=== PATIENT | female | born 1975 | race Caucasian/White ===

== ENCOUNTER 2024-01-19 11:29 | Outpatient (OUT) | payer OTHER, SELFPAY ==
--- NOTE | 2024-01-19 11:37 | XR_ITS ---
The [address] [address] Patient Name: FABRIZIO DOS SANTOS MRN: [id number] date: 1975 Sex: F Assigned Patient Location: RAD Current Patient Location: RAD Accession/Order Number: [id number] Exam Date: 01/19/2024 11:50 Report Date: 01/19/2024 13:24 At the request of: SLOAN SHERMAN Procedure: XR hip RT 2V w/ pelvis PROCEDURE: XR hip RT 2V w/ pelvis COMPARISON: None. HISTORY: Right Hip Pain M25.551 FINDINGS: BONES:No fracture, acute abnormality, or significant arthropathy. SOFT TISSUES:Negative. No visible soft tissue swelling. EFFUSION:None visible. OTHER: Large amount of stool throughout the colon. XR/XR hip RT 2V w/ pelvis IMPRESSION: No acute bony abnormality Electronically authenticated by: GERTRUDE DURÁN Date: 01/19/2024 13:24
== END 2024-01-19 11:30 | disposition home or self-care (01) ==
LOC: RAD 11:32
PROVIDERS: PCP Family Medicine; Visit Provider Family Medicine
DX: M25.551 Pain in right hip (principal)
CPT/HCPCS: 73502

== ENCOUNTER 2024-08-24 11:46 | Outpatient (OUT) | payer OTHER, SELFPAY ==
--- NOTE | 2024-08-24 11:51 | XR_ITS ---
The [address] [address] Patient Name: FABRIZIO DOS SANTOS MRN: [id number] date: 1975 Sex: F Assigned Patient Location: [facility] Current Patient Location: Accession/Order Number: [id number] Exam Date: 08/24/2024 11:55 Report Date: 08/25/2024 06:16 At the request of: SLOAN SHERMAN Procedure: XR hand LT min 3V PROCEDURE: XR wrist LT min 3V, XR hand LT min 3V HISTORY: Left Wrist Pain, Left Hand Pain ; first metacarpal pain radiating into wrist and arm since falling 5 weeks ago COMPARISON: None. FINDINGS: BONES:Several tiny ossifications adjacent the first carpal-metacarpal joint which appear to have corticated margins suggestive of sequela of remote injuries. Mild narrowing of the first carpal-metacarpal joint and the first metacarpophalangeal joint. SOFT TISSUES:No visible soft tissue swelling. EFFUSION:None visible. OTHER: Negative. XR/XR hand LT min 3V IMPRESSION: 1. 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 2. Several tiny ossifications adjacent the first carpal-metacarpal joint suspected represent sequela of remote injury. A subacute tiny avulsion fracture cannot be completely excluded. Electronically authenticated by: BRIGITTE VELAZQUEZ Date: 08/25/2024 06:16
--- NOTE | 2024-08-24 11:51 | XR_ITS ---
The [address] [address] Patient Name: FABRIZIO DOS SANTOS MRN: [id number] date: 1975 Sex: F Assigned Patient Location: [facility] Current Patient Location: Accession/Order Number: [id number] Exam Date: 08/24/2024 11:55 Report Date: 08/25/2024 06:16 At the request of: SLOAN SHERMAN Procedure: XR wrist LT min 3V PROCEDURE: XR wrist LT min 3V, XR hand LT min 3V HISTORY: Left Wrist Pain, Left Hand Pain ; first metacarpal pain radiating into wrist and arm since falling 5 weeks ago COMPARISON: None. FINDINGS: BONES:Several tiny ossifications adjacent the first carpal-metacarpal joint which appear to have corticated margins suggestive of sequela of remote injuries. Mild narrowing of the first carpal-metacarpal joint and the first metacarpophalangeal joint. SOFT TISSUES:No visible soft tissue swelling. EFFUSION:None visible. OTHER: Negative. XR/XR wrist LT min 3V IMPRESSION: 1. 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 2. Several tiny ossifications adjacent the first carpal-metacarpal joint suspected represent sequela of remote injury. A subacute tiny avulsion fracture cannot be completely excluded. Electronically authenticated by: BRIGITTE VELAZQUEZ Date: 08/25/2024 06:16
--- OUTSIDE RECORDS SUMMARY | 2024-08-24 11:58 | XMS_ITS | CCD ---
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 Name Role Phone Sloan Sherman MD Primary Care Provider Stanislaw Hutton MD Unavailable Rafi Salcedo MD Unavailable [phone] Edwin LOADERS.Arline MONTOYA Unavailable Chantal Carr RN Unavailable Juancho JOAQUIN, Radha Unavailable Unavailable Brit Brooks RN Unavailable Unavailable DR SLOAN SHERMAN Admitting Unavailable DR SLOAN SHERMAN Attending Unavailable DR SLOAN SHERMAN Consulting Unavailable Sloan Sherman MD Primary Care Provider Stanislaw Hutton MD Unavailable Rafi Salcedo MD Unavailable Edwin LOADERS.LINDSAY, Arline Unavailable Lilly CANALES Chantal Unavailable [phone] Brit Brooks RN Unavailable Unavailable Sloan Sherman MD Primary Care Provider Lilly CANALES, Chantal Unavailable Ayla Brooks RNin Unavailable Unavailable Sloan Sherman MD Primary Care Provider Stanislaw Hutton MD Unavailable Rafi Salcedo MD Unavailable Edwin LOADERS.LINDSAY, Arline Unavailable Lilly CANALES, Chantal Unavailable [phone] Juancho JOAQUIN, Radha Unavailable Unavailable Ayla Brooks RNin Unavailable Unavailable Sherman, Sloan Unavailable Lilly CANALES, Chantal Unavailable [phone] oTdd CANALES, Brit Unavailable Unavailable Asaad, Imad Unavailable Sloan Sherman MD Unavailable FABIANA LAMB Attending Unavailable ERICK PEDRO Attending Unavailable ERICK PEDRO Referring Unavailable Sloan Sherman MD Primary Care Provider SHERMAN, SLOAN E Primary Care Unavailable REENA SENIOR Attending Unavailable SHERMAN, SLOAN E Primary Care Unavailable BARRETO, DAPHNIE Referring Unavailable SHERMAN, SLOAN E Primary Care Unavailable SHERMAN, SLOAN E Referring Unavailable SHERMAN, SLOAN E Primary Care Unavailable CIOCE, JESSICA C Referring Unavailable CIOCE, JESSICA C Attending Unavailable SHERMAN, SLOAN E Primary Care Unavailable SHERMAN, SLOAN E Primary Care Unavailable CIOCE, JESSICA C Attending Unavailable SHERMAN, SLOAN E Primary Care Unavailable CIOCE, JESSICA C Referring Unavailable ELISHA, PAULA Referring Unavailable SHERMAN, SLOAN E Primary Care Unavailable SHERMAN, SLOAN E Primary Care Unavailable TRISTAKERTBENJYREENA Attending Unavailable SELF Referring Unavailable SHERMAN, SLOAN E Primary Care Unavailable PASKERTBENJYREENA Attending Unavailable SELF Referring Unavailable SHERMAN, SLOAN E Primary Care Unavailable ELISHA, PAULA Referring Unavailable SHERMAN, SLOAN E Primary Care Unavailable BARRETO, DAPHNIE Referring Unavailable ELISHA, PAULA Attending Unavailable SHERMAN, SLOAN E Primary Care Unavailable BARRETO, DAPHNIE Referring Unavailable SHERMAN, SLOAN E Primary Care Unavailable ELISHA, PAULA Referring Unavailable SHERMAN, SLOAN E Primary Care Unavailable CIOCE, JESSICA C Referring Unavailable SHERMAN, SLOAN E Primary Care Unavailable Pack, Shona Attending Unavailable SHERMAN, SLOAN E Primary Care Unavailable JOSHUA LAWS Attending Unavailable Pack, Shona Referring Unavailable SHERMAN, SLOAN E Primary Care Unavailable CIOCE, JESSICA C Referring Unavailable SHERMAN, SLOAN E Primary Care Unavailable FABIANA LAMB Referring Unavailable ELISHA, PAULA Referring Unavailable SHERMAN, SLOAN E Primary Care Unavailable BARRETO, DAPHNIE Attending Unavailable Allergies Allergy Classification Reported Allergen(s) Allergy Type Date of Onset Reaction(s) Facility Macrolides (antibiotic) (1 source) Erythromycin Drug Allergy 021 Vomiting [facility] Prochlorperazine (1 source) Prochlorperazine Drug Allergy Myalgia [facility] (20 sources) Erythromycin; Translations: [ERYTHROMYCIN BASE] Drug Allergy Vomiting [facility] (20 sources) Prochlorperazine; Translations: [PROCHLORPERAZINE] Drug Allergy Myalgia [facility] (1 source) Erythromycin Drug Allergy [facility] [place] [facility] (1 source) Prochlorperazine Drug Allergy [facility] [place] [facility] (6 sources) Allergies Reconciled Propensity to adverse reactions Unknown [facility] Other (7 sources) Compazine *ANTIPSYCHOTICS/ANT IMANIC AGENTS* Propensity to adverse reactions Unknown [facility] Other (6 sources) patient allergy list reviewed by nurse or physicia Propensity to adverse reactions Comment:Done [facility] Other Medications Current Medications Medication Drug Class(es) Dates Sig (Normalized) Sig (Original) Albuterol (1 source) beta2-Adrenergic Agonist Start: 02-03-2024 take 1 puff(s) by inhalation every four to six hours Albuterol Sulfate Active 2 PUFF INHALATION EVERY 4-6 HOURS 6.7 February 03, 2024 12:00am amoxicillin 500 mg oral capsule (1 source) Penicillin-class Antibacterial Start: 09-08-2023 take 1 capsule by mouth every eight hours Amoxicillin 500 MG 1 capsule Orally every 8 hrs for 5 day(s) Aug, Active anastrozole 1 mg oral tablet (20 sources) Aromatase Inhibitor Start: 11-16-2023 anastrozole (ARIMIDEX) 1 mg tablet take 1 tablet once daily 90 tablet 3 11/16/2023 Active Start: 01-15-2022 End: 12-02-2022 take 1 tablet by mouth every twenty-four hours Anastrozole 1 MG 1 tablet Orally Once a day for 0 days Feb, Active Comment on above: Take 1 tablet by shorty th once daily. azithromycin 250 mg oral tablet (6 sources) Macrolide Antimicrobial Start: 09-27-20 Azithromycin 250 MG as directed Orally 2 tabs po today, then 1 tab daily x 4 more days for 5 Sep, Active cefdinir 300 mg oral capsule (1 source) Cephalosporin Antibacterial Start: 02-03-20 take 300 mg by mouth twice daily Cefdinir Active 300 MG PO Twice daily February 03, 2024 12:00am cholecalciferol 0.025 mg oral capsule (8 sources) Vitamin D Start: 03-05-20 take 1 capsule by mouth every twenty-four hours Vitamin D-3 25 MCG (1000 UT) 1 capsule Orally Once a day for 0 days Feb, Active Start: 12-22-2021 End: 04-01-2022 take 1 capsule by mouth every week at mealtime cholecalciferol, Vitamin D3, (VITAMIN D3) 1,250 mcg (50,000 unit) cap capsule Take 1 capsule by mouth one time a week. With food 8 capsule 0 12/22/2021 04/01/2022 Discontinued Comment on above: Take 1 capsule by mo ut one time a week. With food dextromethorphan hydrobromide 15 mg / guaiFENesin 400 mg / pseudoephedrine hydrochloride 60 mg oral tablet (1 source) alpha-Adrenergic Agonist, Uncompetitive U-edxhxe-M-aspartate Receptor Antagonist, Sigma-1 Agonist Start: 4 take 4 tablets by mouth every twenty-four hours Pseudoephedrin v-Ny-Qguehxdgd in (Capmist Dm) 60-15-400 mg tablet Active 1 TAB PO EVERY 4-6 HOURS January 30, 2024 1:00am do not exceed 4 doses per 24 hrs 1.5 ml fremanezumab-vfrm 150 mg/ml prefilled syringe (20 sources) Start: Fremanezumab-V frm (Ajovy Autoinjector) 225 mg/1.5 mL auto-injector Active MG SUBCUT January 30, 2024 1:00am Start: 04-08-2022 AJOVY AUTOINJE CTOR 225 mg/1.5 mL auto-injector 04/08/2022 Active Glucosamine 1500 Complex (6 sources) Glucosamine 1500 Complex Active lamoTRIgine 100 mg oral tablet (20 sources) Mood Stabilizer, Anti-epileptic Agent Start: 03-05-2022 take 1 tablet by mouth every twenty-four hours lamoTRIgine 100 MG 1 tablet Orally Once a day for 0 days Feb, Active Start: 09-01-2019 lamoTRIgine 10 0MG lamoTRIgine( 100MG Oral two times daily ) Active -Hx Entry Oral two times daily for 0 *Pick strength-form from Placed for eRX* Feb, Active Comment on above: Take 100 mg by mouth twice daily. levothyroxine sodium 0.175 mg oral tablet (2 sources) l-Thyroxine Start: 2023 take 1 tablet by mouth once daily levothyroxine (SYNTHROID) 175 mcg tablet Take 1 tablet by mouth once daily. 90 tablet 3 06/26/2024 Active liothyronine sodium 0.005 mg oral tablet (2 sources) l-Triiodothyronine Start: 2023 take 1 tablet by mouth once daily liothyronine (CYTOMEL) 5 mcg tablet Take 1 tablet by mouth once daily. 90 tablet 3 06/26/2024 Active methylPREDNISolone 4 mg oral tablet (1 source) Corticosteroid Start: 2022 methylPREDNISolone 4 MG as directed Orally for 6 days Aug, Active multivit-min/vit C/herb no.124 (AIRBORNE GUMMY ORAL) (20 sources) multivit-min/vit C/herb no.124 (AIRBORNE GUMMY ORAL) Take by mouth. Active multivit-min/vit C/herb no.124 (AIRBORNE GUMMY ORAL) Take by mouth. 0 Active Comment on above: Take by mouth. oseltamivir 75 mg oral capsule (1 source) Neuraminidase Inhibitor Start: 01-30-20 24 take 1 capsule by mouth twice daily Oseltamivir (Tamiflu) 75 mg capsule Active 75 MG PO Twice daily 08 26January 30, 2024 1:00am polyethylene glycol 3350 [id number] mg / potassium chloride 2970 mg / sodium bicarbonate 6740 mg / sodium chloride 5860 mg / sodium sulfate 63485 mg powder for oral solution (5 sources) Osmotic Laxative Start: 10-08-20 23 take 236 g by mouth once daily PEG-3350/Electrolyt es 236 GM 4000 ML Orally once daily for 1 days Sep, Active predniSONE 20 mg oral tablet (1 source) Start: 01-30-20 24 take 20 mg by mouth twice daily Prednisone Active 20 MG PO Twice daily 08 26January 30, 2024 1:00am probiotic (6 sources) probiotic Active SUMAtriptan 100 mg oral tablet (20 sources) Serotonin-1b and Serotonin-1d Receptor Agonist Start: 09-01-20 SUMAtriptan Succinate 100 MG as directed Orally Once a day for 0 days Feb, Active Comment on above: Take 100 mg by mouth as needed. Take one tablet at onset of headache ,can repeat one time in 2 hours thyroid (correction) 120 mg oral tablet (20 sources) Start: 11-16-20 ARMOUR THYROID 120 mg tablet Take 1 tab daily EXCEPT WEDNESDAY TAKE NOTHING. 72 tablet 3 11/16/2023 Active Start: 03-05-2022 ARMOUR THYROID 120 mg tablet Take 1 tab six days only, NOTHING ONE DAY of the week. 0 10/25/2023 Active Start: 12-18-2021 End: 12-02-2022 take 1 tablet by mouth every twenty-four hours [place] Thyroid 120 MG 1 tablet on an empty stomach Orally Once a day for 0 days 14 Feb, 2022 Active Start: 09-01-2019 take 1 tablet by shorty th once daily Thyroid (Pork) ([place] Thyroid) 90 mg Tablet Active 90 MG PO Daily September 01, 2019 12:00am Comment on above: Take 1 tablet by shorty th once daily. Take 1 tab six days only, NOTHING ONE DAY of the week. Vitamin D-3 125 MCG(5000 UT) (6 sources) Start: 03-05-2022 Vitamin D-3 125 MCG(5000 UT) Vitamin D-3( 125 MCG(5000 UT) Oral ) Active -Hx Entry Oral for 0 *Pick strength-form from Placed for eRX* Feb, Active Completed/Discontinued Medications Medication Drug Class(es) Dates Sig (Normalized) Sig (Original) acetaminophen 325 mg oral tablet (1 source) Start: 04-06-2024 End: 04-06-2024 acetaminophen 650 mg tab(s) (TYLENOL) baclofen vaginal suppository 10 mg (CPD) (3 sources) Start: 05-26-2022 End: 06-25-2022 baclofen vaginal suppository 10 mg (CPD) Indications: High-tone pelvic floor dysfunction in female Unwrap and insert 1 suppository vaginally twice daily as needed. 30 Suppository 3 05/26/2022 06/25/2022 Start: 05-26-2022 End: 06-25-2022 baclofen vaginal suppository 10 mg (CPD) Indications: High-tone pelvic floor dysfunction in female Unwrap and insert 1 suppository vaginally twice daily as needed. 30 Suppository 3 05/26/2022 06/25/2022 Active Comment on above: Unwrap and insert 1 suppository vaginally twice daily as needed. 1 ml dexamethasone phosphate 4 mg/ml injection (1 source) Corticosteroid Start: 04-06-20 24 End: 04-06-20 24 dexAMETHasone sodium phosphate 8 mg injection (DECADRON) docusate sodium 100 mg oral capsule (7 sources) Start: 12-24-19 End: 04-01-20 take 1 capsule by mouth every twelve hours as needed docusate sodium (COLACE) 100 mg capsule Take 1 capsule by mouth twice daily as needed for constipation. 30 capsule 0 12/24/2021 04/01/2022 Discontinued Comment on above: Take 1 capsule by [facility] twice daily as needed for constipation. glucosamine HCl/chondroitin olivarez (GLUCOSAMINE-CHONDROI TIN ORAL) (7 sources) End: 04-01-20 glucosamine HCl/chondroitin olivarez (GLUCOSAMINE-CHONDRO ITIN ORAL) Take by mouth. 0 04/01/2022 Discontinued glucosamine HCl/ chondroitin olivarez (GLUCOSAMINE-CHONDROITIN ORAL) Take by mouth. 0 Active Comment on above: Take by mouth. ibuprofen 800 mg oral tablet (1 source) Nonsteroidal Anti-inflammatory Drug Start: 09-01-2019 End: 01-30-2024 Ibuprofen Discontinued 800 MG PO every 6 to 8 hours September 01, 2019 12:00am January 30, 2024 1:43pm lidocaine 0.05 mg/mg topical ointment (14 sources) Antiarrhythmic, Amide Local Anesthetic Start: 07-14-2022 End: 04-06-2023 lidocaine (XYLOCAINE) 5 % ointment Apply to affected area as needed. 30 g 1 07/14/2022 04/06/2023 Discontinued Start: 05-26-2022 End: 05-26-2022 lidocaine urojet 2 % 11 mL t opical gel (XYLOCAINE, GLYDO) Comment on above: Apply to affected ar ea as needed. magnesium carbonate (7 sources) End: 04-01-2022 MAGNESIUM CARBONATE ORAL Take by mouth. 0 04/01/2022 Discontinued MAGNESIUM CARBON ATE ORAL Take by mouth. 0 Active Comment on above: Take by mouth. meloxicam 15 mg oral tablet (1 source) Nonsteroidal Anti-inflammatory Drug Start: End: take 15 mg by mouth once daily Meloxicam Discontinued 15 MG PO Daily January 19, 2024 1:00am January 30, 2024 1:44pm 2 ml ondansetron 2 mg/ml injection (20 sources) Serotonin-3 Receptor Antagonist Start: 4 End: ondansetron (PF) 8 mg injection (ZOFRAN) Start: 04-01-2022 End: 06-15-2024 take 1 tablet by mouth every eight hours as needed ondansetron (ZOFRAN) 8 mg tablet Take 1 tablet by mouth every 8 hours as needed for nausea/vomiting. 30 tablet 1 04/01/2022 06/15/2024 Discontinued Comment on above: Take 1 tablet by shorty th every 8 hours as needed for nausea/vomiting. 24 hr oxybutynin chloride 10 mg extended release oral tablet (1 source) Cholinergic Muscarinic Antagonist Start: End: take 1 tablet by mouth once daily oxybutynin ER (DITROPAN XL) 10 mg 24 hr tablet Indications: Sensation of pressure in bladder area Take 1 tablet by mouth once daily. 90 tablet 0 05/07/2022 05/26/2022 Discontinued Comment on above: Take 1 tablet by shorty th once daily. traMADol hydrochloride 50 mg oral tablet (1 source) Opioid Agonist Start: End: Tramadol (Ultram) 50 mg tablet Discontinued 50 MG PO every 6 to 8 hours 08 23September 01, 2019 12:00am January 30, 2024 1:44pm vitamin b6 100 mg oral tablet (7 sources) End: take 1 tablet by mouth once daily pyridoxine, vitamin B6, (VITAMIN B-6) 100 mg tablet Indications: Acquired hypothyroidism Take 100 mg by mouth once daily. 0 04/01/2022 Discontinued Comment on above: Take 100 mg by mouth once daily. 100 ml zoledronic acid 0.04 mg/ml injection (8 sources) Bisphosphonate Start: End: 05-16-2 024 zoledronic vn-okgbrmhk-5.9NaCl 4 mg iv piggyback 100 mL (ZOMETA) Start: 03-05-2022 take 4 mg intravenously once Z ometa 4MG Zometa( 4MG Intravenous ) Active -Hx Entry Intravenous for 0 q6m per [facility] 14 Feb, 2022 Active Zoledronic Acid 4 MG/5ML as directed Intravenous q6m per [facility] Active Problems Active Problems Problem Classification Problem Date Documented Date Episodic/Chronic Cancer of breast (20 sources) 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; Translations: [Malignant neoplasm of unspecified site of left female breast] Onset: 01-30-2021 01-30-2021 Chronic Complications of surgical procedures or medical care (1 source) Adverse reaction to substance; Translations: [Other complications of procedures, not elsewhere classified, initial encounter] Episodic Epilepsy; convulsions (20 sources) Epilepsy; Translations: [Epilepsy, unspecified, not intractable, without status epilepticus] Onset: 09-21-2016 09-21-2016 Chronic Genitourinary symptoms and ill-defined conditions (7 sources) Urinary incontinence; Translations: [Unspecified urinary incontinence] Chronic Genitourinary symptoms and ill-defined conditions (20 sources) Unspecified symptoms and signs involving the genitourinary system; Translations: [Finding of sensation of bladder] Onset: 05-18-2017 Episodic Headache; including migraine (7 sources) Migraine without aura, not refractory ; Translations: [Migraine, unspecified, not intractable, without status migrainosus] Onset: 04-12-2017 Chronic Influenza (1 source) Influenza due to other identified influenza virus with other respiratory manifestations; Translations: [Influenza due to identified 2009 H1N1 influenza virus with other respiratory manifestations] 01-30-2024 Episodic Nonmalignant breast conditions (20 sources) Fibrocystic changes of bilateral breasts; Translations: [Diffuse cystic mastopathy of right breast] Onset: 11-04-2016 11-04-2016 Chronic Nutritional deficiencies (3 sources) Vitamin D deficiency; Translations: [Vitamin D deficiency, unspecified] Onset: 10-25-2023 09-14-2023 Chronic Other aftercare (3 sources) H/O: malignant neoplasm; Translations: [Encounter for follow-up examination after completed treatment for malignant neoplasm] Episodic Other connective tissue disease (2 sources) Spasm; Translations: [Other muscle spasm] Episodic Other connective tissue disease (1 source) Muscle weakness; Translations: [Muscle weakness (generalized)] Episodic Other connective tissue disease (1 source) Female pelvic floor dysfunction; Translations: [Other specified disorders of muscle] Episodic Other connective tissue disease (6 sources) Muscle pain; Translations: [MYALGIA, UNSPECIFIED SITE] Episodic Other female genital disorders (20 sources) Endometrial hyperplasia; Translations: [Endometrial hyperplasia, unspecified] Onset: 07-03-2021 07-03-2021 Chronic Other female genital disorders (1 source) Pain in female genitalia on intercourse; Translations: [Unspecified dyspareunia] Chronic Other female genital disorders (1 source) Pelvic floor dysfunction; Translations: [Other specified conditions associated with female genital organs and menstrual cycle] Episodic Other lower respiratory disease (2 sources) Rib pain; Translations: [Pleurodynia] 10-07-2023 Episodic Other non-traumatic joint disorders (7 sources) Joint pain; Translations: [Pain in unspecified joint] Episodic Other non-traumatic joint disorders (1 source) Hip pain; Translations: [Pain in right hip] 01-19-2024 Episodic Other non-traumatic joint disorders (1 source) Pain in right hip; Translations: [Pain in joint, pelvic region and thigh] 01-19-2024 Episodic Other nutritional; endocrine; and metabolic disorders (7 sources) Body mass index 25-29 - overweight; Translations: [Body mass index (BMI) 27.0-27.9, adult] Episodic Residual codes; unclassified (1 source) H/O: artificial organ/tissue; Translations: [Other specified postprocedural states] Episodic Residual codes; unclassified (7 sources) Family history of malignant neoplasm of gastrointestinal tract; Translations: [Family history of malignant neoplasm of digestive organs] Episodic Residual codes; unclassified (2 sources) History of breast reconstruction; Translations: [Other specified postprocedural states] 04-07-2024 Episodic Skin and subcutaneous tissue infections (7 sources) Cellulitis and abscess of buttock; Translations: [Cutaneous abscess of buttock] Episodic Thyroid disorders (20 sources) Hypothyroidism; Translations: [Hypothyroidism, unspecified] Onset: 11-22-2006 02-10-2021 Chronic Urinary tract infections (1 source) Chronic interstitial cystitis; Translations: [Interstitial cystitis (chronic) without hematuria] Chronic Past or Other Problems Problem Classification Problem Date Documented Date Episodic/Chronic Cancer of breast (5 sources) History of malignant neoplasm of breast; Translations: [Personal history of malignant neoplasm of breast] Onset: 4 Episodic Nonmalignant breast conditions (20 sources) Mammographic microcalcification of breast; Translations: [Mammographic microcalcification found on diagnostic imaging of breast] Onset: 5 05-14-2015 Episodic Other aftercare (20 sources) Prophylactic aromatase inhibitors given; Translations: [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] Onset: 2 Episodic Other aftercare (1 source) care home (current) use of aromatase inhibitors; Translations: [Aromatase inhibitor use] Onset: 2 Episodic Other lower respiratory disease (1 source) Pleurodynia; Translations: [Rib pain on right side] Onset: 3 Episodic Other non-traumatic joint disorders (20 sources) Multiple joint pain; Translations: [Pain in unspecified joint] Onset: 2 Episodic Other screening for suspected conditions (not mental disorders or infectious disease) (20 sources) Mammographic breast tissue appearance; Translations: [Inconclusive mammogram] Onset: 6 11-04-2016 Episodic Other upper respiratory infections (9 sources) Acute maxillary sinusitis; Translations: [Acute recurrent maxillary sinusitis] Onset: 7 Episodic Residual codes; unclassified (20 sources) Family history of cancer of colon; Translations: [Family history of malignant neoplasm of digestive organs] Onset: 6 11-04-2016 Episodic Residual codes; unclassified (20 sources) History of thoracic surgery; Translations: [Other specified postprocedural states] Onset: 6 11-04-2016 Episodic Residual codes; unclassified (20 sources) At risk of lymphedema; Translations: [Other specified personal risk factors, not elsewhere classified] Onset: 1 01-30-2021 Episodic Residual codes; unclassified (20 sources) Past history of procedure; Translations: [Other specified postprocedural states] Onset: 6 11-04-2016 Episodic Residual codes; unclassified (2 sources) Family history of malignant neoplasm of digestive organs; Translations: [Family history of colon cancer] Onset: 6 Episodic Residual codes; unclassified (1 source) Other specified postprocedural states; Translations: [S/P breast reconstruction] Onset: 4 Episodic Results Test Name Value Interpretation Reference Range Facility CNOVon 07-03-2024 CNOV Office Visit (PLASMN ) PAYAL DOS SANTOS ([id number]) 1975 F Date Time Provider Department 07/03/24 8:00 AM REENA SENIOR During your visit today, we recorded the following information about you: Blood pressure 126/76 Reena Senior PA-C 07/03/2024 12:19 PM Signed Patient verified by: Name, Medical Record Number and Date of Site of the procedure confirmed:Yes Site: bilateral reconstructed nipple areolar complexes Staff involved: Reena Senior PA-C PRE-PROCEDURE DIAGNOSIS: hx of breast cancer, hx of breast reconstruction PROCEDURAL TIME OUT: Time out verification includes:Two Patient Identifiers Correct side and site marking Agreement on the procedure to be done Correct Positioning Safety Precautions Based on Patient History or Medication ANESTHESIA: 10cc (5cc per NAC) of lidocaine 1% with epinephrine 1:200,000; confirmation by local sharp sensation testing. PROCEDURE: After achieving local anesthesia, the bilateral areas were prepped with Hibiclens and draped in the typical fashion. Inks were mixed in the typical sterile container. An 11 needle cluster were used to drive inks into the deep scar tissue of bilateral nipple areolar complexes >20cm2 until diffuse re pigmentation was achieved. There was not significant blood loss requiring hemostasis. The area was cleaned with sterile NSS, triple antibiotic ointment placed, and dressed with a sterile nonstick dressing. Measurements of area tattooed: 5 cm x 4.5 cm Ink used: sandstone 1, desert adela, blonde K21, blush (intentionally made darker due to previous fading) Estimated Blood Loss: none Complications: None Condition of Patient After Procedure: stable/unchanged. POST-PROCEDURE DIAGNOSIS: hx of breast cancer, hx of breast reconstruction. POST-PROCEDURE RECOMMENDATIONS: - Ok to shower today - Antibiotic ointment for 3 days - Vaseline or aquaphor to affected area following shower 1 week - Dry dressing if having slight bleeding/seeping -No heavy activity/friction/sweat ing on area for 2 - 3 days - f/u 2 months as needed or sooner if issues arise Reena Senior PA-C 07/03/2024 Reena Senior PA-C 07/03/2024 9:53 AM Signed POST-PROCEDURE RECOMMENDATIONS: - Ok to shower today - Antibiotic ointment for 3 days - Vaseline or aquaphor to affected area following shower 1 week/as long as there is scabbing/peeling - Dry dressing if having slight bleeding/seeping -No submerging in water until there is no bleeding or seeping - f/u 1 month as needed or sooner if issues arise Referring Provider: SELF [[id number]] Allergies As of Date: 07/03/2024 Noted Allergy Reaction COMPAZINE (PROCHLORPERAZINE) 02/27/2021 17 - Myalgia ERYTHROMYCIN BASE 03/19/2021 11 - Vomiting Date Reviewed: 07/03/2024 Reviewed by: Tiesha Morales RN - Fully Assessed Reason for Visit: Procedure [88] Primary Visit Diagnosis:Breast asymmetry following reconstructive surgery [N65.1] Prescriptions as of 07/03/2024 - levothyroxine (SYNTHROID) 175 mcg tablet Take 1 tablet by mouth once daily. - liothyronine (CYTOMEL) 5 mcg tablet Take 1 tablet by mouth once daily. - anastrozole (ARIMIDEX) 1 mg tablet take 1 tablet once daily - AJOVY AUTOINJECTOR 225 mg/1.5 mL auto-injector - multivit-min/vit C/herb no.124 (AIRBORNE GUMMY ORAL) Take by mouth. - lamoTRIgine (LAMICTAL) 100 mg tablet Take 100 mg by mouth twice daily. - SUMAtriptan 100 mg tablet Take 100 mg by mouth as needed. 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 Invasive ductal carcinoma of breast, female, le*01/30/2021 At risk for lymphedema [Z91.89] 01/30/2021 Hypothyroidism [E03.9] 2007 Endometrial hyperplasia [N85.00] 07/03/2021 Breast asymmetry following reconstructive surge*12/16/2021 Aromatase inhibitor use [Z79.811] 07/31/2022 Arthralgia of multiple sites [M25.50] 07/31/2022 Other instructions from your clinician: POST-PROCEDURE RECOMMENDATIONS: - Ok to shower today - Antibiotic ointment for 3 days - Vaseline or aquaphor to affected area following shower 1 week/as long as there is scabbing/peeling - Dry dressing if having slight bleeding/seeping -No submerging in water until there is no bleeding or seeping - f/u 1 month as needed or sooner if issues arise Encounter Status:Closed by REENA SENIOR on 07/03/24 Normal [facility] T3Free SerPl-mCncon 06-19-20 24 Free T3 [Mass/Vol] 5.6 pg/mL High 2.3-4.1 [facility] Comment on above: Order Comment: Speci men Type: BLOOD SPECIMEN Ordering Facility: [facility] Address: [address] [place] [address] Performed By: #### 1 989-3 #### [facility] CLIA [id number] [address] [place] [address] [id number] [place] [address] [place] T4 Free SerPl-mCncon 07-29-2 024 Free T4 [Mass/Vol] 0.9 ng/dL Normal 0.9-1.7 [facility] Comment on above: Order Comment: Muna laws Type: BLOOD SPECIMEN Ordering Facility: [facility] Address: [address] [place] [address] Performed By: #### 1 989-3 #### [facility] CLIA [id number] [address] [place] [address] [place] TSH SerPl-aCncon 06-19-2024 TSH Qn 1.340 m[IU]/L Normal 0.270-4.200 [facility] Comment on above: Order Comment: Muna laws Type: BLOOD SPECIMEN Ordering Facility: [facility] Address: [address] [place] [address] Result Comment: If t he patient is , TSH reference range varies by gestational period: First Trimester (weeks 9-12): 0.180-2.990 mIU/L Second Trimester: 0.110-3.980 mIU/L Third Trimester: 0.480-4.710 mIU/L Drew Carty et al. A Practical Approach for the Verifications and Determination of Site- and Trimester-Specific Reference Intervals for Thyroid Function tests in . Thyroid, 2019:29:3:412-420. Alberto Arellano, et al. 2017 Guidelines of the [place] Thyroid Association for the Diagnosis and Management of Thyroid Disease during and the . Thyroid, 2017:27:3:315-389. Performed By: #### 1 989-3 #### [facility] CLIA [id number] [address] [place] [address] [place] CNOVon 04-06-2024 CNOV Office Visit (PLASMN ) PAYAL DOS SANTOS ([id number]) 1975 F Date Time Provider Department 04/06/24 3:40 PM REENA SENIOR During your visit today, we recorded the following information about you: Lincoln AgataYOLANDA 04/07/2024 9:57 AM Signed Intake information documented in the prior visit with today. Reena Senior PA-C 04/07/2024 9:57 AM Signed Plastic Surgery Clinic Visit CC: 48 year old female that presents today for tattoo consult HPI: Patient has a history of bilateral breast reconstruction with implants. She had tattoos completed in 2021, but tattoos have since faded and she would like them redone. She has not noticed any changes with the implants or new swelling, change in shape or new mass. She does have a lump in the upper pole of the left breast, but she had an US that showed benign changes and the area is unchanged since the ultrasound. 07/31/22 IMPRESSION: BENIGN FINDING There is no sonographic evidence of malignancy. Multiple areas of oily cysts/fat necrosis extending within the patient's palpable areas/area of pain, which are benign. Findings are compatible with the patient's history of fat injections. Clinical follow-up is recommended. Follow-up with ACR/NCCN guidelines. ROS: PAIN ASSESSMENT: Negative for pain, history of chronic pain, or current treatment for a chronic pain condition. GENERAL: No weight loss, malaise or fevers RESPIRATORY: Negative for cough, hemoptysis, wheezing, COPD, dyspnea or shortness of breath CARDIOVASCULAR: Negative for chest pain, leg swelling, hypertension, CHF or palpitations MUSCULOSKELETAL: Negative for joint pain or swelling, back pain or muscle pain SKIN: Negative for lesions, rash, and itching PSYCH: Negative for sleep disturbance, mood disorder and recent psychosocial stressors PMH: PAST MEDICAL HISTORY Diagnosis Date Breast cancer (HCC) 02/2021 Delayed emergence from general anesthesia Epilepsy (HCC) 11/22/1997 Hypothyroidism 11/22/2006 PONV (postoperative nausea and vomiting) PSH: PAST SURGICAL HISTORY Procedure Laterality Date CYSTOSCOPY 05/26/2022 DR. VERONICA BURGESS [facility] MAMM STEREOTACTIC BREAST BIOPSY (HL,SP,MM) 05/20/2015 left breast MASTECTOMY HX 01/2021 bilateral PAST SURGICAL HISTORY OF breast biopsy PAST SURGICAL HISTORY OF 08/2019 [facility] PAST SURGICAL HISTORY OF wisdom teeth extraction - once in high school, 2nd time 2012 PAST SURGICAL HISTORY OF 08/18/2021 breast reconstruction TOTAL ABDOM HYSTERECTOMY 2020 SOC: Social History Tobacco Use Smoking status: Never Smokeless tobacco: Never Vaping Use Vaping Use: Never used Substance Use Topics Alcohol use: Yes Comment: Rarely Drug use: No HCC: Meds: Current Outpatient Medications on File Prior to Visit Medication Sig anastrozole (ARIMIDEX) 1 mg tablet take 1 tablet once daily ARMOUR THYROID 120 mg tablet Take 1 tab daily EXCEPT WEDNESDAY TAKE NOTHING. AJOVY AUTOINJECTOR 225 mg/1.5 mL auto-injector ondansetron (ZOFRAN) 8 mg tablet Take 1 tablet by mouth every 8 hours as needed for nausea/vomiting. multivit-min/vit C/herb no.124 (AIRBORNE GUMMY ORAL) Take by mouth. lamoTRIgine (LAMICTAL) 100 mg tablet Take 100 mg by mouth twice daily. SUMAtriptan 100 mg tablet Take 100 mg by mouth as needed. Take one tablet at onset of headache ,can repeat one time in 2 hours No current facility-administered medications on file prior to visit. Exam: Bilateral breast with implants in place, soft, no capsular contracture Palpable lump un upper pole of left breast - consistent with oil cysts/fat necrosis Otherwise, no lumps, masses, palpable seroma in breasts Bilateral nipple tattoo significantly faded -with left more faded than right Assessment: Faded nipple tattoos Plan: Plan for bilateral nipple tattooing. Submit to insurance. Photos today. Reena Senior PA-C 04/07/2024 Allergies As of Date: 04/06/2024 Noted Allergy Reaction COMPAZINE (PROCHLORPERAZINE) 02/27/2021 17 - Myalgia ERYTHROMYCIN BASE 03/19/2021 11 - Vomiting Date Reviewed: 04/06/2024 Reviewed by: Rachana López RN - Fully Assessed Reason for Visit: Consult [173] Primary Visit Diagnosis:Breast asymmetry between [place] breast and reconstructed breast [N65.1] Other Visit Diagnoses:Breast asymmetry following reconstructive surgery [N65.1] S/P breast reconstruction [Z98.890] Personal history of malignant neoplasm of breast [Z85.3] Order(s):SURGICAL REQUEST - ELECTIVE (06/2020) [[id number]] Order #: [id number]: 1 Prescriptions as of 04/07/2024 - anastrozole (ARIMIDEX) 1 mg tablet take 1 tablet once daily - ARMOUR THYROID 120 mg tablet Take 1 tab daily EXCEPT WEDNESDAY TAKE NOTHING. - AJOVY AUTOINJECTOR 225 mg/1.5 mL auto-injector - ondansetron (ZOFRAN) 8 mg tablet Take 1 tablet by mouth every 8 hours as needed for nausea/vo (more content not included)... Normal [facility] CNOVSPon 04-06-2024 CNOVSP Visit (SP) Office (HEMCA4) PAYAL DOS SANTOS ([id number]) 1975 F Date Time Provider Department 04/06/24 9:00 AM DAPHNIE BARRETO HEMNV4 During your visit today, we recorded the following information about you: Temperature Pulse Respiration Blood pressure 97.3 degrees 82/minute 18/minute 119/65 Weight 83.4 kg Daphnie Barreto MD 04/06/2024 9:44 AM Signed IDENTIFICATION: Payal Dos Santos is a 48 year old surgically postmenopausal woman with a [id number] G2 ER-positive, IN-positive, HER2-negative (Oncotype Dx RS of 19) left breast cancer diagnosed in December 2020 presenting today for follow-up. She was treated with bilateral mastectomy and left sentinel lymph node biopsy with bilateral implant reconstruction, adjuvant docetaxel and cyclophosphamide chemotherapy, EDWARD/BSO in June 2021 and initiated anastrozole in July 2021 with addition of zoledronic acid in September 2021. Due to side effects, anastrozole was changed to letrozole and then to exemestane and, due to cost, back to anastrozole. CURRENT SYSTEMIC THERAPY FOR BREAST CANCER: anastrozole 1 mg PO daily and zoledronic acid (every 6 months). INTERVAL HISTORY: She is doing well. Arthralgias are doing better with regular use of glucosamine and chondroitin. She has some intermittent left axillary discomfort, particularly after sleeping on her left side and also has some tingling sensations in the lateral reconstructed breast on that side. She reports no other new symptoms of concern. She is walking regularly for exercise (usually with the dog). PERTINENT PMH/FH/SH: She is s/p hysterectomy and BSO. She has a h/o hypothyroidism, migraines and seizure disorder (well controlled since 2001). There is no known breast cancer history in the family. Her father had colon cancer, paternal grandmother had ovarian cancer and maternal grandfather had prostate cancer. 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 EXAMINATION: Blood pressure 119/65, pulse 82, temperature 36.3 ?C (97.3 ?F), temperature source Temporal, resp. rate 18, weight 83.4 kg (183 lb 12.8 oz), last menstrual period 04/14/2021, SpO2 100%. HEENT examination is unremarkable. No adenopathy is appreciated in the cervical or supraclavicular regions. The heart is regular. Lung examination is clear bilaterally. Examination of the left reconstructed breast reveals no evidence of local recurrence; there are some subcentimeter nodularities superior consistent with the known oil cysts. The right reconstructed breast is free of concerning masses. No axillary adenopathy is appreciated. The abdomen is soft and nontender. There is no significant edema of the extremities. DATA: Bone density study 10/07/23 was normal (lowest T-score 0.1) Left breast ultrasound 07/31/22 demonstrated multiple areas of oil cysts and fat necrosis with no findings of concern. IMPRESSION: [id number] G2 ER-positive, IN-positive, HER2-negative left breast cancer, s/p bilateral mastectomy and left sentinel lymph node biopsy, adjuvant chemotherapy, BSO and ongoing anastrozole; free of signs and symptoms of recurrent disease. PLAN: She will continue active therapy with anastrozole 1 mg PO daily with the intent to complete 7 years. She will receive her 6th and final planned zoledronic acid treatment today. We reviewed the most recent bone density result and will plan to complete the study after 2 years. She will return in about 6 months to see Paula Tello CNP. I will plan to see her in about 1 year. She had the opportunity to have her questions addressed. I spent a total of about 30 minutes on the date of the service which included preparing to see the patient, [id number] patient care, completing clinical documentation, performing a medically appropriate examination, counseling and educating the patient/family/caregive r, ordering medications, tests, or procedures, and communicating results to the patient/family/caregive r. MD Jaun Jose Hardwick Angela, LPN 04/06/2024 9:44 AM Signed Additional intake questions: Has the patient had fever, nausea, vomiting, diarrhea, constipation, fatigue for > 1 week? No Does the patient have a decreased appetite? No Does patient want to see a Seafood Preparer? No (yes to any of above refer patient to schedulers for dietitian appointment) ) Does patient have any new or increased numbness or tingling of extremities? No Is patient interested in fertility information? NA Does patient need any prescription refills? No Does patient have an advanced directive in place? Yes, copies are in Epic Electronically Signed By: Fabiana Ingram LPN Referring Provider: PAULA TELLO [[id number]] Allergies As of Date: 04/06/2024 Noted Allergy Reaction COMPAZINE (PROCHLORPERAZINE) 02/27/2021 17 - Myalgia ERYTHROMYCIN BASE 03/19/2021 11 - Vomiting Date Reviewed: (more content not included)... Normal [facility] 25(OH)D3 SerPl-nc 2023 25-hydroxyvitamin D3 [Mass/Vol] 67.8 ng/mL Normal 31.0-80.0 [facility] Comment on above: Order Comment: Speci men Type: BLOOD SPECIMEN Ordering Facility: [facility] Address: [address] [place] [address] Result Comment: Clas sification of 25 OH Vitamin D status: Deficiency/Insufficiency: < or = 30 ng/ml. Sufficiency/Optimal Levels: 31-80 ng/mL Toxicity: > 100 ng/mL. Test performed by chemiluminescent immunoassay. Performed By: #### 1 989-3 #### [facility] CLIA [id number] [address] [place] [address] [place] [address] [place] Basic metabolic 2000 panelon 04-05-2024 Anion gap [Moles/Vol] 10 mmol/L Normal 9-18 [facility] Comment on above: Order Comment: Speci men Type: BLOOD SPECIMENOrdering Facility: [facility] Address: [address] [place] [address] Performed By: #### 2 4321-2 ####[facility] [id number] [place] [address] Calcium [Mass/Vol] 10.2 mg/dL Normal 8.5-10.2 [facility] Comment on above: Order Comment: Speci men Type: BLOOD SPECIMENOrdering Facility: [facility] Address: [address] [place] [address] Performed By: #### 2 4321-2 ####[facility] [id number] [place] [address] Chloride [Moles/Vol] 105 mmol/L Normal 97-105 [facility] Comment on above: Order Comment: Speci men Type: BLOOD SPECIMENOrdering Facility: [facility] Address: [address] [place] [address] Performed By: #### 2 4321-2 ####[facility] [id number] [place] [address] CO2 [Moles/Vol] 26 mmol/L Normal 22-30 [facility] Comment on above: Order Comment: Speci men Type: BLOOD SPECIMENOrdering Facility: [facility] Address: [address] [place] [address] Performed By: #### 2 4321-2 ####[facility] [id number] [place] [address] Creatinine [Mass/Vol] 0.97 mg/dL High 0.58-0.96 [facility] Comment on above: Order Comment: Speci men Type: BLOOD SPECIMENOrdering Facility: [facility] Address: [address] [place] [address] Performed By: #### 2 4321-2 ####[facility] [id number] [place] [address] Creatinine and Glomerular filtration rate.predicted panel (S/P/Bld) 72 mL/min/1.73m??? Normal >=60 [facility] Comment on above: Order Comment: Muna laws Type: BLOOD SPECIMENOrdering Facility: [facility] Address: [address] [place] [address] Result Comment: Heidy mated Glomerular Filtration Rate (eGFR) is calculated using the 2020 CKD-EPI creatinine equation. This equation utilizes serum creatinine, sex, and age as parameters. The creatinine assay has traceable calibration to isotope dilution-mass spectrometry. Refer to KDIGO guidelines for clinical interpretation. In patients with unstable renal function, e.g. those with acute kidney injury, the eGFR may not accurately reflect actual GFR. Performed By: #### 2 4321-2 ####[facility]IA [id number] [place] [address] Glucose [Mass/Vol] 119 mg/dL High 74-99 [facility] Comment on above: Order Comment: Speci veto Type: BLOOD SPECIMENOrdering Facility: [facility] Address: [address] [place] [address] Result Comment: The [place] Diabetes Association (ADA) provides guidance for cutoff values for fasting glucose and random glucose. The ADA defines fasting as no caloric intake for at least 8 hours. Fasting plasma glucose results between 100 to 125 mg/dL indicate increased risk for diabetes (prediabetes). Fasting plasma glucose results greater than or equal to 126 mg/dL meet the criteria for diagnosis of diabetes. In the absence of unequivocal hyperglycemia, results should be confirmed by repeat testing. In a patient with classic symptoms of hyperglycemia or hyperglycemic crisis, random plasma glucose results greater than or equal to 200 mg/dL meet the criteria for diagnosis of diabetes. Reference: Standards of Medical Care in Diabetes 2016, [place] Diabetes Association. Diabetes Care. 2016.39(Suppl 1). Performed By: #### 2 4321-2 ####[facility] [id number] [place] [address] Potassium [Moles/Vol] 4.3 mmol/L Normal 3.7-5.1 [facility] Comment on above: Order Comment: Speci men Type: BLOOD SPECIMENOrdering Facility: [facility] Address: [address] [place] [address] Performed By: #### 2 4321-2 ####[facility] [id number] [place] [address] Sodium [Moles/Vol] 141 mmol/L Normal 136-144 [facility] Comment on above: Order Comment: Speci men Type: BLOOD SPECIMENOrdering Facility: [facility] Address: [address] [place] [address] Performed By: #### 2 4321-2 ####[facility] [id number] [place] [address] Urea nitrogen [Mass/Vol] 14 mg/dL Normal 7-21 [facility] Comment on above: Order Comment: Speci men Type: BLOOD SPECIMENOrdering Facility: [facility] Address: [address] [place] [address] Performed By: #### 2 4321-2 ####[facility]IA [id number] [place] [address] T3Free SerPl-mCncon 04-05-20 24 Free T3 [Mass/Vol] 2.3 pg/mL Normal 2.3-4.1 [facility] Comment on above: Order Comment: Speci men Type: BLOOD SPECIMEN Ordering Facility: [facility] Address: [address] [place] [address] Performed By: #### 1 989-3 #### [facility] CLIA [id number] [address] [place] [id number] [place] [address] [place] T4 Free SerPl-mCncon 024 Free T4 [Mass/Vol] 0.7 ng/dL Low 0.9-1.7 [facility] Comment on above: Order Comment: Speci men Type: BLOOD SPECIMEN Ordering Facility: [facility] Address: [address] [place] [address] Performed By: #### 1 989-3 #### [facility] CLIA [id number] [address] [place] [address] [place] TSH SerPl-aCncon 04-05-2024 TSH Qn 0.818 m[IU]/L Normal 0.270-4.200 [facility] Comment on above: Order Comment: Muna laws Type: BLOOD SPECIMEN Ordering Facility: [facility] Address: [address] [place] [address] Result Comment: If t he patient is , TSH reference range varies by gestational period: First Trimester (weeks 9-12): 0.180-2.990 mIU/L Second Trimester: 0.110-3.980 mIU/L Third Trimester: 0.480-4.710 mIU/L Drew Carty et al. A Practical Approach for the Verifications and Determination of Site- and Trimester-Specific Reference Intervals for Thyroid Function tests in . Thyroid, 2019:29:3:412-420. Alberto Arellano, et al. 2017 Guidelines of the [place] Thyroid Association for the Diagnosis and Management of Thyroid Disease during and the . Thyroid, 2017:27:3:315-389. Performed By: #### 1 989-3 #### [facility] CLIA [id number] [address] [place] [address] [place] lamoTRIgine SerPl-mCncon lamoTRIgine [Mass/Vol] 2.8 ug/mL Normal 1.0-13.0 [facility] Comment on above: Order Comment: Muna laws Type: BLOOD SPECIMEN Ordering Facility: External Submitter Address: , , Result Comment: This test was developed and its performance characteristics determined by [facility]'s [facility] [place] ([facility]). It has not been cleared or approved by the FDA. -[facility] is regulated under CLIA as qualified to perform high-complexity testing. This test is used for clinical purposes. It should not be regarded as investigational or for research. Performed By: #### 6 948-4 #### [facility] CLIA [id number] [address] [place] [address] [place] Influenza virus A and B and SARS-CoV-2 (COVID-19) RNA panel - Respiratory system specon 01-30-2024 Influenza virus A and B RNA and SARS-CoV-2 (COVID-19) N gene panel DENG+probe (Resp) Positive [facility] - Microbiology an d Antimicrobial susceptibilityon 01-30-2024 SARS-CoV-2 (COVID-19) RNA DENG+probe Ql (Unsp spec) Negative [facility] No Panel Informationon 01-29 POC Influenza B (DENG) Negative [facility] T3Free SerPl-mCncon 12-06-19 24 Free T3 [Mass/Vol] 6.3 pg/mL High 2.3-4.1 [facility] Comment on above: Order Comment: Speci men Type: BLOOD SPECIMENOrdering Facility: [facility] Address: [address] [place] [address] Performed By: #### 3 016-3, 3024-7, 3051-0 ####[facility]IA [id number] [place] [address] [place] T4 Free SerPl-mCncon 024 Free T4 [Mass/Vol] 1.0 ng/dL Normal 0.9-1.7 [facility] Comment on above: Order Comment: Speci men Type: BLOOD SPECIMENOrdering Facility: [facility] Address: [address] [place] [address] Performed By: #### 3 016-3, 3024-7, 3051-0 ####[facility]IA [id number] [place] [address] [place] TSH SerPl-aCncon 12-06-2023 TSH Qn 0.417 m[IU]/L Normal 0.270-4.200 [facility] Comment on above: Order Comment: Speci men Type: BLOOD SPECIMENOrdering Facility: [facility] Address: [address] [place] [address] Result Comment: If t he patient is , TSH reference range varies by gestational period: First Trimester (weeks 9-12): 0.180-2.990 mIU/L Second Trimester: 0.110-3.980 mIU/L Third Trimester: 0.480-4.710 mIU/L Drew Carty et al. A Practical Approach for the Verifications and Determination of Site- and Trimester-Specific Reference Intervals for Thyroid Function tests in . Thyroid, 2019:29:3:412-420. Alberto Arellano, et al. 2017 Guidelines of the [place] Thyroid Association for the Diagnosis and Management of Thyroid Disease during and the . Thyroid, 2017:27:3:315-389. Performed By: #### 3 016-3, 3024-7, 3051-0 ####[facility] [id number] [address] [place] ANES POSTPROC EVALon 024 ANES POSTPROC EVAL HNO ID: [id number] Author: RINA FLYNN MD Service: ? Author Type: Anesthesiologist Type: Anesthesia Postprocedure Evaluation Filed: 11/26/2023 16:20 Note Text: POST ANESTHESIA EVALUATION NOTE : 1975 Procedure Summary Date: 11/26/23 Room / Location: Gastroenterology Anesthesia Start: 1453 Anesthesia Stop: 1553 Procedure: COLONOSCOPY SCREENING Diagnosis: Screening for colon cancer Family history of colon cancer (Screening for colorectal malignant neoplasm) Scheduled Providers: Herman Jordan MD; Rina Flynn MD; Joshua Laws APRN.MANAGER OF DEVELOPMENT Responsible Provider: Rina Flynn MD Anesthesia Type: general ASA Status: 2 Anesthesia Type: general Airway Type: anesthesia mask Last Vitals Vitals Value Taken Time BP 127/77 11/26/23 1617 Temp 36 11/26/23 1620 Pulse 79 11/26/23 1617 Resp 18 11/26/23 1600 SpO2 100 % 11/26/23 1617 Vitals shown include unfiled device data. Post Anesthesia Patient Status Patient Evaluation: PACU. PACU/ICU Patient Condition: stable. Anticipated Disposition: phase 2 then home. Neurological Status: aware and responsive. Pulmonary Status: breathing comfortably on room air Airway Control: returned to baseline unsupported. Cardiovascular Status: stable. Pain Management: clinically adequate Postoperative Hydration: acceptable. Intraoperative Events: no significant anesthesia events Post Operative Nausea/Vomiting Status: no significant post operative nausea or vomiting Recommendation: further care per PACU/ICU/floor team. Anesthesia Observations No Documentation SIGNATURE: Rina Flynn MD PATIENT NAME: Payal Dos Santos DATE: November 26, 2023 TIME: 4:20 PM CSN: [id number] [facility] ANES PRE-OPon 11-26-2023 ANES PRE-OP HNO ID: [id number] Author: RINA FLYNN MD Service: ? Author Type: Anesthesiologist Type: Anesthesia Preprocedure Evaluation Filed: 11/26/2023 14:45 Note Text: ANESTHESIOLOGY DAY OF SURGERY NOTE : 1975 Procedure Information Date/Time: 11/26/23 1530 Scheduled providers: Herman Jordan MD; Rina Flynn MD; Joshua Laws APRN.MANAGER OF DEVELOPMENT Procedure: COLONOSCOPY SCREENING Location: Gastroenterology Estimated body mass index is 26.5 kg/m? as calculated from the following: Height as of this encounter: 180.3 cm (5' 11 ). Weight as of this encounter: 86.2 kg (190 lb). Most recent hematocrit and potassium results: Hematocrit 40.2 10/12/2023 Potassium 4.3 10/12/2023 Relevant Problems ENDO (+) Hypothyroidism NEURO-PSYCH (+) Epilepsy (HCC) I - PHYSICAL EVALUATION AIRWAY Patient intubated: No. Tracheostomy tube not present Mallampati: II. TM distance: >3 FB. Neck ROM: full ROM without neurological symptoms. Mouth opening: adequate. Short neck: no. Thick neck: no Wang present: no DENTAL Dental findings: teeth intact. II - ANESTHESIA PLAN ASA Score: 2 Anesthetic Plan: general Airway type: anesthesia mask The patient is not a current smoker. NPO Status: adequate Beta Linnette Monitoring Plan Monitoring plan: standard ASA. Post Procedure Analgesic Plan Postoperative analgesic plan: multimodal analgesia. Informed Consent Anesthetic risks, benefits, alternatives, personnel and consent discussed: yes. Patient / Responsible Alliance Party agrees to proceed: yes Patient / Surrogate agrees to blood products: Yes Significant changes in the patient condition since the History and Physical, not otherwise documented in primary service progress note: no. Potential Anesthesia issues that may suggest increased risk of complications or contraindication to planned procedure: none. Vitals Value Taken Time BP 140/87 11/26/23 1440 Pulse 94 11/26/23 1440 Resp Temp 36.7 ?C (98.1 ?F) 11/26/23 1440 SpO2 100 % 11/26/23 1440 Outpatient Medications as of 11/26/2023 Medication Sig - anastrozole (ARIMIDEX) 1 mg tablet take 1 tablet once daily - ARMOUR THYROID 120 mg tablet Take 1 tab daily EXCEPT WEDNESDAY TAKE NOTHING. - AJOVY AUTOINJECTOR 225 mg/1.5 mL auto-injector - ondansetron (ZOFRAN) 8 mg tablet Take 1 tablet by mouth every 8 hours as needed for nausea/vomiting. - multivit-min/vit C/herb no.124 (AIRBORNE GUMMY ORAL) Take by mouth. - lamoTRIgine (LAMICTAL) 100 mg tablet Take 100 mg by mouth twice daily. - SUMAtriptan 100 mg tablet Take 100 mg by mouth as needed. Take one tablet at onset of headache ,can repeat one time in 2 hours Facility-Administered Medications as of 11/26/2023 Medication Dose Route Frequency - lidocaine (PF) 10 mg/mL (1 %) 1-2 mg injection (XYLOCAINE) 0.1-0.2 mL INTRADERMAL PRN - NaCl 0.9% iv infusion 30 mL/hr INTRAVENOUS CONTINUOUS I have interviewed and examined the patient. I have reviewed the medical record and/or the pre-anesthesia evaluation, pertinent labs, and test results. This contains updated information obtained within 48 hours of Surgery/Procedure. SIGNATURE: Rina Flynn MD PATIENT NAME: Payal Dos Santos DATE: November 26, 2023 TIME: 2:45 PM CSN: [id number] [facility] Colonoscopyon 11-26-2023 Colonoscopy A31 Gastrointestinal Endoscopy Patient Name: Payal Dos Santos Procedure Date: 11/26/2023 2:34 PM Date of : 1975 Admit Type: Outpatient Age: 48 Room: [address] Gender: Female Note Status: Finalized Attending MD: Herman Jordan , , [phone] Procedure: Colonoscopy Indications: Screening for colorectal malignant neoplasm Providers: Herman Jordan Patient Profile: This is a 48 year old female. Refer to note in patient chart for documentation of history and physical. Last Colonoscopy: none. The patient's first colonoscopy is today. Referring Physician: Shona Barraza CNP (Referring MD) Medicines: Monitored Anesthesia Care Complications: No immediate complications. Requesting Provider: Procedure: Pre-Anesthesia Assessment: - Prior to the procedure, a History and Physical was performed, and patient medications and allergies were reviewed. The patient is competent. The risks and benefits of the procedure and the sedation options and risks were discussed with the patient. All questions were answered and informed consent was obtained. Patient identification and proposed procedure were verified by the physician, the nurse and the news photographer in the pre-procedure area in the endoscopy suite. Mental Status Examination: alert and oriented. Airway Examination: normal oropharyngeal airway and neck mobility. Respiratory Examination: clear to auscultation. CV Examination: normal. Prophylactic Antibiotics: The patient does not require prophylactic antibiotics. Prior Anticoagulants: The patient has taken no anticoagulant or antiplatelet agents. After reviewing the risks and benefits, the patient was deemed in satisfactory condition to undergo the procedure. The anesthesia plan was to use monitored anesthesia care (MAC). Immediately prior to administration of medications, the patient was re-assessed for adequacy to receive sedatives. The heart rate, respiratory rate, oxygen saturations, blood pressure, adequacy of pulmonary ventilation, and response to care were monitored throughout the procedure. The physical status of the patient was re-assessed after the procedure. After I obtained informed consent, the scope was passed under direct vision. Throughout the procedure, the patient's blood pressure, pulse, and oxygen saturations were monitored continuously. The Colonoscope was introduced through the anus and advanced to the terminal ileum. The colonoscopy was performed without difficulty. The patient tolerated the procedure well. The terminal ileum, ileocecal valve, appendiceal orifice, and rectum were photographed. The quality of the bowel preparation was excellent. Moderate Sedation: MAC anesthesia was administered by the anesthesia team. Findings: The perianal and digital rectal examinations were normal. Pertinent negatives include normal sphincter tone and no palpable rectal lesions. The transverse colon was moderately tortuous. External pressure was applied to the patient's abdomen. The terminal ileum appeared normal. A 4 mm, non-bleeding polyp was found in the descending colon. The polyp was sessile. The polyp was removed with a cold biopsy forceps. Resection and retrieval were complete. Verification of patient identification for the specimen was done by the physician and nurse using the patient's name and date. Two sessile, non-bleeding polyps were found in the sigmoid colon. The polyps were less than 5 mm in size. These polyps were removed with a piecemeal technique using a cold biopsy forceps. Resection and retrieval were complete. Verification of patient identification for the specimen was done by the physician and nurse using the patient's name and date. Estimated blood loss was minimal. Non-bleeding internal hemorrhoids were found during retroflexion. The hemorrhoids were Grade I (internal hemorrhoids that do not prolapse). The exam was otherwise without abnormality on direct and retroflexion views. Impression: - Tortuous colon. - The examined portion of the ileum was normal. - One 4 mm, non-bleeding polyp in the descending colon, removed with a cold biopsy forceps. Resected and retrieved. - Two less than 5 mm, non-bleeding polyps in the sigmoid colon, removed piecemeal using a cold biopsy forceps. Resected and retrieved. - Non-bleeding internal hemorrhoids. - The examination was otherwise normal on direct and retroflexion views. Estimated Blood Loss: Estimated blood loss was minimal. Recommendation: - Patient has a contact number available for emergencies. The signs and symptoms of potential delayed complications were discussed with the patient. Return to normal activities tomorrow. Written discharge instructions were provided to the patient. - Continue present medications. - Patient has a contact number available for emergencies. The signs and symptoms of potential delayed com (more content not included)... [facility] HISTORY PHYSICALon 4 HISTORY PHYSICAL HNO ID: [id number] Author: HERMAN JORDAN MD Service: General Surgery Author Type: Physician Type: H&P Filed: 11/26/2023 14:50 Note Text: ENDOSCOPY HISTORY AND PHYSICAL EXAM Payal Ocampo Neftali [id number] Subjective HPI: This is a 48 year old female who presents for endoscopy. She presents for age related screening colonoscopy Last colonoscopy was never + family history of colon and rectal cancer in father (neuroendocrine tumor) no family history of inflammatory bowel disease PAST ANESTHESIA HISTORY: PONV, delayed emergence PAST MEDICAL HISTORY Diagnosis Date Breast cancer (HCC) 02/2021 Delayed emergence from general anesthesia Epilepsy (HCC) 11/22/1997 Hypothyroidism 11/22/2006 PONV (postoperative nausea and vomiting) PAST SURGICAL HISTORY Procedure Laterality Date CYSTOSCOPY 05/26/2022 DR. VERONICA BURGESS [facility] MAMM STEREOTACTIC BREAST BIOPSY (HL,SP,MM) 05/20/2015 left breast MASTECTOMY HX 01/2021 bilateral PAST SURGICAL HISTORY OF breast biopsy PAST SURGICAL HISTORY OF 08/2019 [facility] [place] PAST SURGICAL HISTORY OF wisdom teeth extraction - once in high school, 2nd time 2011 PAST SURGICAL HISTORY OF 08/18/2021 breast reconstruction TOTAL ABDOM HYSTERECTOMY 2020 Prior to Admission medications as of 11/26/23 1438 Medication Sig Last Dose Taking anastrozole (ARIMIDEX) 1 mg tablet take 1 tablet once daily ARMOUR THYROID 120 mg tablet Take 1 tab daily EXCEPT WEDNESDAY TAKE NOTHING. AJOVY AUTOINJECTOR 225 mg/1.5 mL auto-injector ondansetron (ZOFRAN) 8 mg tablet Take 1 tablet by mouth every 8 hours as needed for nausea/vomiting. multivit-min/vit C/herb no.124 (AIRBORNE GUMMY ORAL) Take by mouth. lamoTRIgine (LAMICTAL) 100 mg tablet Take 100 mg by mouth twice daily. SUMAtriptan 100 mg tablet Take 100 mg by mouth as needed. Take one tablet at onset of headache ,can repeat one time in 2 hours ALLERGIES Allergen Reactions Compazine [Prochlor* Myalgia Erythromycin Base Vomiting Objective PHYSICAL EXAM: The remainder of the physical exam is noncontributory. AIRWAY: Airway Visualization of Uvula: Yes Mouth opening greater than 2 fingerbreadths: Yes Neck Full Range of Motion: Yes LUNGS: Lungs clear to auscultation CARDIAC: Regular rhythm,Regular rate Assessment/Plan ASA Class: Active Problems: * No active hospital problems. * Resolved Problems: * No resolved hospital problems. * Medication and Non-Pharmacologic VTE Prophylaxis/Anticoagula nts VTE Prophylaxis: not indicated for procedure Provisional Diagnosis/Treatment Plan: COLONOSCOPY: under MAC sedation Consent has been signed SEDATION GOAL: Anesthesia Herman Jordan MD 11/26/2023 2:50 PM [facility] NURSING PROGon 11-26-2023 NURSING PROG HNO ID: [id number] Author: ARELIS TOM RN Service: Nursing Author Type: Registered Nurse Type: Nursing Progress Note Filed: 11/26/2023 15:59 Note Text: AMBULATORY PATIENT EDUCATION NOTE TOPIC: GI PROCEDURES: Esophagogastroduodenosc opy(EGD) with or without biopies based on clinical findings, removal of polyps or lesions READINESS TO LEARN INSTRUCTION PROVIDED TO: Patient and family member COGNITIVE ABILITY: Alert and oriented PTED MOTIVATION TO LEARN: Interested FAMILY SUPPORT: High - Very involved in pt care IPATIENT LEARNS BEST BY: Individual Instruction FACTORS AFFECTING LEARNING: None PHYSICAL LIMITATIONS AFFECTING LEARNING: None LEARNING RESPONSE METHOD OF INSTRUCTION: Individual instruction PATIENT / FAMILY RESPONSE: Verbalizes understanding of: WORSENING CONDITION-Signs and symptoms of a worsening condition that warrant a call to the physician FOLLOW-UP PLAN: Patient instructed to call with any further issues SUPPLEMENTAL MATERIAL: Procedure Discharge Instructions REFERRAL (RECOMMENDATION): None Electronically Signed By: Arelis Ivy RN [facility] NURSING PROG HNO ID: [id number] Author: TERE RACHEL RN Service: ? Author Type: Registered Nurse Type: Nursing Progress Note Filed: 11/26/2023 14:31 Note Text: PRE OP LEARNING ASSESSMENT PROCEDURE/SURGERY: GI PROCEDURES: Colonoscopy READINESS TO LEARN COGNITIVE ABILITY: Alert and oriented MOTIVATION TO LEARN: Interested FAMILY SUPPORT: None - Unavailable/disinterest ed PATIENT LEARNS BEST BY: Individual Instruction FACTORS AFFECTING LEARNING: None PHYSICAL LIMITATIONS AFFECTING LEARNING: None Electronically Signed By: Tere Rachel RN In Department: GASTROENTEROLOGY [facility] SURGICAL PATHOLOGYon CASE REPORT [facility] Comment on above: Order Comment: Speci men Type: TISSUE SPECIMENOrdering Facility: [facility] Address: [address] [place] [address] Result Comment: Surg [facility] Pathology Report Case: [id number] Authorizing Provider: Herman Jordan MD Collected: 11/26/2023 03:37 PM Ordering Location: Gastroenterology Received: 11/26/2023 07:08 PM Pathologist: Amaod Palomo MD Specimens: A) - DESCENDING COLON POLYP, bottle a - r/o adenoma B) - SIGMOID COLON POLYP, bottle b - r/o adenoma Performed By: #### S ####[facility] LABCLIA [id number] [place] [address] [facility] LABCLIA [id number] [address] [place] FINAL DIAGNOSIS [facility] Comment on above: Order Comment: Speci men Type: TISSUE SPECIMENOrdering Facility: [facility] Address: [address] [place] [address] Result Comment: A. C olon, descending polyp, biopsy: - Hyperplastic polyp. B. Colon, sigmoid polyp, biopsy: - Tubular adenoma. Performed By: #### S ####[facility] LABCLIA [id number] [address] LABCLIA [id number] [address] [place] FINAL PERFORMING LAB Normal [facility] Comment on above: Order Comment: Speci men Type: TISSUE SPECIMENOrdering Facility: [facility] Address: [address] [place] [address] Result Comment: Diag nostic interpretation performed at [facility], [address] [place] [address] CLIA# [id number] Milk Pickup Truck Driver: Kiana Webb M.D. Performed By: #### S ####[facility] LABCLIA [id number] [address] LABCLIA [id number] [address] [place] GROSS DESCRIPTION Normal [facility] Comment on above: Order Comment: Speci men Type: TISSUE SPECIMENOrdering Facility: [facility] Address: [address] [place] [address] Result Comment: A. D ESCENDING COLON POLYP Received in formalin are two pieces of david, soft tissue aggregating to 1.1 x 0.2 x 0.2 cm. Totally submitted in one cassette. B. SIGMOID COLON POLYP Received in formalin are two pieces of david to david-pink, soft tissue aggregating to 0.9 x 0.3 x 0.2 cm. Totally submitted in one cassette. DB November 26, 2023 8:19 PM Gross examination performed at [facility], [address] [place] [address] Performed By: #### S ####[facility] LABCLIA [id number] [place] [id number] [facility] LABCLIA [id number] [id number] Mary 11-19-2023 CNPN Telephone (GAPRA3) PAYAL DOS SANTOS ([id number]) 1975 F Date Time Provider Department 11/19/23 ADALGISA ROSALES [facility] During your visit today, we recorded the following information about you: Adalgisa Rosales RN 11/19/2023 2:03 PM Signed GI Pre-Procedure Spoke with patient: Yes Confirmed date scheduled and patient report time: Yes Procedure Planned:Colonoscopy with or without biopsies based on clinical findings Is the patient on blood thinners?no Procedure Instructions given to patient: Yes, and they verbalized their understanding of instructions given Patient instructed to take prescribed preparation prior to procedure:Yes, and they verbalized their understanding of instructions given Patient instructed to have family/friend present for procedure transport home:Patient/patient call center representative was told that if they do not have a responsible adult accompany them to their procedure; and remain in the endoscopy area until they are discharged; that their procedure cannot be done with sedation or anesthesia and may be cancelled. Any barriers to Patient learning: Patient/Patient Corner Block Cutter responded appropriately on phone. Type of instruction given: Verbal by telephone contact. Adalgisa Rosales RN Allergies As of Date: 11/19/2023 Noted Allergy Reaction COMPAZINE (PROCHLORPERAZINE) 02/27/2021 17 - Myalgia ERYTHROMYCIN BASE 03/19/2021 11 - Vomiting Date Reviewed: 10/07/2023 Reviewed by: Stefan Randolph RN - Fully Assessed Reason for Visit: Appointment [186] Prescriptions as of 11/19/2023 - anastrozole (ARIMIDEX) 1 mg tablet take 1 tablet once daily - ARMOUR THYROID 120 mg tablet Take 1 tab daily EXCEPT WEDNESDAY TAKE NOTHING. - AJOVY AUTOINJECTOR 225 mg/1.5 mL auto-injector - ondansetron (ZOFRAN) 8 mg tablet Take 1 tablet by mouth every 8 hours as needed for nausea/vomiting. - multivit-min/vit C/herb no.124 (AIRBORNE GUMMY ORAL) Take by mouth. - lamoTRIgine (LAMICTAL) 100 mg tablet Take 100 mg by mouth twice daily. - SUMAtriptan 100 mg tablet Take 100 mg by mouth as needed. 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 Author Type: Nurse Practitioner Type: HANDP Filed: 10/28/2023 2:36 PM Note Text: DISTANCE HEALTH VISIT This Team Access Model visit is a virtual encounter. It required patient-provider interaction for the medical decision making as documented below. REASON FOR VISIT: Consult HPI: Payal Dos Santos is a 48 year old female who presents for colonoscopy consult. Patient denies GI complaints. No prior history of colonoscopy. Family history of colon cancer in her father.No prior abdominopelvic surgeries. Not currently on blood thinners. Past Clinical Work-Up: ALLERGIES Allergen Reactions Compazine [Prochlor* Myalgia Erythromycin Base Vomiting PAST MEDICAL HISTORY Diagnosis Date Breast cancer (HCC) 02/2021 Delayed emergence from general anesthesia Epilepsy (HCC) 11/22/1997 Hypothyroidism 11/22/2006 PONV (postoperative nausea and vomiting) PAST SURGICAL HISTORY Procedure Laterality Date CYSTOSCOPY 05/26/2022 DR. VERONICA BURGESS [facility] MAMM STEREOTACTIC BREAST BIOPSY (HL,SP,MM) 05/20/2015 left breast MASTECTOMY HX 01/2021 bilateral PAST SURGICAL HISTORY OF breast biopsy PAST SURGICAL HISTORY OF 08/2019 [facility] [place] PAST SURGICAL HISTORY OF wisdom teeth extraction - once in high school, 2nd time 2011 PAST SURGICAL HISTORY OF 08/18/2021 breast reconstruction TOTAL ABDOM HYSTERECTOMY 2020 FAMILY HISTORY Problem Relation Age of Onset Cancer Father rectal Colon Cancer Father 65 Prostate Cancer Maternal Grandfather Osteoporosis Maternal Grandmother other (heart attack) Paternal Grandfather 60 Ovarian cancer Paternal Grandmother Stroke Paternal Grandmother Anesthesia Problems No Family History Social History Tobacco Use Smoking status: Never Smokeless tobacco: Never Vaping Use Vaping Use: Never used Substance Use Topics Alcohol use: Yes Comment: Rarely Drug use: No Current Outpatient Medications Medication Sig ARMOUR THYROID 120 mg tablet Take 1 tab six days only, NOTHING ONE DAY of the week. anastrozole (ARIMIDEX) 1 mg tablet Take 1 tablet by mouth once daily. AJOVY AUTOINJECTOR 225 mg/1.5 mL auto-injector ondansetron (ZOFRAN) 8 mg tablet Take 1 tablet by mouth every 8 hours as needed for nausea/vomiting. multivit-min/vit C/herb no.124 (AIRBORNE GUMMY ORAL) Take by mouth. lamoTRIgine (LAMICTAL) 100 mg tablet Take 100 mg by mouth twice daily. SUMAtriptan 100 mg tablet Take 100 mg by mouth as needed. Take one tablet at onset of headache ,can repeat one time in 2 hours No current facility-administered medications for this visit. I have confirmed and edited, if necessary, the PFSH obtained by others. REVIEW OF SYSTEMS: GENERAL: No weight loss, malaise or fevers RESPIRATORY: Negative for cough, hemoptysis, wheezing, dyspnea or shortness of breath CARDIOVASCULAR: Negative for chest pain, leg swelling, or palpitations GI: See HPI PHYSICAL EXAM: General - Normal, healthy, cooperative, in no acute distress Able to interact verbally by video conference Psych - ORIENTATION: normal to time place, person and situation Mood/Affect: AFFECT AND MOOD: Normal Head/Neuro - Normal size and shape Facial appearance normal Pulmonary - respiratory effort normal Cardiovascular - patient describes extremities normal, warm, no cyanosis,no clubbing, and no edema Abdominal - Not performed Skin - abnormal lesions not visualized Motor - patient seen sitting with Normal appearing strength and coordination ASSESSMENT/PLAN: Ms. Dos Santos is a 48 year old female with a history of breast cancer, hypothyroidism, and family hx of colon cancer presents for colonoscopy consult. Patient denies GI complaints. No prior history of colonoscopy. Family history of colon cancer in her father.No prior abdominopelvic surgeries. Not currently on blood thinners. 1. Screening for colon cancer - ICD9: V76.51, ICD10: Z12.11 (primary diagnosis) - COLONOSCOPY SCREENING 2. Family history of colon cancer - ICD9: V16.0, ICD10: Z80.0 - COLONOSCOPY SCREENING I spent more than 30 minutes [id number] with the patient and over half the time was devoted to counseling and/or coordination of care. This note was dictated using [employer] speech recognition software and may contain some errors that were a result of the program not accurately transcribing what was dictated. I have communicated my name and active licensure. The patient's identity and physical location were verified at the time of this visit. Either the patient or their legal call center representative has been informed of the risks and benefits of -- and alternatives to -- treatment through a remote evaluation and consents to proceed with the evaluation remotely. Shona Barraza APRN.BLEACH RANGE OPERATOR Normal [facility] C peptide Erinn-Thalia 10-25 C peptide [Mass/Vol] 1.90 ng/mL Normal 0.81-3.85 [facility] Comment on above: Order Comment: Speci men Type: BLOOD SPECIMENOrdering Facility: [facility] Address: [address] [place] [address] Performed By: #### 1 986-9 ####[facility] LABGABBIE [id number] FRANK BUENO [id number] OF [facility] CNOVon 10-25-2023 CNOV Office Visit (STED) PAYAL DOS SANTOS ([id number]) 1975 F Date Time Provider Department 10/25/23 9:45 AM JESSICA CHINO During your visit today, we recorded the following information about you: Pulse Blood pressure Weight Height 91/minute 128/82 85.7 kg 1.803 m Jessica Chino, LOADERS.BLEACH RANGE OPERATOR 10/25/2023 10:01 AM Signed OFFICE VISIT PROGRESS NOTE CC Payal Ocampo Neftali is a 48 year old female who presents today for hypothyroid problem. HPI PATIENT OF DR MONTESINOS, ENDOCRINE Diagnosed with hypothyroid Last endocrine OV 04/09/2022 Some elements copied from my note 04/09/2022 which have been updated where appropriate, and all reflect current medical decision making from date of this visit. 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) HPI Reports weight gain from estrogen linnette from her breast cancer treatment Reports a 'abnormal noise' in her R ear Worried that this is related to her thyroid problem Walks for exercise, 5 times per week Resistance training 3 times per week Has gym in the basement Reports fell off the wagon due to holidays Usually eats very healthy diet other times Reports insomnia and joint aches Night sweats Had complete hyster 2020 Estrogen linnette started in 07/2021 Ongoing symptoms, just noticed more lately in the past several months CURRENT THYROID MEDS ARMOUR 120 mg 1 tab daily CURRENT LABS Component Latest Ref Rng AND Units 10/05/2022 10/06/2023 Glucose 74 - 99 mg/dL 117 (H) BUN 7 - 21 mg/dL 15 Creatinine 0.58 - 0.96 mg/dL 0.87 Sodium 136 - 144 mmol/L 139 Potassium 3.7 - 5.1 mmol/L 4.0 Chloride 97 - 105 mmol/L 100 CO2 22 - 30 mmol/L 26 Anion Gap 9 - 18 mmol/L 13 Calcium 8.5 - 10.2 mg/dL 9.7 eGFR >=60 mL/min/1.73mA? 82 Free T3 2.3 - 4.1 pg/mL 5.8 (H) 6.1 (H) Free T4 0.9 - 1.7 ng/dL 1.0 1.1 TSH 0.270 - 4.200 mIU/L 0.042 (L) 0.185 (L) Vitamin D 25 Hydroxy 31.0 - 80.0 ng/mL 42.1 PAST MEDICAL HISTORY Diagnosis Date Breast cancer (HCC) 02/2021 Delayed emergence from general anesthesia Epilepsy (HCC) 11/22/1997 Hypothyroidism 11/22/2006 PONV (postoperative nausea and vomiting) PAST SURGICAL HISTORY Procedure Laterality Date CYSTOSCOPY 05/26/2022 DR. VERONICA BURGESS [facility] MAMM STEREOTACTIC BREAST BIOPSY (HL,SP,MM) 05/20/2015 left breast MASTECTOMY HX 01/2021 bilateral PAST SURGICAL HISTORY OF breast biopsy PAST SURGICAL HISTORY OF 08/2019 [facility] PAST SURGICAL HISTORY OF wisdom teeth extraction - once in high school, 2nd time 2011 PAST SURGICAL HISTORY OF 08/18/2021 breast reconstruction TOTAL ABDOM HYSTERECTOMY 2020 FAMILY HISTORY Problem Relation Age of Onset Cancer Father rectal Colon Cancer Father 65 Prostate Cancer Maternal Grandfather Osteoporosis Maternal Grandmother other (heart attack) Paternal Grandfather 60 Ovarian cancer Paternal Grandmother Stroke Paternal Grandmother Anesthesia Problems No Family History Social History Tobacco Use Smoking status: Never Smokeless tobacco: Never Vaping Use Vaping Use: Never used Substance Use Topics Alcohol use: Yes Comment: Rarely Drug use: No Current Outpatient Medications Medication Sig ARMOUR THYROID 120 mg tablet Take 1 tablet by mouth once daily. anastrozole (ARIMIDEX) 1 mg tablet Take 1 tablet by mouth once daily. AJOVY AUTOINJECTOR 225 mg/1.5 mL auto-injector ondansetron (ZOFRAN) 8 mg tablet Take 1 tablet by mouth every 8 hours as needed for nausea/vomiting. multivit-min/vit C/herb no.124 (AIRBORNE GUMMY ORAL) Take by mouth. lamoTRIgine (LAMICTAL) 100 mg tablet Take 100 mg by mouth twice daily. SUMAtriptan 100 mg tablet Take 100 mg by mouth as needed. Take one tablet at onset of headache ,can repeat one time in 2 hours No current facility-administered medications for this visit. ALLERGIES Allergen Reactions Compazine [Prochlor* Myalgia Erythromycin Base Vomiting REVIEW OF SYSTEMS - POSITIVES IN BOLD GENERAL:No weight loss, malaise or fevers HEENT:Negative for frequent or significant headaches, No changes in hearing or vision, no nose bleeds or other nasal problems NECK:Negative for lumps, goiter, pain and significant neck swelling RESPIRATORY: Negative for cough, hemoptysis, wheezing, COPD, dyspnea or shortness of breath CARDIOVASCULAR: Negative for chest pain, leg swelling, hypertension, CHF or palpitations PHYSICAL EXAMINATION: BP 128/82 Pulse 91 Ht 180.3 cm (5' 11 ) Wt 85.7 kg (189 lb) LMP 04/14/2021 SpO2 100% BMI 26.36 kg/m? (more content not included)... Normal [facility] HbA1c (Bld)on 10-25-2023 Average glucose Estimated from glycated hemoglobin (Bld) [Mass/Vol] 114 mg/dL Normal [facility] Comment on above: Order Comment: Speci men Type: BLOOD SPECIMEN Ordering [facility]: [facility] Address: [address] [place] [address] Result Comment: eAG: (Estimated average glucose) is a calculated value from HgbA1c and is call center representative of the average blood glucose level in the last 2-3 month period. Performed By: #### 1 989-3 #### [facility] CLIA [id number] [place] HbA1c (Bld) [Mass fraction] 5.6 % Normal 4.3-5.6 [facility] Comment on above: Order Comment: Speci men Type: BLOOD SPECIMEN Ordering Facility: [facility] Address: [address] [place] [address] Result Comment: Amkirstie ican Diabetes Association guidelines indicate that patients with HgbA1c in the range 5.7-6.4% are at increased risk for development of diabetes, and intervention by lifestyle modification may be beneficial. HgbA1c greater or equal to 6.5% is considered diagnostic of diabetes. Performed By: #### 1 989-3 #### [facility] CLIA [id number] [address] [place] [address] [place] CBC W Auto Differential pane l (Bld)on 10-12-2023 Basophils (Bld) [#/Vol] 0.06 10*3/uL <0.11 k/uL [facility] Basophils/100 WBC (Bld) 1.1 % [facility] Differential cell count method Nom (Bld) Auto [facility] Eosinophils (Bld) [#/Vol] 0.07 10*3/uL <0.46 k/uL [facility] Eosinophils/100 WBC (Bld) 1.2 % [facility] Erythrocyte distribution width (RBC) [Ratio] 12.1 % 11.5 - 15.0 % [facility] Hematocrit (Bld) [Volume fraction] 40.2 % 36.0 - 46.0 % [facility] Hemoglobin (Bld) [Mass/Vol] 13.0 g/dL 11.5 - 15.5 g/dL [facility] Immature granulocytes (Bld) [#/Vol] <0.10 k/uL [facility] Immature granulocytes/100 WBC (Bld) 0.4 % [facility] Lymphocytes (Bld) [#/Vol] 2.42 10*3/uL 1.00 - 4.00 k/uL [facility] Lymphocytes/100 WBC (Bld) 42.4 % [facility] MCH (RBC) [Entitic mass] 29.3 pg 26.0 - 34.0 pg [facility] MCHC (RBC) [Mass/Vol] 32.3 g/dL 30.5 - 36.0 g/dL [facility] MCV (RBC) [Entitic vol] 90.5 fL 80.0 - 100.0 fL [facility] Monocytes (Bld) [#/Vol] 0.38 10*3/uL <0.87 k/uL [facility] Monocytes/100 WBC (Bld) 6.7 % [facility] Neutrophils (Bld) [#/Vol] 2.76 10*3/uL 1.45 - 7.50 k/uL [facility] Neutrophils/100 WBC (Bld) 48.2 % [facility] Nucleated RBC (Bld) [#/Vol] <0.01 k/uL [facility] Nucleated RBC/100 WBC (Bld) [Ratio] 0.0 /100 WBC [facility] Platelet mean volume (Bld) [Entitic vol] 9.1 fL 9.0 - 12.7 fL [facility] Platelets (Bld) [#/Vol] 343 10*3/uL 150 - 400 k/uL [facility] RBC (Bld) [#/Vol] 4.44 10*6/uL 3.90 - 5.2 0 m/uL [facility] WBC (Bld) [#/Vol] 5.71 10*3/uL 3.70 - 11. 00 k/uL [facility] Basophils (Bld) [#/Vol] 0.06 10*3/uL Normal <0.11 [facility] Comment on above: Order Comment: Speci men Type: BLOOD SPECIMENOrdering Facility: External Submitter Address: , , Performed By: #### 5 7021-8 ####[facility] LABCLIA [id number] [place] [id number] Basophils/100 WBC (Bld) 1.1 % Normal [facility] Comment on above: Order Comment: Speci men Type: BLOOD SPECIMENOrdering Facility: External Submitter Address: , , Performed By: #### 5 7021-8 ####[facility] LABCLIA [id number] [place] [address] Differential cell count method Nom (Bld) Auto Normal [facility] Comment on above: Order Comment: Speci men Type: BLOOD SPECIMENOrdering Facility: External Submitter Address: , , Performed By: #### 5 7021-8 ####[facility]CLIA [id number] [place] [address] Eosinophils (Bld) [#/Vol] 0.07 10*3/uL Normal <0.46 [facility] Comment on above: Order Comment: Speci men Type: BLOOD SPECIMENOrdering Facility: External Submitter Address: , , Performed By: #### 5 7021-8 ####[facility]CLIA [id number] [place] [address] Eosinophils/100 WBC (Bld) 1.2 % Normal [facility] Comment on above: Order Comment: Speci men Type: BLOOD SPECIMENOrdering Facility: External Submitter Address: , , Performed By: #### 5 7021-8 ####[facility]CLIA [id number] [place] [address] Erythrocyte distribution width (RBC) [Ratio] 12.1 % Normal 11.5-15.0 [facility] Comment on above: Order Comment: Speci men Type: BLOOD SPECIMENOrdering Facility: External Submitter Address: , , Performed By: #### 5 7021-8 ####[facility]CLIA [id number] [place] [address] Hematocrit (Bld) [Volume fraction] 40.2 % Normal 36.0-46.0 [facility] Comment on above: Order Comment: Speci men Type: BLOOD SPECIMENOrdering Facility: External Submitter Address: , , Performed By: #### 5 7021-8 ####[facility] LABIA [id number] [place] [address] Hemoglobin (Bld) [Mass/Vol] 13.0 g/dL Normal 11.5-15.5 [facility] Comment on above: Order Comment: Speci men Type: BLOOD SPECIMENOrdering Facility: External Submitter Address: , , Performed By: #### 5 7021-8 ####[facility]CLIA [id number] [place] [address] Immature granulocytes (Bld) [#/Vol] 10*3/uL Normal <0.10 [facility] Comment on above: Order Comment: Speci men Type: BLOOD SPECIMENOrdering Facility: External Submitter Address: , , Performed By: #### 5 7021-8 ####[facility]CLIA [id number] [place] [address] Immature granulocytes/100 WBC (Bld) 0.4 % Normal [facility] Comment on above: Order Comment: Speci men Type: BLOOD SPECIMENOrdering Facility: External Submitter Address: , , Performed By: #### 5 7021-8 ####[facility]CLIA [id number] [place] [address] Lymphocytes (Bld) [#/Vol] 2.42 10*3/uL Normal 1.00-4.00 [facility] Comment on above: Order Comment: Speci men Type: BLOOD SPECIMENOrdering Facility: External Submitter Address: , , Performed By: #### 5 7021-8 ####[facility] LABIA [id number] [place] [address] Lymphocytes/100 WBC (Bld) 42.4 % Normal [facility] Comment on above: Order Comment: Speci men Type: BLOOD SPECIMENOrdering Facility: External Submitter Address: , , Performed By: #### 5 7021-8 ####[facility] LABCLIA [id number] [place] [address] MCH (RBC) [Entitic mass] 29.3 pg Normal 26.0-34.0 [facility] Comment on above: Order Comment: Speci men Type: BLOOD SPECIMENOrdering Facility: External Submitter Address: , , Performed By: #### 5 7021-8 ####[facility] LABCLIA [id number] [place] [address] MCHC (RBC) [Mass/Vol] 32.3 g/dL Normal 30.5-36.0 [facility] Comment on above: Order Comment: Speci men Type: BLOOD SPECIMENOrdering Facility: External Submitter Address: , , Performed By: #### 5 7021-8 ####[facility] LABCLIA [id number] [place] [address] MCV (RBC) [Entitic vol] 90.5 fL Normal 80.0-100.0 [facility] Comment on above: Order Comment: Speci men Type: BLOOD SPECIMENOrdering Facility: External Submitter Address: , , Performed By: #### 5 7021-8 ####[facility] LABCLIA [id number] [place] [address] Monocytes (Bld) [#/Vol] 0.38 10*3/uL Normal <0.87 [facility] Comment on above: Order Comment: Speci men Type: BLOOD SPECIMENOrdering Facility: External Submitter Address: , , Performed By: #### 5 7021-8 ####[facility] LABCLIA [id number] [place] [address] Monocytes/100 WBC (Bld) 6.7 % Normal [facility] Comment on above: Order Comment: Speci men Type: BLOOD SPECIMENOrdering Facility: External Submitter Address: , , Performed By: #### 5 7021-8 ####[facility] LABCLIA [id number] [place] [address] Neutrophils (Bld) [#/Vol] 2.76 10*3/uL Normal 1.45-7.50 [facility] Comment on above: Order Comment: Speci men Type: BLOOD SPECIMENOrdering Facility: External Submitter Address: , , Performed By: #### 5 7021-8 ####[facility] LABIA [id number] [place] [address] Neutrophils/100 WBC (Bld) 48.2 % Normal [facility] Comment on above: Order Comment: Speci men Type: BLOOD SPECIMENOrdering Facility: External Submitter Address: , , Performed By: #### 5 7021-8 ####[facility] LABCLIA [id number] [place] [address] Nucleated RBC (Bld) [#/Vol] 10*3/uL Normal <0.01 [facility] Comment on above: Order Comment: Speci men Type: BLOOD SPECIMENOrdering Facility: External Submitter Address: , , Performed By: #### 5 7021-8 ####[facility] LABCLIA [id number] [place] [address] Nucleated RBC/100 WBC (Bld) [Ratio] 0.0 /100 WBC Normal [facility] Comment on above: Order Comment: Speci men Type: BLOOD SPECIMENOrdering Facility: External Submitter Address: , , Performed By: #### 5 7021-8 ####[facility] LABCLIA [id number] [place] [address] Platelet mean volume (Bld) [Entitic vol] 9.1 fL Normal 9.0-12.7 [facility] Comment on above: Order Comment: Speci men Type: BLOOD SPECIMENOrdering Facility: External Submitter Address: , , Performed By: #### 5 7021-8 ####[facility] LABCLIA [id number] [place] [address] Platelets (Bld) [#/Vol] 343 10*3/uL Normal 150-400 [facility] Comment on above: Order Comment: Speci men Type: BLOOD SPECIMENOrdering Facility: External Submitter Address: , , Performed By: #### 5 7021-8 ####[facility] LABCLIA [id number] [place] [address] RBC (Bld) [#/Vol] 4.44 10*6/uL Normal 3.90-5.20 [facility] Comment on above: Order Comment: Speci men Type: BLOOD SPECIMENOrdering Facility: External Submitter Address: , , Performed By: #### 5 7021-8 ####[facility] LABCLIA [id number] [place] [address] WBC (Bld) [#/Vol] 5.71 10*3/uL Normal 3.70-11.00 [facility] Comment on above: Order Comment: Speci men Type: BLOOD SPECIMENOrdering Facility: External Submitter Address: , , Performed By: #### 5 7021-8 ####[facility] LABCLIA [id number] [place] [address] Comprehensive metabolic 2000 panelon 10-12-2023 Albumin [Mass/Vol] 5.2 g/dL High 3.9 - 4.9 g/dL [facility] ALP [Catalytic activity/Vol] 102 U/L 34 - 123 U/L [facility] ALT [Catalytic activity/Vol] 13 U/L 7 - 38 U/L [facility] Anion gap [Moles/Vol] 9 mmol/L 9 - 18 mmol/L [facility] AST [Catalytic activity/Vol] 19 U/L 13 - 35 U/L [facility] Bilirubin [Mass/Vol] 0.4 mg/dL 0.2 - 1 .3 mg/dL [facility] Calcium [Mass/Vol] 9.8 mg/dL 8.5 - 10. 2 mg/dL [facility] Chloride [Moles/Vol] 101 mmol/L 97 - 10 5 mmol/L [facility] CO2 [Moles/Vol] 26 mmol/L 22 - 30 mmol/L [facility] Creatinine [Mass/Vol] 0.90 mg/dL 0.58 - 0.96 mg/dL [facility] Estimated Glomerular Filtration Rate 79 mL/min/1.73m >=60 mL/min/1.73m [facility] Glucose [Mass/Vol] 103 mg/dL High 74 - 99 mg/dL [facility] Potassium [Moles/Vol] 4.3 mmol/L 3.7 - 5.1 mmol/L [facility] Protein [Mass/Vol] 8.0 g/dL 6.3 - 8.0 g/dL [facility] Sodium [Moles/Vol] 136 mmol/L 136 - 144 mmol/L [facility] Urea nitrogen [Mass/Vol] 14 mg/dL 7 - 21 mg/dL [facility] Albumin [Mass/Vol] 5.2 g/dL High 3.9-4.9 [facility] Comment on above: Order Comment: Speci men Type: BLOOD SPECIMEN [facility]ing Facility[facility] Address: [address] [place] [address] Performed By: #### 1 989-3 #### [facility] CLIA [id number] [address] [place] [address] [place] ALP [Catalytic activity/Vol] 102 U/L Normal 34-123 [facility] Comment on above: Order Comment: Speci men Type: BLOOD SPECIMEN Ordering Facility: [facility] Address: [address] [place] [address] Performed By: #### 1 989-3 #### [facility] CLIA [id number] [address] [place] [address] [place] ALT [Catalytic activity/Vol] 13 U/L Normal 7-38 [facility] Comment on above: Order Comment: Speci men Type: BLOOD SPECIMEN Ordering Facility: [facility] Address: [address] [place] [address] Performed By: #### 1 989-3 #### [facility] CLIA [id number] [address] [place] [address] [place] Anion gap [Moles/Vol] 9 mmol/L Normal 9-18 [facility] Comment on above: Order Comment: Speci men Type: BLOOD SPECIMEN Ordering Facility: [facility] Address: [address] [place] [address] Performed By: #### 1 989-3 #### [facility] CLIA [id number] [address] [place] [address] [place] AST [Catalytic activity/Vol] 19 U/L Normal 13-35 [facility] Comment on above: Order Comment: Speci men Type: BLOOD SPECIMEN Ordering Facility: [facility] Address: [address] [place], [place] [address] Performed By: #### 1 989-3 #### [facility] CLIA [id number] [address] [place], [place] [id number] [place] Bilirubin [Mass/Vol] 0.4 mg/dL Normal 0.2-1.3 [facility] Comment on above: Order Comment: Speci men Type: BLOOD SPECIMEN Ordering Facility: [facility] Address: [address] [place] [address] Performed By: #### 1 989-3 #### [facility] CLIA [id number] [address] [place] [address] [place] Calcium [Mass/Vol] 9.8 mg/dL Normal 8.5-10.2 [facility] Comment on above: Order Comment: Speci men Type: BLOOD SPECIMEN Ordering Facility: [facility] Address: [address] [place] [address] Performed By: #### 1 989-3 #### [facility] CLIA [id number] [address] [place] [address] [place] Chloride [Moles/Vol] 101 mmol/L Normal 97-105 [facility] Comment on above: Order Comment: Speci men Type: BLOOD SPECIMEN Ordering Facility: [facility] Address: [address] [place] [address] Performed By: #### 1 989-3 #### [facility] CLIA [id number] [address] [place], [place] [address] [place] CO2 [Moles/Vol] 26 mmol/L Normal 22-30 [facility] Comment on above: Order Comment: Speci men Type: BLOOD SPECIMEN Ordering Facility: [facility] Address: [address] [place], [place] [address] Performed By: #### 1 989-3 #### [facility] CLIA [id number] [address] [place] [address] [place] Creatinine [Mass/Vol] 0.90 mg/dL Normal 0.58-0.96 [facility] Comment on above: Order Comment: [place] laws Type: BLOOD SPECIMEN Ordering Facility: [facility] Address: [address] [place] [address] Performed By: #### 1 989-3 #### [facility] CLIA [id number] [address] [place] [address] [place] Creatinine and Glomerular filtration rate.predicted panel (S/P/Bld) 79 mL/min/1.73m??? Normal >=60 [facility] Comment on above: Order Comment: [place] laws Type: BLOOD SPECIMEN Ordering Facility: [facility] Address: [address] [place] [address] Result Comment: Heidy mated Glomerular Filtration Rate (eGFR) is calculated using the 2020 CKD-EPI creatinine equation. This equation utilizes serum creatinine, sex, and age as parameters. The creatinine assay has traceable calibration to isotope dilution-mass spectrometry. Refer to KDIGO guidelines for clinical interpretation. In patients with unstable renal function, e.g. those with acute kidney injury, the eGFR may not accurately reflect actual GFR. Performed By: #### 1 989-3 #### [facility] CLIA [id number] [address] [place] [address] [place] Glucose [Mass/Vol] 103 mg/dL High 74-99 [facility] Comment on above: Order Comment: [place] laws Type: BLOOD SPECIMEN Ordering Facility: [facility] Address: [address] [place] [address] Result Comment: The [place] Diabetes Association (ADA) provides guidance for cutoff values for fasting glucose and random glucose. The ADA defines fasting as no caloric intake for at least 8 hours. Fasting plasma glucose results between 100 to 125 mg/dL indicate increased risk for diabetes (prediabetes). Fasting plasma glucose results greater than or equal to 126 mg/dL meet the criteria for diagnosis of diabetes. In the absence of unequivocal hyperglycemia, results should be confirmed by repeat testing. In a patient with classic symptoms of hyperglycemia or hyperglycemic crisis, random plasma glucose results greater than or equal to 200 mg/dL meet the criteria for diagnosis of diabetes. Reference: Standards of Medical Care in Diabetes 2016, [place] Diabetes Association. Diabetes Care. 2016.39(Suppl 1). Performed By: #### 1 989-3 #### [facility] CLIA [id number] [address] [place] [address] [place] Potassium [Moles/Vol] 4.3 mmol/L Normal 3.7-5.1 [facility] Comment on above: Order Comment: Speci men Type: BLOOD SPECIMEN Ordering Facility: [facility] Address: [address] [place] [address] Performed By: #### 1 989-3 #### [facility] CLIA [id number] [address] [place] [address] [place] Protein [Mass/Vol] 8.0 g/dL Normal 6.3-8.0 [facility] Comment on above: Order Comment: Speci men Type: BLOOD SPECIMEN Ordering Facility: [facility] Address: [address] [place] [address] Performed By: #### 1 989-3 #### [facility] CLIA [id number] [address] [place] [address] [place] Sodium [Moles/Vol] 136 mmol/L Normal 136-144 [facility] Comment on above: Order Comment: Speci men Type: BLOOD SPECIMEN Ordering Facility: [facility] Address: [address] [place] [address] Performed By: #### 1 989-3 #### [facility] CLIA [id number] [address] [place] [address] [place] Urea nitrogen [Mass/Vol] 14 mg/dL Normal 7-21 [facility] Comment on above: Order Comment: Speci men Type: BLOOD SPECIMEN Ordering Facility: [facility] Address: [address] [place] [address] Performed By: #### 1 989-3 #### [facility] CLIA [id number] [address] [place] [address] [place] LIPID PANEL, NONFASTINGon Cholesterol [Mass/Vol] 237 mg/dL High <200 mg/dL [facility] HDL Cholesterol, Nonfasting 88 mg/dL >39 mg/dL [facility] LDL Cholesterol, Nonfasting 135 mg/dL High <100 mg/dL [facility] LDL/HDL Ratio, Nonfasting 1.53 mg/dL <2.54 mg/dL [facility] Non HDL Cholesterol, Nonfasting 149 mg/dL High <130 mg/dL [facility] Total Chol/HDL Ratio, Nonfasting 2.69 mg/dL <5.10 mg/dL [facility] Triglycerides, Nonfasting 72 mg/dL <150 mg/dL [facility] VLDL Cholesterol, Nonfasting 14 mg/dL <30 mg/dL [facility] Cholesterol [Mass/Vol] 237 mg/dL High <200 [facility] Comment on above: Order Comment: Speci men Type: BLOOD SPECIMENOrdering Facility: External Submitter Address: , , Result Comment: <200 mg/dL, Desirable 200-239 mg/dL, Borderline high >239 mg/dL, High Performed By: #### L IPNF ####[facility] [id number] [place] [address] [place] HDL CHOLESTEROL, NF 88 mg/dL Normal >39 [facility] Comment on above: Order Comment: Speci men Type: BLOOD SPECIMENOrdering Facility: External Submitter Address: , , Result Comment: 40-5 9 mg/dL, Acceptable >59 mg/dL, High: Negative risk factor for coronary heart disease <40 mg/dL, Low: Positive risk factor for coronary heart disease Performed By: #### L IPNF ####[facility] [id number] [place] [address] [place] LDL CHOLESTEROL, NF 135 mg/dL High <100 [facility] Comment on above: Order Comment: Speci men Type: BLOOD SPECIMENOrdering Facility: External Submitter Address: , , Result Comment: <100 mg/dL, Optimal 100-129 mg/dL, Near optimal/above optimal 130-159 mg/dL, Borderline high 160-189 mg/dL, High >189 mg/dL, Very high Secondary prevention optimal LDL Cholesterol levels are recommended to be < 70 mg/dL Performed By: #### L IPNF ####[facility] [id number] [place] [address] [place] LDL/HDL RATIO, NF 1.53 mg/dL Normal <2.54 [facility] Comment on above: Order Comment: Muna laws Type: BLOOD SPECIMENOrdering Facility: External Submitter Address: , , Result Comment: Nichole matos: 1. National Cholesterol Education Program ATP III Guideline At-A-Glance Quick Desk Reference: National Heart, Lung, and Blood Herscher. National Institutes of Health. 2001: NIH Publication No. 01-3305. 2. An International Atherosclerosis Society position paper: global recommendations for the management of dyslipidemia: executive summary, Atherosclerosis. 2014: 232(2):410-413. Performed By: #### L IPNF ####[facility] [id number] [place] [address] [place] NON HDL CHOL, NF 149 mg/dL High <130 [facility] Comment on above: Order Comment: Muna laws Type: BLOOD SPECIMENOrdering Facility: External Submitter Address: , , Result Comment: <130 mg/dL, Optimal 130-159 mg/dL, Near optimal/above optimal 160-189 mg/dL, Borderline high 190-219 mg/dL, High >219 mg/dL, Very high Secondary prevention optimal non HDL Cholesterol levels are recommended to be <100 mg/dL Performed By: #### L IPNF ####[facility] [id number] [address] OF [facility] T CHOL/HDL RATIO NF 2.69 mg/dL Normal <5.10 [facility] Comment on above: Order Comment: Muna laws Type: BLOOD SPECIMENOrdering Facility: External Submitter Address: , , Performed By: #### L IPNF ####[facility]IA [id number] [address] [place] 72 mg/dL Normal <150 [facility] Comment on above: Order Comment: Speci men Type: BLOOD SPECIMENOrdering Facility: External Submitter Address: , , Result Comment: <150 mg/dL, Normal 150-199 mg/dL, Borderline high 200-499 mg/dL, High >499 mg/dL, Very high Performed By: #### L IPNF ####[facility]IA [id number] [address] [place] VLDL CHOLESTEROL, NF 14 mg/dL Normal <30 [facility] Comment on above: Order Comment: Speci men Type: BLOOD SPECIMENOrdering Facility: External Submitter Address: , , Performed By: #### L IPNF ####[facility] [id number] [address] STATES OF [facility] BD DXA - AXIAL SKELETONon BD DXA - AXIAL SKELETON * * *Final Report* * * DATE OF EXAM: Oct 07 2023 8:33AM [facility] [place] BD DXA - AXIAL SKELETON / PROCEDURE REASON: Aromatase inhibitor use * * * * Physician Interpretation * * * * EXAMINATION: DXA BONE DENSITOMETRY BD DXA - AXIAL SKELETON PATIENT DEMOGRAPHICS: Age: 48 years, Gender: Female SCANNER INFORMATION: DXA Model: A21 [employer] A [id number] Date Scanned: 10/07/2023 8:33 AM CLINICAL HISTORY: DIAGNOSTIC Aromatase inhibitor use . RISK FACTORS FOR OSTEOPOROSIS AND ASSOCIATED FRACTURES REPORTED BY THIS PATIENT: Please refer to Bone Health Questionnaire in the EMR CURRENT THERAPY: Please refer to Bone Health Questionnaire in the EMR TECHNICAL LIMITATIONS: Degenerative disease of the spine RESULTS: Lumbar spine (L1, L2, L3, L4): 1.194 g/cm2, T-score 1.3, Z-score 2.0 Lumbar spine: 2020: 1.150 g/cm2 Statistically significant increase Left Femoral Neck: 0.857 g/cm2, T-score 0.1, Z-score 0.7 Left Femoral Neck: 2020: 0.854 g/cm2 No statistically significant change Left Total Hip: 1.045 g/cm2, T-score 0.8, Z-score 1.3 Left Total Hip: 2020: 1.012 g/cm2 No statistically significant change CHANGE IS STATISTICALLY SIGNIFICANT IN THE SPINE OR HIP IF GREATER THAN OR EQUAL TO 0.04 g/cm2 VERTEBRAL FRACTURE ASSESSMENT Not performed. TRABECULAR BONE ASSESSMENT TBS score: 1.497 Bone micro-architecture: Normal (> 1.310) IMPRESSION: THE LOWEST T-SCORE IS 0.1 IN THE LEFT HIP 1) DIAGNOSIS (based on BMD alone): NORMAL BONE DENSITY - Caution: Medical conditions other than osteoporosis may cause low bone density, such as osteomalacia or renal osteodystrophy. Clinical correlation is necessary. 2) FRACTURE RISK (based on BMD and TBS) - LOW - Caution: Fracture risk may be increased independent of BMD in patients with corticosteroid use, age greater than 65 years, or a history of prior fragility fracture. - FRAX was not calculated: normal bone density RECOMMENDATIONS: Follow-up in 2 years or as clinically indicated. Patients that are taking corticosteroids, are transplant recipients or have hyperparathyroidism should have annual follow-up. Follow-up scans should always be done on the same machine for accurate comparison. FOR MORE INFORMATION ABOUT DIAGNOSIS AND TREATMENT: [facility] Osteoporosis and Metabolic Bone Disease:? www.ccf.org/arthritis/o steo National Osteoporosis Foundation:? www.nof.org International Society of Clinical Densitometry www.iscd.org Early Childhood Aide Classroom: J CARLOS Transcribe Date/Time: Oct 07 2023 9:36A Dictated by : CLINT CAPUTO MD This examination was interpreted and the report reviewed and electronically signed by: CLINT CAPUTO MD on Oct 07 2023 10:16AM EST [id number] 0.1 Normal [facility] CNOVSPon 10-07-2023 CNOVSP Visit (SP) Office (HEMCA4) PAYAL DOS SANTOS ([id number]) 1975 F Date Time Provider Department 10/07/23 9:30 AM PAULA TELLO During your visit today, we recorded the following information about you: Pulse Respiration Blood pressure Weight 86/minute 20/minute 138/78 85.6 kg Rayne Camarillo MA 10/07/2023 9:16 AM Signed Additional intake questions: Has the patient had fever, nausea, vomiting, diarrhea, constipation, fatigue for > 1 week? No Does the patient have a decreased appetite? No Does patient want to see a Seafood Preparer? No (yes to any of above refer patient to schedulers for dietitian appointment) ) Does patient have any new or increased numbness or tingling of extremities? No Is patient interested in fertility information? No Does patient need any prescription refills? No Does patient have an advanced directive in place? No Electronically Signed By: CARLA De Paz Machelle, APRN.[facility] 10/07/2023 12:51 PM Signed Some elements of all sections of this documentation were copied from my previous note of October 05, 2022 and have been re-examined and updated where appropriate. All elements reflect the current assessment and medical decision making of today, October 07, 2023. ATTENDING PHYSICIAN: Dr. Daphnie Barreto IDENTIFICATION: Payal Dos Santos is a 48 year old year old woman with a history of a bW2T2ysT7, ER positive (95%), IN positive (95%), Xjj7sws negatibe (IHC 1+) (oncotype dx recurrence score of 19), Infiltrating ductal carcinoma (grade 2) of the left breast, diagnosed in December 2020. REASON FOR VISIT / CHIEF COMPLAINT: Routine follow up for cancer care SURVIVORSHIP VISIT: September 25, 2021 CURRENT SYSTEMIC THERAPY FOR BREAST CANCER: ~ Anastrozole 1 mg daily ~ Zoledronic acid every 6 months (today, October 07, 2023 is cycle 5 of 6) PAST THERAPY FOR BREAST CANCER: Bilateral mastectomy with left sentinel node biopsy and machine plate stacker to implant reconstruction (Dr. Sigala / Dr. Rodarte; February 14, 2021, 3 cm , 1/2 nodes + with micromets) Docetaxel / Cyclophosphamide X4 (completed on June 03, 2021; received in [place]) EDWARD/BSO (June 2020) Anastrozole 1 mg daily (July 30, 2021 - September 25, 2021) Letrozole 2.5 mg daily (briefly, intolerant) Exemestane (briefly, cost was an issue) Anastrozole 1 mg daily (November 2021 - present, switched briefly to letrozole and then back again) Zoledronic acid (September 25, 2021 - present) INTERVAL HISTORY: Pt presents today by herself. She reports that she is taking her Anastrozole 1 mg daily as prescribed with minimal difficulty. Updates / Concerns noted at time of today's visit are as follows: 1) weight gain since diagnosis, finding it harder to take weight off, notes that she walks regularly but admits it is not an aggressive walk and isn't typically doing other exercises 2) chronic headaches, takes medications for the same, but denies any concerns regarding the same 3) right lower ribs hurt for 2 weeks, unchanged since presentation, denies any respiratory symptoms or trauma 4) continues with skin sensitivity with light touch, unchanged over time She otherwise reports that she physically feels well and is without any new concerns or discomforts that would be suggestive of recurrent or metastatic disease. She specifically denies any concerning nausea, vomiting, cough, shortness of breath, localized bone pain, headaches (no concerning) or diplopia. She reports that she is doing regular breast exams and denies any concerns related to the same. She also confirms that she does have a primary care provider (Sloan Sherman MD), which she verifies she is following up with regularly for her routine health maintenance. REVIEW OF SYSTEMS: The remainder of the review of systems is unremarkable. PERSONAL MEDICAL HISTORY: PAST MEDICAL HISTORY Diagnosis Date Breast cancer (HCC) 02/2021 Delayed emergence from general anesthesia Epilepsy (HCC) 11/22/1997 Hypothyroidism 11/22/2006 PONV (postoperative nausea and vomiting) PERSONAL SURGICAL HISTORY: PAST SURGICAL HISTORY Procedure Laterality Date CYSTOSCOPY 05/26/2022 DR. VERONICA BURGESS [facility] MAMM STEREOTACTIC BREAST BIOPSY (HL,SP,MM) 05/20/2015 left breast MASTECTOMY HX 01/2021 bilateral PAST SURGICAL HISTORY OF breast biopsy PAST SURGICAL HISTORY OF 08/2019 [facility] PAST SURGICAL HISTORY OF wisdom teeth extraction - once in high school, 2nd time 2011 PAST SURGICAL HISTORY OF 08/18/2021 breast reconstruction TOTAL ABDOM HYSTERECTOMY 2020 SIGNIFICANT (CANCER) FAMILY MEDICAL HISTORY: Father with colon cancer Paternal grandmother with ovarian cancer Maternal grandfather with prostate cancer Was a referral made to medical genetics? Breast Cancer STAT Panel with reflex to the Common Hereditary Cancers Panel through [facility] was n (more content not included)... Normal [facility] DXA-AXIAL SKELETONon 023 LOWEST T-SCORE 0.1 [facility] No Panel Informationon 10-07 [facility] XR RIB/CHST 3V AP RIB/OBL/CH ST Jake 10-07-2023 XR RIB/CHST 3V AP RIB/OBL/CHST R * * *Final Report* * * DATE OF EXAM: Oct 07 2023 12:06PM CAX [id number] - XR RIB/CHST 3V AP RIB/OBL/CHST R / PROCEDURE REASON: Rib pain on right side * * * * Physician Interpretation * * * * HISTORY: Rib pain on right side TECHNIQUE: Frontal radiograph of the chest and 3 views right RIBS COMPARISON: 06/11/2021 RESULT: Stable normal cardiomediastinal silhouette. There is no focal pulmonary consolidation. No pleural effusion . Osseous structures appear intact. No right rib fracture identified. IMPRESSION: NO ACUTE RADIOGRAPHIC ABNORMALITY Early Childhood Aide Classroom: PSCB Transcribe Date/Time: Oct 07 2023 12:40P Dictated by : LEILA LEIGH MD This examination was interpreted and the report reviewed and electronically signed by: LEILA LEIGH MD on Oct 07 2023 12:41PM EST [id number] Normal [facility] 25(OH)D3 [facility] 25-hydroxyvitamin D3 [Mass/Vol] 42.1 ng/mL Normal 31.0-80.0 [facility] Comment on above: Order Comment: Speci men Type: BLOOD SPECIMENOrdering Facility: [facility] Address: [facility] NINFAYAQUELIN[place] [address] Result Comment: Clas sification of 25 [place] Vitamin D status: Deficiency/Insufficiency: < or = 30 ng/ml. Sufficiency/Optimal Levels: 31-80 ng/mL Toxicity: > 100 ng/mL. Test performed by chemiluminescent immunoassay. Performed By: #### 1 989-3 ####[facility] [id number] NINFAJennifer [facility] [id number], [place] [address] [place] Basic metabolic 2000 panelon 10-06-2023 Anion gap [Moles/Vol] 13 mmol/L Normal 9-18 [facility] Comment on above: Order Comment: Speci men Type: BLOOD SPECIMENOrdering Facility: [facility] Address: [address] [place] [address] Performed By: #### 2 4321-2 ####[facility]IA [id number] [place] [address] Calcium [Mass/Vol] 9.7 mg/dL Normal 8.5-10.2 [facility] Comment on above: Order Comment: Speci men Type: BLOOD SPECIMENOrdering Facility: [facility] Address: [address] [place] [address] Performed By: #### 2 4321-2 ####[facility]CLIA [id number] [place] [address] Chloride [Moles/Vol] 100 mmol/L Normal 97-105 [facility] Comment on above: Order Comment: Speci men Type: BLOOD SPECIMENOrdering Facility: [facility] Address: [address] [place] [address] Performed By: #### 2 4321-2 ####[facility]CLIA [id number] [place] [address] CO2 [Moles/Vol] 26 mmol/L Normal 22-30 [facility] Comment on above: Order Comment: Speci men Type: BLOOD SPECIMENOrdering Facility: [facility] Address: [address] [place] [address] Performed By: #### 2 4321-2 ####[facility]CLIA [id number] [place] [address] Creatinine [Mass/Vol] 0.87 mg/dL Normal 0.58-0.96 [facility] Comment on above: Order Comment: Speci men Type: BLOOD SPECIMENOrdering Facility: [facility] Address: [address] [place] [address] Performed By: #### 2 4321-2 ####[facility]CLIA [id number] [place] [address] Creatinine and Glomerular filtration rate.predicted panel (S/P/Bld) 82 mL/min/1.73m??? Normal >=60 [facility] Comment on above: Order Comment: Muna men Type: BLOOD SPECIMENOrdering Facility: [facility] Address: [address] [place] [address] Result Comment: Heidy mated Glomerular Filtration Rate (eGFR) is calculated using the 2020 CKD-EPI creatinine equation. This equation utilizes serum creatinine, sex, and age as parameters. The creatinine assay has traceable calibration to isotope dilution-mass spectrometry. Refer to KDIGO guidelines for clinical interpretation. In patients with unstable renal function, e.g. those with acute kidney injury, the eGFR may not accurately reflect actual GFR. Performed By: #### 2 4321-2 ####[facility]CLIA [id number] [place] [address] Glucose [Mass/Vol] 117 mg/dL High 74-99 [facility] Comment on above: Order Comment: Muna laws Type: BLOOD SPECIMENOrdering Facility: [facility] Address: [address] [place] [address] Result Comment: The [place] Diabetes Association (ADA) provides guidance for cutoff values for fasting glucose and random glucose. The ADA defines fasting as no caloric intake for at least 8 hours. Fasting plasma glucose results between 100 to 125 mg/dL indicate increased risk for diabetes (prediabetes). Fasting plasma glucose results greater than or equal to 126 mg/dL meet the criteria for diagnosis of diabetes. In the absence of unequivocal hyperglycemia, results should be confirmed by repeat testing. In a patient with classic symptoms of hyperglycemia or hyperglycemic crisis, random plasma glucose results greater than or equal to 200 mg/dL meet the criteria for diagnosis of diabetes. Reference: Standards of Medical Care in Diabetes 2016, [place] Diabetes Association. Diabetes Care. 2016.39(Suppl 1). Performed By: #### 2 4321-2 ####[facility]CLIA [id number] [place] [address] Potassium [Moles/Vol] 4.0 mmol/L Normal 3.7-5.1 [facility] Comment on above: Order Comment: Speci men Type: BLOOD SPECIMENOrdering Facility: [facility] Address: [address] [place] [address] Performed By: #### 2 4321-2 ####[facility]CLIA [id number] [place] [address] Sodium [Moles/Vol] 139 mmol/L Normal 136-144 [facility] Comment on above: Order Comment: Speci men Type: BLOOD SPECIMENOrdering Facility: [facility] Address: [address] [place] [address] Performed By: #### 2 4321-2 ####[facility]CLIA [id number] [place] [address] Urea nitrogen [Mass/Vol] 15 mg/dL Normal 7-21 [facility] Comment on above: Order Comment: Speci men Type: BLOOD SPECIMENOrdering Facility: [facility] Address: [address] [place] [address] Performed By: #### 2 4321-2 ####[facility]CLIA [id number] [place] [address] T3Free SerPl-mCncon 10-06-20 23 Free T3 [Mass/Vol] 6.1 pg/mL High 2.3-4.1 [facility] Comment on above: Order Comment: Speci men Type: BLOOD SPECIMENOrdering Facility: [facility] Address: [address] [place] [address] Performed By: #### 3 024-7, 3051-0, 3016-3 ####[facility]CLIA [id number] [facility] [id number] [address] [place] T4 Free SerPl-mCncon 11-15-2 023 Free T4 [Mass/Vol] 1.1 ng/dL Normal 0.9-1.7 [facility] Comment on above: Order Comment: Muna laws Type: BLOOD SPECIMENOrdering Facility: [facility] Address: [address] [place] [address] Performed By: #### 3 024-7, 305-0, 3015-3 ####[facility] LABIA [id number] [address] [place] TSH SerPl-aCncon 10-06-2023 TSH Qn 0.185 m[IU]/L Low 0.270-4.200 [facility] Comment on above: Order Comment: Muna laws Type: BLOOD SPECIMENOrdering Facility: [facility] Address: [address] [place] [address] Result Comment: If t he patient is , TSH reference range varies by gestational period: First Trimester (weeks 9-12): 0.180-2.990 mIU/L Second Trimester: 0.110-3.980 mIU/L Third Trimester: 0.480-4.710 mIU/L Drew Carty et al. A Practical Approach for the Verifications and Determination of Site- and Trimester-Specific Reference Intervals for Thyroid Function tests in . Thyroid, 2019:29:3:412-420. Alberto Arellano, et al. 2017 Guidelines of the [place] Thyroid Association for the Diagnosis and Management of Thyroid Disease during and the . Thyroid, 2017:27:3:315-389. Performed By: #### 3 024-7, 3050-0, 3015-3 ####[facility] LABIA [id number] [place] [id number] [facility] [place] CNPMarilee 09-14-2023 CNPN Telephone (STEJennifer) PAYAL DOS [id number]) 1975 F Date Time Provider Department 09/14/23 JESSICA CHINO During your visit today, we recorded the following information about you: Estefany Kateryna Sussy 09/14/2023 8:41 AM Signed Patient calling asking if you could please put in lab orders for her upcoming appointment on 10/19/23. She already has an appointment to have lab work on 10/06/23 and would like to get it all done at the same time. Thank you Nola Liz RN 09/14/2023 9:18 AM Signed Pt is asking for labs to be done before her follow up in September for her Thyroid. Pt would like to get them done on 10/06/2023. Pended below, Please advise. Nola Liz RN 09/15/2023 1:54 PM Signed Updated pt that new lab orders are in for her to have done on/after 09/28/2023 for upcoming appt with provider. Allergies As of Date: 09/14/2023 Noted Allergy Reaction COMPAZINE (PROCHLORPERAZINE) 02/27/2021 17 - Myalgia ERYTHROMYCIN BASE 03/19/2021 11 - Vomiting Date Reviewed: 04/06/2023 Reviewed by: Nohemi Fitzpatrick, PARKER - Fully Assessed Reason for Visit: Lab Orders [1688] Primary Visit Diagnosis:Unspecified hypothyroidism [E03.9] Other Visit Diagnosis:Vitamin D deficiency [E55.9] Order(s):T3 FREE BLD [SQFREET3] Order #: [id number] FUTURE T4 FREE/FREE THYROX [SQFT4] Order #: [id number] FUTURE TSH BLD [SQTSH] Order #: [id number] FUTURE VITAMIN D 25 HYDROXY [SQVITD] Order #: [id number] FUTURE Prescriptions as of 09/15/2023 - ARMOUR THYROID 120 mg tablet Take 1 tablet by mouth once daily. - anastrozole (ARIMIDEX) 1 mg tablet Take 1 tablet by mouth once daily. - AJOVY AUTOINJECTOR 225 mg/1.5 mL auto-injector - ondansetron (ZOFRAN) 8 mg tablet Take 1 tablet by mouth every 8 hours as needed for nausea/vomiting. - multivit-min/vit C/herb no.124 (AIRBORNE GUMMY ORAL) Take by mouth. - lamoTRIgine (LAMICTAL) 100 mg tablet Take 100 mg by mouth twice daily. - SUMAtriptan 100 mg tablet Take 100 mg by mouth as needed. 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 2 mg/dL [facility] Chloride [Moles/Vol] 107 mmol/L High 97 - 10 5 mmol/L [facility] CO2 [Moles/Vol] 24 mmol/L 22 - 30 mmol/L [facility] Creatinine [Mass/Vol] 0.77 mg/dL 0.58 - 0.96 mg/dL [facility] Estimated Glomerular Filtration Rate 95 mL/min/1.73m >=60 mL/min/1.73m [facility] Glucose [Mass/Vol] 98 mg/dL 74 - 99 mg/dL [facility] Potassium [Moles/Vol] 4.4 mmol/L 3.7 - 5.1 mmol/L [facility] Sodium [Moles/Vol] 142 mmol/L 136 - 144 mmol/L [facility] Urea nitrogen [Mass/Vol] 12 mg/dL 7 - 21 mg/dL [facility] Basic metabolic 2000 panelon 10-05-2022 Anion gap [Moles/Vol] 10 mmol/L 9 - 18 mmol/L [facility] Calcium [Mass/Vol] 9.6 mg/dL 8.5 - 10. 2 mg/dL [facility] Chloride [Moles/Vol] 106 mmol/L High 97 - 10 5 mmol/L [facility] CO2 [Moles/Vol] 26 mmol/L 22 - 30 mmol/L [facility] Creatinine [Mass/Vol] 0.95 mg/dL 0.58 - 0.96 mg/dL [facility] Estimated Glomerular Filtration Rate 74 mL/min/1.73m >=60 mL/min/1.73m [facility] Glucose [Mass/Vol] 115 mg/dL High 74 - 99 mg/dL [facility] Potassium [Moles/Vol] 4.1 mmol/L 3.7 - 5.1 mmol/L [facility] Sodium [Moles/Vol] 142 mmol/L 136 - 144 mmol/L [facility] Urea nitrogen [Mass/Vol] 15 mg/dL 7 - 21 mg/dL [facility] CBC W Auto Differential pane l (Bld)on 10-05-2022 Basophils (Bld) [#/Vol] 0.04 10*3/uL <0.11 k/uL [facility] Basophils/100 WBC (Bld) 0.8 % [facility] Differential cell count method Nom (Bld) Auto [facility] Eosinophils (Bld) [#/Vol] 0.06 10*3/uL <0.46 k/uL [facility] Eosinophils/100 WBC (Bld) 1.1 % [facility] Erythrocyte distribution width (RBC) [Ratio] 11.8 % 11.5 - 15.0 % [facility] Hematocrit (Bld) [Volume fraction] 36.1 % 36.0 - 46.0 % [facility] Hemoglobin (Bld) [Mass/Vol] 12.1 g/dL 11.5 - 15.5 g/dL [facility] Immature granulocytes (Bld) [#/Vol] <0.10 k/uL [facility] Immature granulocytes/100 WBC (Bld) 0.2 % [facility] Lymphocytes (Bld) [#/Vol] 1.74 10*3/uL 1.00 - 4.00 k/uL [facility] Lymphocytes/100 WBC (Bld) 33.3 % [facility] MCH (RBC) [Entitic mass] 29.9 pg 26.0 - 34.0 pg [facility] MCHC (RBC) [Mass/Vol] 33.5 g/dL 30.5 - 36.0 g/dL [facility] MCV (RBC) [Entitic vol] 89.1 fL 80.0 - 100.0 fL [facility] Monocytes (Bld) [#/Vol] 0.36 10*3/uL <0.87 k/uL [facility] Monocytes/100 WBC (Bld) 6.9 % [facility] Neutrophils (Bld) [#/Vol] 3.02 10*3/uL 1.45 - 7.50 k/uL [facility] Neutrophils/100 WBC (Bld) 57.7 % [facility] Nucleated RBC (Bld) [#/Vol] <0.01 k/uL [facility] Nucleated RBC/100 WBC (Bld) [Ratio] 0.0 /100 WBC [facility] Platelet mean volume (Bld) [Entitic vol] 9.5 fL 9.0 - 12.7 fL [facility] Platelets (Bld) [#/Vol] 284 10*3/uL 150 - 400 k/uL [facility] RBC (Bld) [#/Vol] 4.05 10*6/uL 3.90 - 5.2 0 m/uL [facility] WBC (Bld) [#/Vol] 5.23 10*3/uL 3.70 - 11. 00 k/uL [facility] T3 FREE Don 10-05-2022 Free T3 [Mass/Vol] 5.8 pg/mL High 2.3 - 4.1 pg/mL [facility] T4 FREE/FREE THYROXon 2021 Free T4 [Mass/Vol] 1.0 ng/dL 0.9 - 1.7 ng/dL [facility] TSH Don 10-05-2022 TSH Qn 0.042 m[IU]/L Low 0.270 - 4.200 mIU/L [facility] US BREAST LTD LTon [facility] UA DIP, URINE (POC)on 2021 BILIRUBIN UA (POCT) Negative Negative [facility] CLARITY UA (POCT) [facility] COLOR UA (POCT) Light yellow [facility] GLUCOSE UA (POCT) Negative Negative mg/dL [facility] HEMOGLOBIN/BLOOD UA (POCT) Negative Negative [facility] KETONE UA (POCT) Negative Negative mg/dL [facility] LEUKOCYTES UA (POCT) Negative Negative [facility] NITRITE UA (POCT) Negative Negative [facility] PH UA (POCT) 7.0 4.5 - 8.0 [facility] Protein Ql (U) Negative Negative mg/dL [facility] SPECIFIC GRAVITY UA (POCT) 1.010 1.005 - 1.030 [facility] UROBILINOGEN UA (POCT) 0.2 E.U./dL Normal E.U./dL [facility] Urinalysis complete panel (U )on 04-01-2022 Bilirubin Ql (U) Negative Negative [facility] Clarity (Unsp spec) Clear Clear [facility] Color (U) Colorless Yellow [facility] Epithelial cells LM.HPF (Urine sed) [#/Area] Few Abnormal None Seen /HPF [facility] Glucose Test strip (U) [Mass/Vol] Negative Negative [facility] Hemoglobin Ql (U) Negative Negative [facility] Ketones Ql (U) Negative Negative [facility] Leukocyte esterase Test strip Ql (U) Negative Negative [facility] Nitrite Ql (U) Negative Negative [facility] pH (U) 7.0 [pH] 5.0 - 8.0 [facility] Protein (U) [Mass/Vol] Negative Negative [facility] RBC LM.HPF (Urine sed) [#/Area] 0-3 /HPF 0-3 /HPF [facility] Specific gravity (U) [Rel density] 1.005 1.005 - 1.030 [facility] Urobilinogen Ql (U) Negative Negative [facility] WBC LM.HPF (Urine sed) [#/Area] 0-5 /HPF 0-5 /HPF [facility] CULTURE URINEon 03-07-2022 CULTURE URINE Isolate 1 Escherichia coli >100,000 cfu/mL of ORGANISM 1 Escherichia coli ANTIBIOTIC M.I.C RX STATUS Ampicillin >=32 R F Ampicillin/Sulbactam 16 I F Piperacillin/Tazobactam <=4 S F Cefazolin <=4 S F Ceftazidime <=1 S F Ceftriaxone <=1 S F Ertapenem <=0.5 S F Imipenem <=0.25 S F Amikacin <=2 S F Gentamicin <=1 S F Tobramycin <=1 S F Ciprofloxacin >=4 R F Levofloxacin >=8 R F Nitrofurantoin <=16 S F Trimethoprim/Sulfametho xazole >=320 R F Normal [facility] Comment on above: Performed By: #### U RCX #### [facility] Laboratory [address] [place] [address] Dr. Melva Delgadillo HISTORY PHYSICALon HISTORY PHYSICAL HNO ID: [id number] Author: Reena Stoner PA-C Service: ? Author Type: Physician 3Rd Mate Type: HANDP Filed: 12/18/2021 8:48 AM Note Text: HISTORY AND PHYSICAL EXAMINATION SERVICE DATE: 12/18/2021 SERVICE TIME: 8:39 AM PRIMARY CARE PHYSICIAN: Sloan Sherman MD REASON FOR VISIT: Payal Dos Santos is a 46 year old female who is scheduled for bilateral FAT TISSUE GRAFT AUTOLOGOUS BREAST, HARVESTED BY DIRECT EXCISION and RECONSTRUCTION NIPPLE/AREOLA at the request of Dr. Cynthia Durán for consultation. My final recommendation will be communicated back to the requesting physician by way of shared medical record or letter. The patient has the following: ACTIVE PROBLEM LIST Abnormal Mammogram With Microcalcification Epilepsy (Hcc) Dense Breast Tissue On Mammogram Bilateral Fibrocystic Breast Changes Family History of Colon Cancer S/P Breast Biopsy, Left Pseudoangiomatous stromal hyperplasia of LEFT breast Invasive Ductal Carcinoma of Breast, Female, Left (Hcc) At Risk for Lymphedema Hypothyroidism Endometrial Hyperplasia Breast Asymmetry Following Reconstructive Surgery Subjective CHIEF COMPLAINT: Breast reconstruction HPI: Patient is a 46 year old female presenting for pre-anesthesia consultation. Patient diganosed with bilateral breast cancer in early 2020. She had bilateral mastectomy with chemo, last dose in 05/2021 and left axillary lymph nodes removed. She has had two reconstructions in the past. This will hopefully be the last one for her. Denies any pain, swelling, redness, nipple discharge, rashes, lesion, bumps. Recommended for the above surgery. PAST MEDICAL HISTORY Diagnosis Date - Breast cancer (HCC) 02/2021 - Delayed emergence from general anesthesia - Epilepsy (HCC) 11/22/1997 - Hypothyroidism 11/22/2006 - PONV (postoperative nausea and vomiting) PAST SURGICAL HISTORY Procedure Laterality Date - MAMM STEREOTACTIC BREAST BIOPSY (HL,SP,MM) 05/20/2015 left breast - MASTECTOMY HX 01/2021 bilateral - PAST SURGICAL HISTORY OF breast biopsy - PAST SURGICAL HISTORY OF 08/2019 [facility] - PAST SURGICAL HISTORY OF wisdom teeth extraction - once in high school, 2nd time 2011 - PAST SURGICAL HISTORY OF 08/18/2021 breast reconstruction - TOTAL ABDOM HYSTERECTOMY 2020 FAMILY HISTORY Problem Relation Age of Onset - Cancer Father rectal - Colon Cancer Father 65 - Prostate Cancer Maternal Grandfather - Osteoporosis Maternal Grandmother - other (heart attack) Paternal Grandfather 60 - Ovarian cancer Paternal Grandmother - Stroke Paternal Grandmother - Anesthesia Problems No Family History SOCIAL HISTORY: Social History Tobacco Use - Smoking status: Never Smoker - Smokeless tobacco: Never Used Vaping Use - Vaping Use: Never used Substance Use Topics - Alcohol use: Yes Comment: Rarely - Drug use: No Prior to Admission medications as of 12/18/21 0812 Medication Sig Last Dose Taking anastrozole (ARIMIDEX) 1 mg tablet Take 1 mg by mouth once daily. Taking Yes MAGNESIUM CARBONATE ORAL Take by mouth. Taking Yes glucosamine HCl/chondroitin olivarez (GLUCOSAMINE-CHONDROITI N ORAL) Take by mouth. Taking Yes BIOTIN ORAL Take by mouth. Taking Yes multivit-min/vit C/herb no.124 (AIRBORNE GUMMY ORAL) Take by mouth. Taking Yes ARMOUR THYROID 120 mg tablet Take 1 tablet by mouth once daily. Taking Yes pyridoxine, vitamin B6, (VITAMIN B-6) 100 mg tablet Take 100 mg by mouth once daily. Taking Yes cholecalciferol (VITAMIN D) 1,000 unit tab tablet Take 1,000 Units by mouth once daily. Taking Yes lamoTRIgine (LAMICTAL) 100 mg tablet Take 100 mg by mouth twice daily. Taking Yes SUMAtriptan 100 mg tablet Take 100 mg by mouth as needed. Take one tablet at onset of headache ,can repeat one time in 2 hours Taking Yes No medication comments found. ALLERGIES Allergen Reactions - Compazine [Prochlor* Myalgia - Erythromycin Base Vomiting COVID VACCINATION STATUS: Fully vaccinated REVIEW OF SYSTEMS: PAIN ASSESSMENT: General: No weight loss, malaise or fevers. Neuro:+epilepsy last seizure 2001 on lamotrigine. No history of TIA's, stroke, [employer] tumor, impaired sensorium, hemiplegia, paraplegia or quadraplegia. No neurological symptoms or problems., Negative for TIA's Headaches Respiratory: No history of current cough or dyspnea, or pneumonia in the past 6 weeks. No history of respiratory/pulmonary symptoms or problems. Cardiovascular: No history of HTN requiring medication, no history of angina, CHF, CA, cardiac surgery or stents. Denies rest pain, gangrene or revascularization/amput ation for PVD. No history of cardiovascular symptoms or problems. GI: No history of GI symptoms or problems. No history of esophageal varices, recent ascites, or ETOH greater than 2 drinks per day. : No history of dysuria, frequency or incontinence,, stones or chronic kidn (more content not included)... Normal [facility] Vital Signs Date Time Vital Sign Value Performing Clinician Facility 07-03-2024 08:01-0400 Diastolic blood pressure 76 mm[Hg] Reena Senior PA-C Work Phone: [facility] 07-03-2024 08:01-0400 Systolic blood pressure 126 mm[Hg] Reena Senior PA-C Work Phone: [facility] 04-06-2024 09:10-0400 Body mass index (BMI) [Ratio] 25.63 kg/m2 Daphnie Barreto MD Work Phone: [facility] 04-06-2024 09:10-0400 Body temperature 97.3 [degF] Daphnie Barreto MD Work Phone: [facility] 04-06-2024 09:10-0400 Body weight 83.37 kg Daphnie Barreto MD Work Phone: [facility] Comment on above: with shoes 04-06-2024 09:10-0400 Diastolic blood pressure 65 mm[Hg] Daphnie Barreto MD Work Phone: [facility] 04-06-2024 09:10-0400 Heart rate 82 /min Daphnie Barreto MD Work Phone: [facility] 04-06-2024 09:10-0400 Respiratory rate 18 /min Daphnie Barreto MD Work Phone: [facility] 04-06-2024 09:10-0400 SaO2% (BldA) [Mass fraction] 100 % Daphnie Barreto MD Work Phone: [facility] Comment on above: ra 04-06-2024 09:10-0400 Systolic blood pressure 119 mm[Hg] Daphnie Barreto MD Work Phone: [facility] 02-03-2024 14:10-0400 Body height 180.34 cm [facility] 02-03-2024 14:10-0400 Body mass index (BMI) [Ratio] 25.5 kg/m2 [facility] 02-03-2024 14:10-0400 Body weight 83.12 kg [facility] 02-03-2024 14:10-0400 Diastolic blood pressure 80 mm[Hg] [facility] 02-03-2024 14:10-0400 Heart rate 76 /min [facility] 02-03-2024 14:10-0400 Systolic blood pressure 121 mm[Hg] [facility] 01-30-2024 13:42-0400 Body height 180.34 cm [facility] 01-30-2024 13:42-0400 Body mass index (BMI) [Ratio] 26.6 kg/m2 [facility] 01-30-2024 13:42-0400 Body temperature 98.7 [degF] [facility] 01-30-2024 13:42-0400 Body weight 86.63 kg [facility] 01-30-2024 13:42-0400 Heart rate 80 /min [facility] 01-30-2024 13:42-0400 Respiratory rate 18 /min [facility] 01-30-2024 13:42-0400 SaO2% (BldA) [Mass fraction] 99 % [facility] 01-19-2024 10:59-0500 Body height 177.8 cm [facility] 01-19-2024 10:59-0500 Body mass index (BMI) [Ratio] 27 kg/m2 [facility] 01-19-2024 10:59-0500 Body weight 85.44 kg [facility] 01-19-2024 10:59-0500 Diastolic blood pressure 83 mm[Hg] [facility] 01-19-2024 10:59-0500 Heart rate 80 /min [facility] 01-19-2024 10:59-0500 Systolic blood pressure 123 mm[Hg] [facility] 10-07-2023 09:16-0500 Body weight 85.64 kg Paula Elisha [employer]ADERS[employer] OPERATOR Work Phone: [facility] 10-07-2023 09:16-0500 Diastolic blood pressure 78 mm[Hg] Paula Elisha [employer]AD[employer]BLE[employer] RANGE OPERATOR Work Phone: [facility] 10-07-2023 09:16-0500 Heart rate 86 /min Paula Elisha [employer]ADERS.BLEACH RANGE OPERATOR Work Phone: [facility] 10-07-2023 09:16-0500 Respiratory rate 20 /min Paula Elisha [employer]ADERS.BLEACH RANGE OPERATOR Work Phone: [facility] 10-07-2023 09:16-0500 SaO2% (BldA) [Mass fraction] 98 % Paula Elisha [employer]ADERS.[employer]ACH RANGE OPERATOR Work Phone: [facility] 10-07-2023 09:16-0500 Systolic blood pressure 138 mm[Hg] Paula Elisha LOADERS.BLEACH RANGE OPERATOR Work Phone: [facility] 09-27-2023 11:30-0500 Body height 177.8 cm Sloan Sherman Other [employer] Other 09-27-2023 11:30-0500 Body mass index (BMI) [Ratio] 27.12 kg/m2 Sloan Sherman Other [employer] Other 09-27-2023 11:30-0500 Body weight 85.73 kg Sloan Sherman Other [employer] Other 09-27-2023 11:30-0500 Diastolic blood pressure 76 mm[Hg] Sloan Sherman Other [employer] Other 09-27-2023 11:30-0500 Systolic blood pressure 130 mm[Hg] Sloan Sherman Other [employer] Other 09-08-2023 10:45-0400 Body height 177.8 cm Sloan Sherman Other [employer] Other 09-08-2023 10:45-0400 Body mass index (BMI) [Ratio] 26.94 kg/m2 Sloan Sherman Other [employer] Other 09-08-2023 10:45-0400 Body temperature 97.7 [degF] Sloan Sherman Other [employer] Other 09-08-2023 10:45-0400 Body weight 85.19 kg Sloan Sherman Other [employer] Other 09-08-2023 10:45-0400 Diastolic blood pressure 81 mm[Hg] Sloan Sherman Other [employer] Other 09-08-2023 10:45-0400 Systolic blood pressure 121 mm[Hg] Sloan Sherman Other [employer] Other 10-05-2022 14:31-0500 Body height 180.6 cm Paula Tello APRN.[facility] Work Phone: [facility] 10-05-2022 14:31-0500 Body temperature 98.1 [degF] Paula Elisha [employer]ADERS.BLEACH RANGE OPERATOR Work Phone: [facility] 10-05-2022 14:31-0500 Body weight 85.55 kg Paula Elisha LOADERS.BLEACH RANGE OPERATOR Work Phone: [facility] 10-05-2022 14:31-0500 Diastolic blood pressure 75 mm[Hg] Paula Elisha [employer]ADERS.BLEACH RANGE OPERATOR Work Phone: [facility] 10-05-2022 14:31-0500 Heart rate 73 /min Paula Elisha LOADERS.BLEACH RANGE OPERATOR Work Phone: [facility] 10-05-2022 14:31-0500 Respiratory rate 16 /min Paula Elisha LOADERS.BLEACH RANGE OPERATOR Work Phone: [facility] 10-05-2022 14:31-0500 SaO2% (BldA) [Mass fraction] 100 % Paula Elisha LOADERS.BLEACH RANGE OPERATOR Work Phone: [facility] 10-05-2022 14:31-0500 Systolic blood pressure 116 mm[Hg] Paula Elisha LOADERS.BLEACH RANGE OPERATOR Work Phone: [facility] 07-31-2022 09:17-0400 Body temperature 98.29 [degF] Roxana Hoang LOADERS.BLEACH RANGE OPERATOR Work Phone: [facility] 07-31-2022 09:17-0400 Diastolic blood pressure 77 mm[Hg] Roxana Hoang LOADERS.BLEACH RANGE OPERATOR Work Phone: [facility] 07-31-2022 09:17-0400 Heart rate 73 /min Roxana Chenerson [employer]ADERS.BLEACH RANGE OPERATOR Work Phone: [facility] 07-31-2022 09:17-0400 Respiratory rate 18 /min Roxana Hoang LOADERS.BLEACH RANGE OPERATOR Work Phone: [facility] 07-31-2022 09:17-0400 SaO2% (BldA) [Mass fraction] 100 % Roxana Hoang LOADERS.BLEACH RANGE OPERATOR Work Phone: [facility] 07-31-2022 09:17-0400 Systolic blood pressure 125 mm[Hg] Roxana Chenerson LOADERS.BLEACH RANGE OPERATOR Work Phone: [facility] 07-14-2022 16:27-0400 Body temperature 98.71 [degF] Daphnie Barreto MD Work Phone: [facility] 07-14-2022 16:27-0400 Body weight 85.05 kg Daphnie Barreto MD Work Phone: [facility] 07-14-2022 16:27-0400 Diastolic blood pressure 73 mm[Hg] Daphnie Barreto MD Work Phone: [facility] 07-14-2022 16:27-0400 Heart rate 78 /min Daphnie Barreto MD Work Phone: [facility] 07-14-2022 16:27-0400 Respiratory rate 18 /min Daphnie Barreto MD Work Phone: [facility] 07-14-2022 16:27-0400 SaO2% (BldA) [Mass fraction] 100 % Daphnie Barreto MD Work Phone: [facility] 07-14-2022 16:27-0400 Systolic blood pressure 125 mm[Hg] Daphnie Barreto MD Work Phone: [facility] 05-26-2022 15:38-0400 Body temperature 97.81 [degF] Veronica Anand MD Work Phone: [facility] 05-26-2022 15:38-0400 Body weight 86.18 kg Veronica Anand MD Work Phone: [facility] 05-26-2022 15:38-0400 Diastolic blood pressure 84 mm[Hg] Veronica Anand MD Work Phone: [facility] 05-26-2022 15:38-0400 Heart rate 101 /min Veronica Anand MD Work Phone: [facility] 05-26-2022 15:38-0400 Systolic blood pressure 120 mm[Hg] Veronica Anand MD Work Phone: [facility] 05-05-2022 14:35-0400 Body temperature 97.7 [degF] Reena Rosanna PA-C Work Phone: [facility] 05-05-2022 14:35-0400 Diastolic blood pressure 67 mm[Hg] Reena Rosanna PA-C Work Phone: [facility] 05-05-2022 14:35-0400 Heart rate 80 /min Reena Rosanna PA-C Work Phone: [facility] 05-05-2022 14:35-0400 SaO2% (BldA) [Mass fraction] 97 % Reena Rosanna PA-C Work Phone: [facility] 05-05-2022 14:35-0400 Systolic blood pressure 120 mm[Hg] Reena Rosanna PA-C Work Phone: [facility] 04-01-2022 13:06-0400 Body temperature 97.39 [degF] Reena Rosanna PA-C Work Phone: [facility] 04-01-2022 13:06-0400 Diastolic blood pressure 77 mm[Hg] Reena Rosanna PA-C Work Phone: [facility] 04-01-2022 13:06-0400 Heart rate 85 /min Reena Rosanna PA-C Work Phone: [facility] 04-01-2022 13:06-0400 Systolic blood pressure 126 mm[Hg] Reena Rosanna PA-C Work Phone: [facility] 04-01-2022 09:41-0400 Body temperature 98.29 [degF] Paula Tello LOADERS.BLEACH RANGE OPERATOR Work Phone: [facility] 04-01-2022 09:41-0400 Body weight 85.23 kg Paula Tello LOADERS.BLEACH RANGE OPERATOR Work Phone: [facility] 04-01-2022 09:41-0400 Diastolic blood pressure 80 mm[Hg] Paula Tello LOADERS.BLEACH RANGE OPERATOR Work Phone: [facility] 04-01-2022 09:41-0400 Heart rate 73 /min Paula Elisha [employer]ADERS.BLEACH RANGE OPERATOR Work Phone: [facility] 04-01-2022 09:41-0400 Respiratory rate 20 /min Paula De La Cruzeller LOADERS.BLEACH RANGE OPERATOR Work Phone: [facility] 04-01-2022 09:41-0400 SaO2% (BldA) [Mass fraction] 100 % Paula Elisha LOADERS.BLEACH RANGE OPERATOR Work Phone: [facility] 04-01-2022 09:41-0400 Systolic blood pressure 136 mm[Hg] Paula De La Cruzeller LOADERS.BLEACH RANGE OPERATOR Work Phone: [facility] Encounters Encounter Date Encounter Type Care Provider Facility Start: 08-01-2024 End: 08-01-2024 Admission to same day surgery center Reena Senior PA-C Work Phone: Plastic Surgery Comment on above: Breast asymmetry fol lowing reconstructive surgery (Primary Dx); S/P breast reconstruction; Personal history of malignant neoplasm of breast Start: 08-01-2024 End: 08-01-2024 ambulatory SLOAN SHERMAN Facility:[facility] Start: 08-01-2024 End: 08-01-2024 Telemedicine consultation with patient Reena Luz NI Work Phone: Plastic Surgery Start: 07-03-2024 End: 07-03-2024 ambulatory SLOAN SHERMAN Facility:[facility] Start: 07-03-2024 End: 07-03-2024 Patient encounter procedure Reena Senior PA-C Work Phone: Plastic Surgery Comment on above: Breast asymmetry fol lowing reconstructive surgery (Primary Dx) Start: 06-19-2024 End: 06-19-2024 ambulatory Jessica Chino APRN.[employer] R[employer] OPERATOR Work Phone: Endocrinology Comment on above: Thyroid Labs Start: 06-15-2024 End: 06-15-2024 Telemedicine consultation with patient Jessica Chino APRN.[employer] OPERATOR Work Phone: Endocrinology Start: 06-15-2024 End: 06-15-2024 ambulatory Jessica Juarezwaleskamaicol LOADERS.BLEACH RANGE OPERATOR Work Phone: Endocrinology Comment on above: Unspecified hypothyr oidism (Primary Dx); Vitamin D deficiency; Hypothyroidism, unspecified type Start: 05-04-2024 Get Medical Advice Daphnie dawn MD Work Phone: Hematology/Oncology Comment on above: Bloodwork Orders for September Start: 04-06-2024 Chart abstracting Cynthia mc MD Work Phone: Plastic Surgery Comment on above: PHOTOS TAKEN Start: 04-06-2024 End: 04-06-2024 ambulatory Daphnie Barreto MD Work Phone: Hematology/Oncology Comment on above: Malignant neoplasm o f left breast in female, estrogen receptor positive, unspecified site of breast (HCC) (Primary Dx) Invasive ductal carc inoma of breast, female, left (HCC) (Primary Dx) Start: 04-06-2024 End: 04-06-2024 Patient encounter procedure Daphnie Barreto MD Work Phone: Hematology/Oncology Comment on above: Breast asymmetry [facility] [place] breast and reconstructed breast (Primary Dx); Breast asymmetry following reconstructive surgery; S/P breast reconstruction; Personal history of malignant neoplasm of breast Start: 04-05-2024 End: 04-05-2024 ambulatory SLOAN SHERMAN Facility:[facility] Start: 03-07-2024 End: 03-07-2024 ambulatory FABIAAN LAMB Not Available Start: 02-03-2024 End: 02-03-2024 ambulatory [facility] Work Phone: Start: 02-03-2024 End: 02-03-2024 Patient encounter procedure [facility] Work Phone: Start: 01-30-2024 End: 01-30-2024 Patient encounter procedure [facility] Work Phone: Start: 01-19-2024 End: 01-19-2024 Patient encounter procedure [facility] Work Phone: Start: 12-06-2023 End: 12-06-2023 ambulatory SLOAN SHERMAN Facility:[facility] Start: 11-26-2023 End: 11-26-2023 ambulatory SLOAN SHERMAN Facility:[facility] Start: 10-29-2023 End: 10-29-2023 ambulatory Sloan Sherman Other [employer] Other Start: 10-29-2023 Telephone encounter Sloan Sherman [facility] Start: 10-28-2023 End: 10-28-2023 ambulatory Shona Barraza LOADERS.BLEACH RANGE OPERATOR Work Phone: Gastroenterology Comment on above: Screening for colon cancer (Primary Dx); Family history of colon cancer Start: 10-28-2023 End: 10-28-2023 Telemedicine consultation with patient Shona Barraza APRN.BLEACH RANGE OPERATOR Work Phone: [facility] Start: 10-27-2023 End: 10-27-2023 ambulatory Sloan Sherman Other [employer] Other Start: 10-27-2023 Telephone encounter Sloan Sherman [facility] Start: 10-25-2023 Telephone encounter Sloan Sherman [facility] Start: 10-25-2023 End: 10-25-2023 ambulatory SLOAN SHERMAN [facility] [employer] Other Start: 10-20-2023 End: 10-20-2023 ambulatory ERICK PEDRO [facility] [employer] Other Start: 10-20-2023 Telephone encounter Sloan Sherman [facility] Start: 10-12-2023 End: 10-12-2023 Orders Only Sloan Sherman MD Work Phone: Hematology/Oncology Comment on above: Routine general medi marbin examination at a health care facility (Primary Dx) Bloodwork Results Start: 10-12-2023 Patient encounter status Sloan Sherman MD Work Phone: [facility] Start: 10-07-2023 End: 10-07-2023 ambulatory SLOAN SHERMAN Facility:[facility] Start: 10-07-2023 End: 10-07-2023 Subsequent hospital visit by physician Xr Main Ca LLD Work Phone: Radiology Comment on above: Rib pain on right si de [R07.81] Start: 10-07-2023 End: 10-08-2023 ambulatory Chair 7 East Ca 4 Work Phone: Hematology/Oncology Comment on above: Invasive ductal carc inoma of breast, female, left (HCC) (Primary Dx) Start: 10-07-2023 End: 10-07-2023 Follow-up encounter Paula Tello APRN.CNP Work Phone: Hematology/Oncology Comment on above: Encounter for routin e cancer follow-up (Primary Dx); Rib pain on right side; Malignant neoplasm of left breast in female, estrogen receptor positive, unspecified site of breast (HCC) ; Aromatase inhibitor use Start: 10-07-2023 End: 10-07-2023 Patient encounter procedure Paula Tello APRN.BLEACH RANGE OPERATOR Work Phone: [facility] Start: 10-07-2023 End: 10-07-2023 ambulatory SLOAN SHERMAN Facility:[facility] Start: 10-07-2023 End: 10-07-2023 Subsequent hospital visit by physician Bone Density Main A21 2 Radiology Comment on above: Aromatase inhibitor use [Z79.811] Start: 10-06-2023 End: 10-06-2023 ambulatory SLOAN SHERMAN Facility:[facility] Start: 10-05-2023 End: 10-05-2023 ambulatory Jenny Singleton Other [employer] Other Start: 10-05-2023 Telephone encounter Jenny Singleton [facility] Start: 09-27-2023 End: 09-27-2023 ambulatory Sloan Sherman Other [employer] Other Start: 09-27-2023 Encounter for genera l adult medical examination without abnormal findings Sloan Sherman [facility] Start: 09-27-2023 Periodic preventive med est patient 40-64yrs [place] Sherman [facility] Start: 09-14-2023 Telephone encounter Jessica cuba APRN.BLEACH RANGE OPERATOR Work Phone: Endocrinology Comment on above: Lab Orders Start: 09-08-2023 End: 09-08-2023 ambulatory Sloan Jorge Luis Other [employer] Other Start: 09-08-2023 Office outpatient vi sit 15 minutes Sloan Sherman [facility] Start: 04-06-2023 End: 04-06-2023 ambulatory Lab [place]ami[place] Main Ca 1 Work Phone: Hematology/Oncology Comment on above: Aromatase inhibitor use Start: 12-02-2022 Refill Sloan Sherman MD Work Phone: [address] [place] [address] Comment on above: Refill Request Start: 10-05-2022 End: 10-05-2022 ambulatory Chair 2 Breast Work Phone: Hematology/Oncology Comment on above: Malignant neoplasm o f left breast in female, estrogen receptor positive, unspecified site of breast (HCC) (Primary Dx); Invasive ductal carcinoma of breast, female, left (HCC) Start: 10-05-2022 End: 10-05-2022 Follow-up encounter Paula Tello APRN.BLEACH RANGE OPERATOR Work Phone: Hematology/Oncology Comment on above: Encounter for routin e cancer follow-up (Primary Dx); Malignant neoplasm of left breast in female, estrogen receptor positive, unspecified site of breast (HCC); Aromatase inhibitor use Start: 10-05-2022 End: 10-05-2022 Patient encounter procedure Paula Tello APRN.CNP Work Phone: [facility] Start: 10-05-2022 End: 10-05-2022 ambulatory Lab [place] Main Ca 1 Work Phone: Hematology/Oncology Comment on above: Invasive ductal carc inoma of breast, female, left (HCC) (Primary Dx); Hypothyroidism, unspecified type; Malignant neoplasm of left breast in female, estrogen receptor positive, unspecified site of breast (HCC) Start: 10-01-2022 Telephone encounter Jessica cuba LOADERS.BLEACH RANGE OPERATOR Work Phone: Endocrinology Comment on above: [employer] Approval of Coverage ([place] Thyroid 120 mg) Start: 09-30-2022 Refill Jessica Chino LOADERS.BLEACH RANGE OPERATOR Work Phone: Internal Medicine Comment on above: Refill Request Start: 08-11-2022 ambulatory No Pcp Juan Carlos [place] Start: 07-31-2022 End: 07-31-2022 ambulatory Roxana Hoang LOADERS.BLEACH RANGE OPERATOR Work Phone: Hematology/Oncology Comment on above: Invasive ductal carc inoma of breast, female, left (HCC) (Primary Dx); Aromatase inhibitor use; Arthralgia of multiple sites Start: 07-31-2022 End: 07-31-2022 Patient encounter procedure Roxana Hoang LOADERS.BLEACH RANGE OPERATOR Work Phone: [facility] Start: 07-31-2022 End: 07-31-2022 Subsequent hospital visit by physician Clinic Imaging Mammo Main Ca Work Phone: Mammography Comment on above: Mass of upper outer quadrant of left breast [N63.21] Start: 07-28-2022 Telephone encounter Daphnie arellano MD Work Phone: Hematology/Oncology Comment on above: Care Coordination Start: 07-15-2022 Telephone encounter Daphnie arellano MD Work Phone: Hematology/Oncology Comment on above: Medication Problem Start: 07-14-2022 End: 07-14-2022 ambulatory Daphnie Barreto MD Work Phone: Hematology/Oncology Comment on above: Malignant neoplasm o f left breast in female, estrogen receptor positive, unspecified site of breast (HCC) (Primary Dx) Start: 07-14-2022 End: 07-14-2022 Patient encounter procedure Daphnie Barreto MD Work Phone: [facility] Start: 07-08-2022 ambulatory Jessica Juarezocmaicol LOADERS.BLEACH RANGE OPERATOR Work Phone: Endocrinology Comment on above: Thyroid labs done Start: 06-25-2022 Telephone encounter Giovana ocampo MD Work Phone: Gynecology Comment on above: Referral Request Start: 06-17-2022 ambulatory Giovana Kasper MD Work Phone: [facility] Start: 06-17-2022 Manual pelvic examination Giovana Kasper MD Work Phone: [facility] Comment on above: Pelvic Floor Therapy Start: 05-26-2022 End: 05-26-2022 Patient encounter procedure Veronica Anand MD Work Phone: Urology Comment on above: High-tone pelvic aj or dysfunction in female (Primary Dx); Screening for genitourinary condition; Interstitial cystitis (chronic) without hematuria Start: 05-05-2022 End: 05-05-2022 Patient encounter procedure Reena Marte PA-C Work Phone: Plastic Surgery Comment on above: Breast asymmetry fol lowing reconstructive surgery (Primary Dx); History of breast cancer Start: 04-24-2022 Refill Diya masterson MD Work Phone: Endocrinology Comment on above: Refill Request Start: 04-13-2022 End: 04-13-2022 ambulatory Jenna Wilson PT Work Phone: [facility] Comment on above: Spasm of muscle (Adry carlos Dx) Start: 04-09-2022 End: 04-09-2022 ambulatory Jessica Chino LOADERS.BLEACH RANGE OPERATOR Work Phone: Endocrinology Comment on above: Hypothyroidism, unsp ecified type (Primary Dx) Start: 04-09-2022 End: 04-09-2022 Telemedicine consultation with patient Jessica Evelia Kearnse LOADERS.BLEACH RANGE OPERATOR Work Phone: [facility] Start: 04-06-2022 ambulatory Paula thacker LOADERS.BLEACH RANGE OPERATOR Work Phone: Hematology/Oncology Comment on above: [facility] Infusion #2 ( 5/12/22) Start: 04-01-2022 End: 04-01-2022 ambulatory Chair 15 Gu/Melanoma/Sarcoma Hematology/Oncology Comment on above: Invasive ductal carc inoma of breast, female, left (HCC) (Primary Dx); Sensation of pressure in bladder area Start: 04-01-2022 End: 04-01-2022 Follow-up encounter Paula Tello APRN.CNP Work Phone: Hematology/Oncology Comment on above: Encounter for routin e cancer follow-up (Primary Dx); Sensation of pressure in bladder area; Invasive ductal carcinoma of breast, female, left (HCC); Aromatase inhibitor use Start: 04-01-2022 End: 04-01-2022 Patient encounter procedure Paula Tello APRN.CNP Work Phone: [facility] Comment on above: Suture reaction, ini tial encounter (Primary Dx); S/P breast reconstruction; History of breast cancer Start: 03-24-2022 ambulatory Paula thacker APRN.CNP Work Phone: Hematology/Oncology Comment on above: Zometa & Appt w/ you on 04/01 - Start: 03-05-2022 End: 03-05-[address] SLOAN SHERMAN Facility:[facility] Start: 02-23-2022 End: 02-23-2022 ambulatory Jenna Wilson PT Work Phone: [facility] Comment on above: Spasm of muscle (Adry carlos Dx); Muscle weakness Start: 02-16-2022 ambulatory Jessica Chino APRN.BLEACH RANGE OPERATOR Work Phone: Endocrinology Comment on above: Thyroid labs Ankle/foot/joint/bod y aches Procedures Date Procedure Procedure Detail Performing Clinician Start: 11-26-2023 Colonoscopy Daphnie arellano MD Work Phone: Start: 10-12-2023 Lipid 1996 panel - S marla or Plasma Sloan Sherman MD Work Phone: Start: 10-07-2023 Radex ribs uni w/posteroant ch minimum 3 views Paula Tello APRN.CNP Work Phone: Start: 10-07-2023 Dxa bone density truman dy 1/> sites axial skel Daphnie Barreto MD Work Phone: Start: 04-06-2023 Basic metabolic pane l calcium total Paula Elisha LOADERS.BLEACH RANGE OPERATOR Work Phone: Start: 10-05-2022 Basic metabolic pane l calcium total Daphnie Barreto MD Work Phone: Start: 07-31-2022 Us breast uni real t lainey with image limited Daphnie Barreto MD Work Phone: Start: 07-12-2022 Adult depression scr eening assessment Jessica Cioce LOADERS.BLEACH RANGE OPERATOR Work Phone: Start: 05-26-2022 Urnls dip stick/tabl et rgnt auto w/o microscopy Veronica Anand MD Work Phone: Start: 04-01-2022 Urnls dip stick/tabl et reagent auto microscopy Paula Elisha LOADERS.BLEACH RANGE OPERATOR Work Phone: Start: 01-12-2022 Adult depression scr eening assessment Jessica Cioce LOADERS.BLEACH RANGE OPERATOR Work Phone: Start: 11-11-2017 Mammography Jessica Juarezo glo LOADERS.BLEACH RANGE OPERATOR Work Phone: Plan of Treatment Date Care Activity Detail Author Start: 11-26-2028 Screening for malignant neoplasm of colon [facility] Start: 10-12-2028 Lipid 1996 panel - Serum or Plasma Lipid Screening [facility] Start: 10-12-2028 Lipid panel Lipid Screening [facility] Start: 04-05-2027 Diabetes Screening Diabetes Screening [facility] Start: 10-25-2026 Diabetes Screening Diabetes Screening [facility] Start: 10-12-2026 Diabetes Screening Diabetes Screening [facility] Start: 10-06-2026 Diabetes Screening Diabetes Screening [facility] Start: 04-06-2026 DIABETES SCREEN DIABETES SCREEN [facility] Start: 04-06-2026 Diabetes Screening Diabetes Screening [facility] Start: 10-05-2025 DIABETES SCREEN DIABETES SCREEN [facility] Start: 07-07-2025 DIABETES SCREEN DIABETES SCREEN [facility] Start: 03-27-2025 DIABETES SCREEN DIABETES SCREEN [facility] Start: 12-19-2024 DIABETES SCREEN DIABETES SCREEN [facility] Start: 10-09-2024 End: 10-09-2024 Follow-up encounter Hematology/Oncology Comment on above: follow up per pt req Start: 10-06-2024 End: 10-06-2024 Patient encounter procedure 10/06/2024 11:45 AM EST Office Visit [facility] [address] [place] [address] [place] [address] lab [facility] Comment on above: lab Start: 08-01-2024 End: 08-01-2024 Admission to same day surgery center 08/01/2024 8:20 AM EDT [facility] [address] [address] Reena Senior PA-C [address] [address] Post op Plastic Surgery Comment on above: Post op Start: 07-23-2024 Covid-19 Vaccine ( season) Covid-19 Vaccine ( season) [facility] Start: 07-23-2024 Influenza vaccination Influenza Vaccine (#1) [facility] Start: 07-13-2024 End: 07-13-2024 Admission to same day surgery center 07/13/2024 8:20 AM EDT [facility] Plastic Surgery [address] [address] Reena Senior PA-C [address] [address] Post op Plastic Surgery Comment on above: Post op Start: 07-03-2024 End: 07-03-2024 Patient encounter procedure 07/03/2024 8:00 AM EDT Office Visit Plastic Surgery [address] [address] Reena Senior PA-C [address] [place] [address] [facility] Plastic Surgery Comment on above: [facility] Start: 06-15-2024 End: 06-15-2024 ambulatory 06/15/2024 7:00 PM EDT [facility] Endocrinology [address] [place] [address] Jessica Chino APRN.BLEACH RANGE OPERATOR [address] [place] [address] lab results from 04/05/24 & meds Endocrinology Comment on above: lab results from 04/05/24 & meds Start: 06-15-2024 End: 09-14-2024 Thyrotropin [Units/volume] in Serum or Plasma THYROID STIMULATING HORMONE Lab Routine Hypothyroidism, unspecified type Expected: 06/15/2024, Expires: 09/14/2024 [facility] Work Phone: Comment on above: Expected: 06/15/2024, Expires: Start: 06-15-2024 End: 09-14-2024 Thyroxine (T4) free [Mass/volume] in Serum or Plasma T4 FREE/FREE THYROXINE Lab Routine Hypothyroidism, unspecified type Expected: 06/15/2024, Expires: 09/14/2024 [facility] Comment on above: Expected: 06/15/2024, Expires: Start: 06-15-2024 End: 09-14-2024 Triiodothyronine (T3) Free [Mass/volume] in Serum or Plasma T3, FREE Lab Routine Hypothyroidism, unspecified type Expected: 06/15/2024, Expires: 09/14/2024 [facility] Comment on above: Expected: 06/15/2024, Expires: Start: 05-14-2024 Subsequent hospital visit by physician 05/14/[address] [facility] [address] [address] Cynthia Durán MD [address] [place] [address] Breast asymmetry following reconstructive surgery [N65.1] Surgery Center Comment on above: Breast asymmetry following reconstructiv e surgery [N65.1] Start: 04-27-2024 End: 04-27-2024 ambulatory 04/27/2024 6:00 PM EDT [facility] [address] [place] [address] Jessica Chino APRN.BLEACH RANGE OPERATOR [address] [place] [address] lab results from 04/05/24 & meds Endocrinology Comment on above: lab results from 04/05/24 & meds Start: 04-06-2024 End: 07-06-2024 Basic metabolic 2000 panel - Serum or Plasma BASIC METABOLIC PNL Lab Routine Aromatase inhibitor use Expected: 04/06/2024, Expires: 07/06/2024 [facility] Work Phone: Comment on above: Expected: 04/06/2024, Expires: Start: 11-22-2023 Behavioral Health Screening Behavioral Health Screening [facility] Start: 09-28-2023 End: 12-28-2023 25-hydroxyvitamin D3 [Mass/volume] in Serum or Plasma VITAMIN D 25 HYDROXY Lab Routine Vitamin D deficiency Expected: 09/28/2023, Expires: 12/28/2023 [facility] Work Phone: Comment on above: Expected: 09/28/2023, Expires: Start: 09-28-2023 End: 12-28-2023 Thyrotropin [Units/volume] in Serum or Plasma TSH BLD Lab Routine Unspecified hypothyroidism Expected: 09/28/2023 (Approximate), Expires: 12/28/2023 [facility] Work Phone: Comment on above: Expected: 09/28/2023 (Approximate), Expi res: 12/28/2023 Start: 09-28-2023 End: 12-28-2023 Thyroxine (T4) free [Mass/volume] in Serum or Plasma T4 FREE/FREE THYROX Lab Routine Unspecified hypothyroidism Expected: 09/28/2023 (Approximate), Expires: 12/28/2023 [facility] Work Phone: Comment on above: Expected: 09/28/2023 (Approximate), Expi res: 12/28/2023 Start: 09-28-2023 End: 12-28-2023 Triiodothyronine (T3) Free [Mass/volume] in Serum or Plasma T3 FREE BLD Lab Routine Unspecified hypothyroidism Expected: 09/28/2023 (Approximate), Expires: 12/28/2023 [facility] Work Phone: Comment on above: Expected: 09/28/2023 (Approximate), Expi res: 12/28/2023 Start: 07-23-2023 Covid-19 Vaccine () Covid-19 Vaccine () [facility] Start: 07-23-2023 Influenza vaccination Influenza Vaccine (#1) [facility] Start: 07-12-2023 Adult depression screening assessment DEPRESSION SCREENING [facility] Start: 04-04-2023 End: 06-04-2023 Basic metabolic 2000 panel - Serum or Plasma BASIC METABOLIC PNL Lab Routine Aromatase inhibitor use Expected: 04/04/2023, Expires: 06/04/2023 [facility] Work Phone: Comment on above: Expected: 04/04/2023, Expires: Start: 01-12-2023 Adult depression screening assessment DEPRESSION SCREENING [facility] Start: 11-22-2022 DEPRESSION ASSESSMENT DEPRESSION ASSESSMENT [facility] Start: 10-14-2022 End: 12-14-2022 Basic metabolic 2000 panel - Serum or Plasma BASIC METABOLIC PNL Lab Routine Malignant neoplasm of left breast in female, estrogen receptor positive, unspecified site of breast (HCC) Expected: 10/14/2022 (Approximate), Expires: 12/14/2022 [facility] Work Phone: Comment on above: Expected: 10/14/2022 (Approximate), Expi res: 12/14/2022 Start: 09-22-2022 End: 11-22-2022 Thyrotropin [Units/volume] in Serum or Plasma TSH BLD Lab Routine Hypothyroidism, unspecified type Expected: 09/22/2022, Expires: 11/22/2022 [facility] Work Phone: Comment on above: Expected: 09/22/2022, Expires: 3 Start: 09-22-2022 End: 11-22-2022 Thyroxine (T4) free [Mass/volume] in Serum or Plasma T4 FREE/FREE THYROX Lab Routine Hypothyroidism, unspecified type Expected: 09/22/2022, Expires: 11/22/2022 [facility] Work Phone: Comment on above: Expected: 09/22/2022, Expires: 3 Start: 09-22-2022 End: 11-22-2022 Triiodothyronine (T3) Free [Mass/volume] in Serum or Plasma T3 FREE BLD Lab Routine Hypothyroidism, unspecified type Expected: 09/22/2022, Expires: 11/22/2022 [facility] Work Phone: Comment on above: Expected: 09/22/2022, Expires: 3 Start: 08-05-2022 End: 08-28-2023 Us breast uni real time with image limited US BREAST LTD LT Radiology Routine Mass of upper outer quadrant of left breast Expected: 08/05/2022 (Approximate), Expires: 08/28/2023 [facility] Work Phone: Comment on above: Expected: 08/05/2022 (Approximate), Expi res: 08/28/2023 Start: 07-23-2022 Influenza vaccination INFLUENZA (#1) [facility] Start: 07-06-2022 End: 09-05-2022 T3 FREE BLD T3 FREE BLD Lab Routine Hypothyroidism, unspecified type Expected: 07/06/2022, Expires: 09/05/2022 [facility] Work Phone: Comment on above: Expected: 07/06/2022, Expires: 2 Start: 07-06-2022 End: 09-05-2022 T4 FREE/FREE THYROX T4 FREE/FREE THYROX Lab Routine Hypothyroidism, unspecified type Expected: 07/06/2022, Expires: 09/05/2022 [facility] Work Phone: Comment on above: Expected: 07/06/2022, Expires: 2 Start: 07-06-2022 End: 09-05-2022 Thyrotropin [Units/volume] in Serum or Plasma TSH BLD Lab Routine Hypothyroidism, unspecified type Expected: 07/06/2022, Expires: 09/05/2022 [facility] Work Phone: Comment on above: Expected: 07/06/2022, Expires: 2 Start: 07-06-2022 End: 09-05-2022 VITAMIN D 25 HYDROXY VITAMIN D 25 HYDROXY Lab Routine Hypothyroidism, unspecified type Expected: 07/06/2022, Expires: 09/05/2022 [facility] Work Phone: Comment on above: Expected: 07/06/2022, Expires: 2 Start: 03-31-2022 End: 05-31-2022 T3 FREE BLD T3 FREE BLD Lab Routine Hypothyroidism, unspecified type Expected: 03/31/2022, Expires: 05/31/2022 [facility] Work Phone: Comment on above: Expected: 03/31/2022, Expires: 2 Start: 03-31-2022 End: 05-31-2022 T4 FREE/FREE THYROX T4 FREE/FREE THYROX Lab Routine Hypothyroidism, unspecified type Expected: 03/31/2022, Expires: 05/31/2022 [facility] Work Phone: Comment on above: Expected: 03/31/2022, Expires: 2 Start: 03-31-2022 End: 05-31-2022 Thyrotropin [Units/volume] in Serum or Plasma TSH BLD Lab Routine Hypothyroidism, unspecified type Expected: 03/31/2022, Expires: 05/31/2022 [facility] Work Phone: Comment on above: Expected: 03/31/2022, Expires: 2 Start: 01-15-2022 Screening for malignant neoplasm of breast Mammogram Screening [facility] Start: 01-14-2022 COVID-19 VACCINE (4 - Booster for Pfizer series) COVID-19 VACCINE (4 - Booster for Pfizer series) [facility] Start: 01-06-2022 COVID-19 VACCINE (4 - Booster for Pfizer series) COVID-19 VACCINE (4 - Booster for Pfizer series) [facility] Start: 12-09-2021 COVID-19 VACCINE (4 - Booster for Pfizer series) COVID-19 VACCINE (4 - Booster for Pfizer series) [facility] Start: 11-22-2021 DEPRESSION ASSESSMENT DEPRESSION ASSESSMENT [facility] Start: 06-22-2021 PAP TESTING PAP TESTING [facility] Start: 06-22-2021 Screening for malignant neoplasm of cervix Pap Testing [facility] Start: 2019 COLOGUARD (FIT-DNA) COLOGUARD (FIT-DNA) [facility] Start: 2019 Colonoscopy COLONOSCOPY [facility] Start: 2019 COLORECTAL CANCER SCREENING COLORECTAL CANCER SCREENING [facility] Start: [address] COLONOGRAPHY [facility] Start: 2019 FECAL OCCULT BLOOD FECAL OCCULT BLOOD [facility] Start: 2019 Lipid 1996 panel - Serum or Plasma Lipid Screening [facility] Start: 2019 LIPID SCREEN LIPID SCREEN [facility] Start: 2019 Screening for malignant neoplasm of colon [facility] Start: 2019 SIGMOIDOSCOPY SIGMOIDOSCOPY [facility] Start: 06-22-2019 Screening for malignant neoplasm of cervix Cervical Cancer Screening [facility] Start: 11-11-2018 Mammography [facility] Start: 2004 HPV TESTING HPV TESTING [facility] Start: 2004 Screening for malignant neoplasm of cervix HPV Testing [facility] Start: 1993 Hepatitis B Vaccine (1 of 3 - 19+ 3-dose series) Hepatitis B Vaccine (1 of 3 - 19+ 3-dose series) [facility] Start: 1993 SHINGRIX VACCINE (1 of 2) SHINGRIX VACCINE (1 of 2) [facility] Start: 1993 Urine microalbumin profile [facility] Start: 1992 ANNUAL PCP TEAM CHRONIC DISEASE VISIT ANNUAL PCP TEAM CHRONIC DISEASE VISIT [facility] Start: 1992 Anxiety Screening Anxiety Screening [facility] Start: 1992 Depression Screening Depression Screening [facility] Start: 1992 HEPATITIS C SCREENING HEPATITIS C SCREENING [facility] Start: 1992 Hepatitis C screening Hepatitis C Screening [facility] Start: 1992 HIV SCREENING HIV SCREENING [facility] Start: 1992 HIV screening HIV Screening [facility] Start: 1980 PNEUMOCOCCAL (1 - PCV) PNEUMOCOCCAL (1 - PCV) [facility] Start: 1974 HEPATITIS B (1 of 3 - 3-dose series) HEPATITIS B (1 of 3 - 3-dose series) [facility] Start: 1974 Hepatitis B Vaccine (1 of 3 - 3-dose series) Hepatitis B Vaccine (1 of 3 - 3-dose series) [facility] End: 10-28-2024 Screening colonoscopy COLONOSCOPY SCREENING Endoscopy Routine Screening for colon cancer Family history of colon cancer 1 Occurrences starting 10/28/2023 until 10/28/2024 [facility] Work Phone: Comment on above: 1 Occurrences starting 10/28/2023 until 10/28/2024 Tattooing incl micropigmentation 6.1-20.0 cm TATTOOING BREAST NIPPLE AREOLAR Breast asymmetry following reconstructive surgery S/P breast reconstruction Personal history of malignant neoplasm of breast PLASTICS A60 XR Hip - right 2 Views [facility] Immunizations Immunization Date Immunization Notes Care Provider Harper victoria 09-02-2023 influenza virus vaccine, unspecified formulation Jessica Chino APRN.CNP Work Phone: [facility] 09-12-2022 influenza virus vaccine, split virus (incl. purified surface antigen) [facility] Jorge Luis Other [employer] Other 09-12-2022 influenza virus vaccine, unspecified formulation Jessica Cioce LOADERS.BLEACH RANGE OPERATOR Work Phone: [facility] 03-06-2021 COVID-19 vaccine, ag e 12+ yr (PFIZER-BIONTECH - PURPLE TOP) Jessica Cioce LOADERS.BLEACH RANGE OPERATOR Work Phone: [facility] 01-25-2021 COVID-19 vaccine, ag e 12+ yr (PFIZER-BIONTECH - PURPLE TOP) Jessica Cioce LOADERS.BLEACH RANGE OPERATOR Work Phone: [facility] 08-21-2020 influenza, injectabl e, quadrivalent, preservative free Jessica Cioce LOADERS.BLEACH RANGE OPERATOR Work Phone: [facility] 10-13-2019 influenza, injectabl e, quadrivalent, preservative free Jessica Cioce LOADERS.BLEACH RANGE OPERATOR Work Phone: [facility] 09-26-2018 influenza, injectabl e, quadrivalent, contains preservative Jessica Cioce LOADERS.BLEACH RANGE OPERATOR Work Phone: [facility] 06-01-2014 hepatitis B vaccine, pediatric or pediatric/adolescent dosage Jessica Cioce LOADERS.BLEACH RANGE OPERATOR Work Phone: [facility] 06-01-2014 hepatitis B vaccine, unspecified formulation Giovana Kasper MD Work Phone: [facility] 10-09-2013 hepatitis B vaccine, pediatric or pediatric/adolescent dosage Jessica Cioce LOADERS.BLEACH RANGE OPERATOR Work Phone: [facility] 08-25-2013 hepatitis B vaccine, pediatric or pediatric/adolescent dosage Jessica Cioce LOADERS.BLEACH RANGE OPERATOR Work Phone: [facility] Payers Date Payer Category Payer Private Health Insurance [id number] 2020 Unknown [employer]INDI [employer]IM[employer] PPO [id number] 2020-Present [phone] [address] [place] [address] PPO [id number] 2020 Unknown SINDI JIMENEZ [employer] PPO [id number] 2020-Present [phone] [address] [place] [address] PPO [id number] 2017 Unknown [id number] 2014 Private Health Insurance [facility] [id number] 1974 Unknown [id number] 1974 Unknown [id number] 1974 Unknown [id number] 1959 Unknown [id number] Self-pay Self Pay [id number] Unknown [id number] Unknown [employer] [id number] Social History Date Type Detail Facility Start: 10-25-2023 End: 02-03-2024 Tobacco smoking status NHIS Never smoked tobacco [facility] Start: 01-20-2022 End: 07-03-2024 Alcohol intake Current drinker of alcohol (finding) [facility] Start: 11-06-2021 History SDOH Alcohol Comment Rarely [facility] Start: 1975 Sex Assigned At Female [facility] Start: 02-20-2022 End: 10-05-2022 Exposure to SARS-CoV-2 (event) Not sure [facility] Start: 04-06-2023 End: 04-04-2024 Sex Assigned At [facility] Start: 04-06-2023 End: 04-04-2024 History of Social function [facility] Adult Depression Screening Assessment 0 [facility] Start: 01-14-2021 Gender identity Identifies as female gender (finding) [facility] Start: 01-14-2021 Sexual orientation Heterosexual (fin ding) [facility] Start: 10-25-2023 Tobacco use and exposure Smoke less tobacco non-user [facility] Medical Equipment Procedure Code Equipment Code Equipment Origin al Text Equipment Identifier Dates Implant Natrelle Inspira Full Profile Silicone Breast Smooth Shell Surface - [id number] Start: 08-18-2021 Implant Natrelle Inspira Full Profile Silicone Breast Smooth Shell Surface - [id number] Start: 08-18-2021 Matrix Alloderm Tissue Medium Rectangular [id number] - [id number] Start: 02-14-2021 Matrix Alloderm Tissue Medium Rectangular [id number] - [id number] Start: 02-14-2021 Clinical Notes 02-23-2022 to 08-01-2024 Reena Senior PA-C - 08/01/2024 8:20 AM EDTPatient InstructionsReena Senior PA-C - 07/03/2024 8:22 AM EDTTelephone Encounter - Nola Liz RN - 06/21/2024 12:13 PM EDT Note Date & Type Note Facility 08-01-2024 History of Presen t illness Narrative Plastic Surgery Post Op Note Virtual visit, Zoom encounter I have communicated my name and active licensure. The patient's identity and physical location were verified at the time of this visit. Either the patient or their legal call center representative has been informed of the risks and benefits of -- and alternatives to -- treatment through a remote evaluation and consents to proceed with the evaluation remotely. CC: post op HPI: Payal Dos Santos is a 48 year old female who presents s/p Date of Procedure: 07/03/2024 Bilateral nipple areolar complex tattoo Time Postop: 4 weeks Tattoo lightened up significantly after, but patient is happy with color currently. PAST MEDICAL HISTORY 02/2021: Breast cancer (HCC) No date: Delayed emergence from general anesthesia 11/22/1997: Epilepsy (HCC) 11/22/2006: Hypothyroidism No date: PONV (postoperative nausea and vomiting) PAST SURGICAL HISTORY 05/26/2022: CYSTOSCOPY Comment: DR[facility] VERONICA [facility]ESS [facility] 05/20/2015: MAMM STEREOTACTIC BREAST BIOPSY (HL,SP,MM) Comment: left breast 01/2021: MASTECTOMY HX Comment: bilateral No date: PAST SURGICAL HISTORY OF Comment: breast biopsy 08/2019: PAST SURGICAL HISTORY OF Comment: D&C No date: PAST SURGICAL HISTORY OF Comment: wisdom teeth extraction - once in high school, 2nd time 201108/18/2021: PAST SURGICAL HISTORY OF Comment: breast reconstruction 2020: TOTAL ABDOM HYSTERECTOMY Current Outpatient Medications on File Prior to Visit Medication Sig levothyroxine (SYNTHROID) 175 mcg tablet Take 1 tablet by mouth once daily. liothyronine (CYTOMEL) 5 mcg tablet Take 1 tablet by mouth once daily. anastrozole (ARIMIDEX) 1 mg tablet take 1 tablet once daily AJOVY AUTOINJECTOR 225 mg/1.5 mL auto-injector multivit-min/vit C/herb no.124 (AIRBORNE GUMMY ORAL) Take by mouth. lamoTRIgine (LAMICTAL) 100 mg tablet Take 100 mg by mouth twice daily. SUMAtriptan 100 mg tablet Take 100 mg by mouth as needed. Take one tablet at onset of headache ,can repeat one time in 2 hours No current facility-administered medications on file prior to visit. LMP 04/14/2021 PE Alert and oriented in NAD on room air Reviewed photos Good color and cosmetic result of tattoo Minimal asymmetry bilateral breasts ASSESSMENT/PLAN: S/p bilateral NAC tattooing Tattoo with good color take at this time. Patient happy with results. Follow up yearly for implant evaluation or as needed for tattooing. Reena Senior PA-C 08/01/2024 This visit was conducted as a virtual visit. I have communicated my name and active licensure. The patient's identity and physical location were verified at the time of this visit. Either the patient or their legal call center representative has been informed of the risks and benefits of -- and alternatives to -- treatment through a remote evaluation and consents to proceed with the evaluation remotely. documented in this encounter [facility] 08-01-2024 Note HNO ID: [id number] Author: REENA SENIOR PA-C Service: ? Author Type: Physician 3Rd Mate Type: Progress Notes Filed: 08/01/2024 09:44 Note Text: Plastic Surgery Post Op Note Virtual visit, Zoom encounter I have communicated my name and active licensure. The patient's identity and physical location were verified at the time of this visit. Either the patient or their legal call center representative has been informed of the risks and benefits of -- and alternatives to -- treatment through a remote evaluation and consents to proceed with the evaluation remotely. CC: post op HPI: Payal Dos Santos is a 48 year old female who presents s/p Date of Procedure: 07/03/2024 Bilateral nipple areolar complex tattoo Time Postop: 4 weeks Tattoo lightened up significantly after, but patient is happy with color currently. PAST MEDICAL HISTORY 02/2021: Breast cancer (HCC) No date: Delayed emergence from general anesthesia 11/22/1997: Epilepsy (HCC) 11/22/2006: Hypothyroidism No date: PONV (postoperative nausea and vomiting) PAST SURGICAL HISTORY 05/26/2022: CYSTOSCOPY Comment: DR[facility] VERONICA [facility]ESS [facility] 05/20/2015: MAMM STEREOTACTIC BREAST BIOPSY (HL,SP,MM) Comment: left breast 01/2021: MASTECTOMY HX Comment: bilateral No date: PAST SURGICAL HISTORY OF Comment: breast biopsy 08/2019: PAST SURGICAL HISTORY OF Comment: DANDC No date: PAST SURGICAL HISTORY OF Comment: wisdom teeth extraction - once in high school, 2nd time 201108/18/2021: PAST SURGICAL HISTORY OF Comment: breast reconstruction 2020: TOTAL ABDOM HYSTERECTOMY Current Outpatient Medications on File Prior to Visit Medication Sig levothyroxine (SYNTHROID) 175 mcg tablet Take 1 tablet by mouth once daily. liothyronine (CYTOMEL) 5 mcg tablet Take 1 tablet by mouth once daily. anastrozole (ARIMIDEX) 1 mg tablet take 1 tablet once daily AJOVY AUTOINJECTOR 225 mg/1.5 mL auto-injector multivit-min/vit C/herb no.124 (AIRBORNE GUMMY ORAL) Take by mouth. lamoTRIgine (LAMICTAL) 100 mg tablet Take 100 mg by mouth twice daily. SUMAtriptan 100 mg tablet Take 100 mg by mouth as needed. Take one tablet at onset of headache ,can repeat one time in 2 hours No current facility-administered medications on file prior to visit. LMP 04/14/2021 PE Alert and oriented in NAD on room air Reviewed photos Good color and cosmetic result of tattoo Minimal asymmetry bilateral breasts ASSESSMENT/PLAN: S/p bilateral NAC tattooing Tattoo with good color take at this time. Patient happy with results. Follow up yearly for implant evaluation or as needed for tattooing. Reena Senior PA-C 08/01/2024 This visit was conducted as a virtual visit. I have communicated my name and active licensure. The patient's identity and physical location were verified at the time of this visit. Either the patient or their legal call center representative has been informed of the risks and benefits of -- and alternatives to -- treatment through a remote evaluation and consents to proceed with the evaluation remotely. [facility] 07-03-2024 Instructions Reena Senior PA-C - 07/03/2024 9:53 AM EDT POST-PROCEDURE RECOMMENDATIONS: - Ok to shower today - Antibiotic ointment for 3 days - Vaseline or aquaphor to affected area following shower 1 week/as long as there is scabbing/peeling - Dry dressing if having slight bleeding/seeping -No submerging in water until there is no bleeding or seeping - f/u 1 month as needed or sooner if issues arise documented in this encounter [facility] 07-03-2024 Note HNO ID: [id number] Author: REENA SENIOR PA-C Service: ? Author Type: Physician 3Rd Mate Type: Progress Notes Filed: 07/03/2024 12:19 Note Text: Patient verified by: Name, Medical Record Number and Date of Site of the procedure confirmed:Yes Site: bilateral reconstructed nipple areolar complexes Staff involved: Reena Senior PA-C PRE-PROCEDURE DIAGNOSIS: hx of breast cancer, hx of breast reconstruction PROCEDURAL TIME OUT: Time out verification includes:Two Patient Identifiers Correct side and site marking Agreement on the procedure to be done Correct Positioning Safety Precautions Based on Patient History or Medication ANESTHESIA: 10cc (5cc per NAC) of lidocaine 1% with epinephrine 1:200,000; confirmation by local sharp sensation testing. PROCEDURE: After achieving local anesthesia, the bilateral areas were prepped with Hibiclens and draped in the typical fashion. Inks were mixed in the typical sterile container. An 11 needle cluster were used to drive inks into the deep scar tissue of bilateral nipple areolar complexes >20cm2 until diffuse re pigmentation was achieved. There was not significant blood loss requiring hemostasis. The area was cleaned with sterile NSS, triple antibiotic ointment placed, and dressed with a sterile nonstick dressing. Measurements of area tattooed: 5 cm x 4.5 cm Ink used: sandstone 1, desert adela, blonde K21, blush (intentionally made darker due to previous fading) Estimated Blood Loss: none Complications: None Condition of Patient After Procedure: stable/unchanged. POST-PROCEDURE DIAGNOSIS: hx of breast cancer, hx of breast reconstruction. POST-PROCEDURE RECOMMENDATIONS: - Ok to shower today - Antibiotic ointment for 3 days - Vaseline or aquaphor to affected area following shower 1 week - Dry dressing if having slight bleeding/seeping -No heavy activity/friction/sweating on area for 2 - 3 days - f/u 2 months as needed or sooner if issues arise Reena Senior PA-C 07/03/2024 [facility] 07-03-2024 History of Presen t illness Narrative Patient verified by: Name, Medical Record Number and Date of Site of the procedure confirmed:Yes Site: bilateral reconstructed nipple areolar complexes Staff involved: Reena Senior PA-C PRE-PROCEDURE DIAGNOSIS: hx of breast cancer, hx of breast reconstruction PROCEDURAL TIME OUT: Time out verification includes:Two Patient Identifiers Correct side and site marking Agreement on the procedure to be done Correct Positioning Safety Precautions Based on Patient History or Medication ANESTHESIA: 10cc (5cc per NAC) of lidocaine 1% with epinephrine 1:200,000; confirmation by local sharp sensation testing. PROCEDURE: After achieving local anesthesia, the bilateral areas were prepped with Hibiclens and draped in the typical fashion. Inks were mixed in the typical sterile container. An 11 needle cluster were used to drive inks into the deep scar tissue of bilateral nipple areolar complexes >20cm2 until diffuse re pigmentation was achieved. There was not significant blood loss requiring hemostasis. The area was cleaned with sterile NSS, triple antibiotic ointment placed, and dressed with a sterile nonstick dressing. Measurements of area tattooed: 5 cm x 4.5 cm Ink used: sandstone 1, desert adela, blonde K21, blush (intentionally made darker due to previous fading) Estimated Blood Loss: none Complications: None Condition of Patient After Procedure: stable/unchanged. POST-PROCEDURE DIAGNOSIS: hx of breast cancer, hx of breast reconstruction. 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 She recommends holding it for one week prior to having your thyroid labs checked. Also, per Jessica you can stay on [place] thyroid or she can switch you to Levothyroxine/Cytomel. If you would like to switch to levothyroxine/Cytomel, please let us know and Jessica will do so. [facility] 06-21-2024 Miscellaneous Notes Updated pt via [employer] message of the following: Joseph Moe, Per Jessica Chino CNP you can restart your biotin at any time. She recommends holding it for one week prior to having your thyroid labs checked. Also, per Jessica you can stay on [place] thyroid or she can switch you to Levothyroxine/Cytomel. If you would like to switch to levothyroxine/Cytomel, please let us know and Jessica will do so. Patient labs are good She can restart her BIOTIN at any time We just ask that she stop one week PRIOR to labs She can stay on ARMOUR or she can use LEVOTHYROXINE/CYTOMEL Both will give her approx the same result. Separate CYTOMEL is easier to manipulate and adjust doses, ARMOUR is one tab and harder to adjust as needed If patient would like to switch to LEVOTHYROXINE and CYTOMEL, I will need to do conversion and send RX to her preferred pharmacy [facility]: 06/15/2024 Future OV: None. CURRENT THYROID MEDS ARMOUR 120 mg 1 tab daily except nothing one day of week Pt had thyroid labs done yesterday on 06/19/2024: Latest Ref Rng 06/19/2024 TSH 0.270 - 4.200 mIU/L 1.340 Free T4 0.9 - 1.7 ng/dL 0.9 Free T3 2.3 - 4.1 pg/mL 5.6 (H) Legend: (H) High Pt also asking if Jessica Chino CNP would consider her taking levothyroxine or levothyroxine plus liothyronine? 2. Pt also asking when she can start taking her biotin supplement? Please advise. documented in this encounter [facility] 06-21-2024 Telephone encounter Note Patient labs are good She can restart her BIOTIN at any time We just ask that she stop one week PRIOR to labs She can stay on ARMOUR or she can use LEVOTHYROXINE/CYTOMEL Both will give her approx the same result. Separate CYTOMEL is easier to manipulate and adjust doses, ARMOUR is one tab and harder to adjust as needed If patient would like to switch to LEVOTHYROXINE and CYTOMEL, I will need to do conversion and send RX to her preferred pharmacy [facility] 06-20-2024 Telephone encounter Note NIDIA: 06/15/2024 Future OV: None. CURRENT THYROID MEDS ARMOUR 120 mg 1 tab daily except nothing one day of week Pt had thyroid labs done yesterday on 06/19/2024: Latest Ref Rng 06/19/2024 TSH 0.270 - 4.200 mIU/L 1.340 Free T4 0.9 - 1.7 ng/dL 0.9 Free T3 2.3 - 4.1 pg/mL 5.6 (H) Legend: (H) High Pt also asking if Jessica Chino CNP would consider her taking levothyroxine or levothyroxine plus liothyronine? 2. Pt also asking when she can start taking her biotin supplement? Please advise. [facility] 06-15-2024 History of Presen t illness Narrative VIRTUAL VISIT PROGRESS NOTE This is a virtual visit using [employer] Video Visit. It required patient-provider interaction for the medical decision making as documented below. I have communicated my name and active licensure. The patient's identity and physical location were verified at the time of this visit. Either the patient or their legal call center representative has been informed of the risks and benefits of -- and alternatives to -- treatment through a remote evaluation and consents to proceed with the evaluation remotely. FABY Dos Santos is a 48 year old who presents today for thyroid problem HPI: PATIENT OF DR MONTESINOS, ENDOCRINE Diagnosed with hypothyroid Last endocrine OV 10/25/2023 Some elements copied from my note 10/25/2023 which have been updated where appropriate, and all reflect current medical decision making from date of this visit. HPI 10/25/2023 Reports weight gain from estrogen linnette from her breast cancer treatment Reports a 'abnormal noise' in her R ear Worried that this is related to her thyroid problem Walks for exercise, 5 times per week Resistance training 3 times per week Has gym in the basement Reports fell off the wagon due to holidays Usually eats very healthy diet other times Reports insomnia and joint aches Night sweats Had complete hyster 2020 Estrogen linnette started in 07/2021 Ongoing symptoms, just noticed more lately in the past several months HPI 06/15/2024 Still having aches/pains/hot flashes from arimidex Chronic migraines, is treated Did not do more recent labs than 04/05 States she did do her labs for her appt but then had to reschedule the appt Otherwise stable with energy/weight Is exercising with weights CURRENT THYROID MEDS ARMOUR 120 mg 1 tab daily except nothing one day of week CURRENT LABS Latest Ref Rng 12/06/2023 04/05/2024 Glucose 74 - 99 mg/dL 119 (H) BUN 7 - 21 mg/dL 14 Creatinine 0.58 - 0.96 mg/dL 0.97 (H) Sodium 136 - 144 mmol/L 141 Potassium 3.7 - 5.1 mmol/L 4.3 Chloride 97 - 105 mmol/L 105 CO2 22 - 30 mmol/L 26 Anion Gap 9 - 18 mmol/L 10 Calcium 8.5 - 10.2 mg/dL 10.2 eGFR >=60 mL/min/1.73m 72 TSH 0.270 - 4.200 mIU/L 0.417 0.818 Free T4 0.9 - 1.7 ng/dL 1.0 0.7 (L) Free T3 2.3 - 4.1 pg/mL 6.3 (H) 2.3 Vitamin D 25 Hydroxy 31.0 - 80.0 ng/mL 67.8 Recent Labs 12/19/21 1328 03/27/22 1159 07/07/22 1151 10/06/23 1153 10/12/23 1218 10/25/23 1040 12/06/23 1134 04/05/24 1201 ALT 10 10 -- -- 13 -- -- -- AST 15 18 -- -- 19 -- -- -- TSH -- 0.785 < > 0.185* -- -- 0.417 0.818 CPEPT -- -- -- -- -- 1.90 -- -- TPROT 7.4 7.3 -- -- 8.0 -- -- -- ALB 4.9 5.1* -- -- 5.2* -- -- -- CA -- 10.1 < > 9.7 9.8 -- -- 10.2 TBILI 0.3 0.2 -- -- 0.4 -- -- -- ALKPHOS 87 103 -- -- 102 -- -- -- GLUC -- 100* < > 117* 103* -- -- 119* BUN -- 17 < > 15 14 -- -- 14 CREAT -- 0.88 < > 0.87 0.90 -- -- 0.97* NA -- 139 < > 139 136 -- -- 141 K -- 4.3 < > 4.0 4.3 -- -- 4.3 CHLOR -- 101 < > 100 101 -- -- 105 CO2 -- 26 < > 26 26 -- -- 26 ANION -- 12 < > 13 9 -- -- 10 EGFROTH -- 82 < > 82 79 -- -- 72 HBA1C -- -- -- -- -- 5.6 -- -- B12 656 -- -- -- -- -- -- -- < > = values in this interval not displayed. Recent Labs 12/19/21 1328 10/12/23 1218 10/25/23 1040 TG -- 72 -- CHOL -- 237* -- HDL -- 88 -- VLDL -- 14 -- LDL -- 135* -- TCHDL -- 2.69 -- LDLHDL -- 1.53 -- NONHDL -- 149* -- HBA1C -- -- 5.6 HBA0 -- -- 114 B12 656 -- -- PAST MEDICAL HISTORY Diagnosis Date Breast cancer (HCC) 02/2021 Delayed emergence from general anesthesia Epilepsy ([facility]) 11/22/1997 Hypothyroidism 11/22/2006 PONV (postoperative nausea and vomiting) PAST SURGICAL HISTORY Procedure Laterality Date CYSTOSCOPY 05/26/2022 DR. VERONICA [facility]ESS [facility] MAMM STEREOTACTIC BREAST BIOPSY (HL,SP,MM) 05/20/2015 left breast MASTECTOMY HX 01/2021 bilateral PAST SURGICAL HISTORY OF breast biopsy PAST SURGICAL HISTORY OF 08/2019 D&C PAST SURGICAL HISTORY OF wisdom teeth extraction - once in high school, 2nd time 2012 PAST SURGICAL HISTORY OF 08/18/2021 breast reconstruction TOTAL ABDOM HYSTERECTOMY 2020 FAMILY HISTORY Problem Relation Age of Onset Cancer Father rectal Colon Cancer Father 65 Prostate Cancer Maternal Grandfather Osteoporosis Maternal Grandmother other (heart attack) Paternal Grandfather 60 Ovarian cancer Paternal Grandmother Stroke Paternal Grandmother Anesthesia Problems No Family History Social History Tobacco Use Smoking status: Never Smokeless tobacco: Never Vaping Use Vaping Use: Never used Substance Use Topics Alcohol use: Yes Comment: Rarely Drug use: No Current Outpatient Medications Medication Sig anastrozole (ARIMIDEX) 1 mg tablet take 1 tablet once daily ARMOUR THYROID 120 mg tablet Take 1 tab daily EXCEPT WEDNESDAY TAKE NOTHING. AJOVY AUTOINJECTOR 225 mg/1.5 mL auto-injector ondansetron (ZOFRAN) 8 mg tablet Take 1 tablet by mouth every 8 hours as needed for nausea/vomiting. multivit-min/vit C/herb no.124 (AIRBORNE GUMMY ORAL) Take by mouth. lamoTRIgine (LAMICTAL) 100 mg tablet Take 100 mg by mouth twice daily. SUMAtriptan 100 mg tablet Take 100 mg by mouth as needed. Take one tablet at onset of headache ,can repeat one time in 2 hours No current facility-administered medications for this visit. ALLERGIES Allergen Reactions Compazine [Prochlor* Myalgia Erythromycin Base Vomiting Answers submitted by the patient for this visit: Core Review of Systems (Submitted on 06/08/2024) Fever : No Night sweats: Yes - ARIMIDEX Recent unintentional weight change: No Nasal Congestion: No Hearing Loss: No Vision Disturbance: No A cough: No Difficulty Breathing?: No Chest pain: No Irregular heartbeat: No Leg Swelling: No Nausea: No Diarrhea: No Black tarry stools: No Difficulty Urinating?: No Awaken at Night More Than Once to Urinate?: No Joint pain or stiffness: Yes - ARIMIDEX Muscle aches: Yes - ARIMIDEX Leg or Foot Discomfort at Night?: No A rash: No Dizziness: No Headaches: Yes - chronic migraines, treated Memory Loss: No Seizures: No REVIEW OF SYSTEMS - POSITIVES IN BOLD GENERAL:No weight loss, malaise or fevers HEENT:Negative for frequent or significant headaches, No changes in hearing or vision, no nose bleeds or other nasal problems NECK:Negative for lumps, goiter, pain and significant neck swelling RESPIRATORY: Negative for cough, hemoptysis, wheezing, COPD, dyspnea or shortness of breath CARDIOVASCULAR: Negative for chest pain, leg swelling, hypertension, CHF or palpitations VIDEO EXAM: (if completed, performed via video enabled technology) GENERAL: alert and appropriate, in no distress, well-hydrated, well nourished, and happy, smiling, interactive SKIN: no rash noted HEAD: normocephalic, no abnormality or lesion noted EYES: PERRL NECK: full ROM, no cervical LNs noted EXTREMITIES: not assessed NEUROLOGIC: no obvious deficit ASSESSMENT/PLAN (E03.9) Unspecified hypothyroidism (primary encounter diagnosis) Comment: repeat TFTs, await labs, adjust if needed Recommend BIOTIN 10,000 mg daily max for hair/skin/nails//supplement Discussed to stop biotin one week prior to any thyroid labs Patient will do her repeat thyroid labs and then start biotin supplementation Plan: THYROID STIMULATING HORMONE, T4 FREE/FREE THYROXINE, T3, FREE (E55.9) Vitamin D deficiency Comment: cont with supplementation, monitoring Plan: VITAMIN D 25 HYDROXY Jessica Chino CNP documented in this encounter [facility] 06-15-2024 Note HNO ID: [id number] Author: JESSICA CHINO APRN.CNP Service: ? Author Type: Nurse Practitioner Type: Progress Notes Filed: 06/15/2024 19:03 Note Text: VIRTUAL VISIT PROGRESS NOTE This is a virtual visit using [employer] Video Visit. It required patient-provider interaction for the medical decision making as documented below. I have communicated my name and active licensure. The patient's identity and physical location were verified at the time of this visit. Either the patient or their legal call center representative has been informed of the risks and benefits of -- and alternatives to -- treatment through a remote evaluation and consents to proceed with the evaluation remotely. FABY Dos Santos is a 48 year old who presents today for thyroid problem HPI: PATIENT OF DR MONTESINOS, ENDOCRINE Diagnosed with hypothyroid Last endocrine OV 10/25/2023 Some elements copied from my note 10/25/2023 which have been updated where appropriate, and all reflect current medical decision making from date of this visit. HPI 10/25/2023 Reports weight gain from estrogen linnette from her breast cancer treatment Reports a 'abnormal noise' in her R ear Worried that this is related to her thyroid problem Walks for exercise, 5 times per week Resistance training 3 times per week Has gym in the basement Reports fell off the wagon due to holidays Usually eats very healthy diet other times Reports insomnia and joint aches Night sweats Had complete hyster 2020 Estrogen linnette started in 07/2021 Ongoing symptoms, just noticed more lately in the past several months HPI 06/15/2024 Still having aches/pains/hot flashes from arimidex Chronic migraines, is treated Did not do more recent labs than 04/05 States she did do her labs for her appt but then had to reschedule the appt Otherwise stable with energy/weight Is exercising with weights CURRENT THYROID MEDS ARMOUR 120 mg 1 tab daily except nothing one day of week CURRENT LABS Latest Ref Rng 12/06/2023 04/05/2024 Glucose 74 - 99 mg/dL 119 (H) BUN 7 - 21 mg/dL 14 Creatinine 0.58 - 0.96 mg/dL 0.97 (H) Sodium 136 - 144 mmol/L 141 Potassium 3.7 - 5.1 mmol/L 4.3 Chloride 97 - 105 mmol/L 105 CO2 22 - 30 mmol/L 26 Anion Gap 9 - 18 mmol/L 10 Calcium 8.5 - 10.2 mg/dL 10.2 eGFR >=60 mL/min/1.73m? 72 TSH 0.270 - 4.200 mIU/L 0.417 0.818 Free T4 0.9 - 1.7 ng/dL 1.0 0.7 (L) Free T3 2.3 - 4.1 pg/mL 6.3 (H) 2.3 Vitamin D 25 Hydroxy 31.0 - 80.0 ng/mL 67.8 Recent Labs 12/19/21 1328 03/27/22 1159 07/07/22 1151 10/06/23 1153 10/12/23 1218 10/25/23 1040 12/06/23 1134 04/05/24 1201 ALT 10 10 -- -- 13 -- -- -- AST 15 18 -- -- 19 -- -- -- TSH -- 0.785 < > 0.185* -- -- 0.417 0.818 CPEPT -- -- -- -- -- 1.90 -- -- TPROT 7.4 7.3 -- -- 8.0 -- -- -- ALB 4.9 5.1* -- -- 5.2* -- -- -- CA -- 10.1 < > 9.7 9.8 -- -- 10.2 TBILI 0.3 0.2 -- -- 0.4 -- -- -- ALKPHOS 87 103 -- -- 102 -- -- -- GLUC -- 100* < > 117* 103* -- -- 119* BUN -- 17 < > 15 14 -- -- 14 CREAT -- 0.88 < > 0.87 0.90 -- -- 0.97* NA -- 139 < > 139 136 -- -- 141 K -- 4.3 < > 4.0 4.3 -- -- 4.3 CHLOR -- 101 < > 100 101 -- -- 105 CO2 -- 26 < > 26 26 -- -- 26 ANION -- 12 < > 13 9 -- -- 10 EGFROTH -- 82 < > 82 79 -- -- 72 HBA1C -- -- -- -- -- 5.6 -- -- B12 656 -- -- -- -- -- -- -- < > = values in this interval not displayed. Recent Labs 12/19/21 1328 10/12/23 1218 10/25/23 1040 TG -- 72 -- CHOL -- 237* -- HDL -- 88 -- VLDL -- 14 -- LDL -- 135* -- TCHDL -- 2.69 -- LDLHDL -- 1.53 -- NONHDL -- 149* -- HBA1C -- -- 5.6 HBA0 -- -- 114 B12 656 -- -- PAST MEDICAL HISTORY Diagnosis Date Breast cancer (HCC) 02/2021 Delayed emergence from general anesthesia Epilepsy (HCC) 11/22/1997 Hypothyroidism 11/22/2006 PONV (postoperative nausea and vomiting) PAST SURGICAL HISTORY Procedure Laterality Date CYSTOSCOPY 05/26/2022 DR. VERONICA [facility]ESS [facility] STEREOTACTIC BREAST BIOPSY (HL,SP,MM) 05/20/2015 left breast MASTECTOMY HX 01/2021 bilateral PAST SURGICAL HISTORY OF breast biopsy PAST SURGICAL HISTORY OF 08/2019 [facility] [place] PAST SURGICAL HISTORY OF wisdom teeth extraction - once in high school, 2nd time 2011 PAST SURGICAL HISTORY OF 08/18/2021 breast reconstruction TOTAL ABDOM HYSTERECTOMY 2020 FAMILY HISTORY Problem Relation Age of Onset Cancer Father rectal Colon Cancer Father 65 Prostate Cancer Maternal Grandfather Osteoporosis Maternal Grandmother other (heart attack) Paternal Grandfather 60 Ovarian cancer Paternal Grandmother Stroke Paternal Grandmother Anesthesia Problems No Family History Social History Tobacco Use Smoking status: Never Smokeless tobacco: Never Vaping Use Vaping Use: Never used Substance Use Topics Alcohol use: Yes Comment: Rarely Drug use: No Current Outpatient Medications Medication Sig anastrozo (more content not included)... [facility] 04-07-2024 Note HNO ID: [id number] Author: REENA SENIOR PA-C Service: ? Author Type: Physician 3Rd Mate Type: Progress Notes Filed: 04/07/2024 09:57 Note Text: Plastic Surgery Clinic Visit CC: 48 year old female that presents today for tattoo consult HPI: Patient has a history of bilateral breast reconstruction with implants. She had tattoos completed in 2021, but tattoos have since faded and she would like them redone. She has not noticed any changes with the implants or new swelling, change in shape or new mass. She does have a lump in the upper pole of the left breast, but she had an US that showed benign changes and the area is unchanged since the ultrasound. 07/31/22 IMPRESSION: BENIGN FINDING There is no sonographic evidence of malignancy. Multiple areas of oily cysts/fat necrosis extending within the patient's palpable areas/area of pain, which are benign. Findings are compatible with the patient's history of fat injections. Clinical follow-up is recommended. Follow-up with ACR/NCCN guidelines. ROS: PAIN ASSESSMENT: Negative for pain, history of chronic pain, or current treatment for a chronic pain condition. GENERAL: No weight loss, malaise or fevers RESPIRATORY: Negative for cough, hemoptysis, wheezing, COPD, dyspnea or shortness of breath CARDIOVASCULAR: Negative for chest pain, leg swelling, hypertension, CHF or palpitations MUSCULOSKELETAL: Negative for joint pain or swelling, back pain or muscle pain SKIN: Negative for lesions, rash, and itching PSYCH: Negative for sleep disturbance, mood disorder and recent psychosocial stressors PMH: PAST MEDICAL HISTORY Diagnosis Date Breast cancer ([facility]) 02/2021 Delayed emergence from general anesthesia Epilepsy (HCC) 11/22/1997 Hypothyroidism 11/22/2006 PONV (postoperative nausea and vomiting) PSH: PAST SURGICAL HISTORY Procedure Laterality Date CYSTOSCOPY 05/26/2022 DR. VERONICA BURGESS [facility] STEREOTACTIC BREAST BIOPSY (HL,SP,MM) 05/20/2015 left breast MASTECTOMY HX 01/2021 bilateral PAST SURGICAL HISTORY OF breast biopsy PAST SURGICAL HISTORY OF 08/2019 [facility] [place] PAST SURGICAL HISTORY OF wisdom teeth extraction - once in high school, 2nd time 2011 PAST SURGICAL HISTORY OF 08/18/2021 breast reconstruction TOTAL ABDOM HYSTERECTOMY 2020 SOC: Social History Tobacco Use Smoking status: Never Smokeless tobacco: Never Vaping Use Vaping Use: Never used Substance Use Topics Alcohol use: Yes Comment: Rarely Drug use: No HCC: Meds: Current Outpatient Medications on File Prior to Visit Medication Sig anastrozole (ARIMIDEX) 1 mg tablet take 1 tablet once daily ARMOUR THYROID 120 mg tablet Take 1 tab daily EXCEPT WEDNESDAY TAKE NOTHING. AJOVY AUTOINJECTOR 225 mg/1.5 mL auto-injector ondansetron (ZOFRAN) 8 mg tablet Take 1 tablet by mouth every 8 hours as needed for nausea/vomiting. multivit-min/vit C/herb no.124 (AIRBORNE GUMMY ORAL) Take by mouth. lamoTRIgine (LAMICTAL) 100 mg tablet Take 100 mg by mouth twice daily. SUMAtriptan 100 mg tablet Take 100 mg by mouth as needed. Take one tablet at onset of headache ,can repeat one time in 2 hours No current facility-administered medications on file prior to visit. Exam: Bilateral breast with implants in place, soft, no capsular contracture Palpable lump un upper pole of left breast - consistent with oil cysts/fat necrosis Otherwise, no lumps, masses, palpable seroma in breasts Bilateral nipple tattoo significantly faded -with left more faded than right Assessment: Faded nipple tattoos Plan: Plan for bilateral nipple tattooing. Submit to insurance. Photos today. Reena Senior PA-C 04/07/2024 [facility] 04-07-2024 History of Presen t illness Narrative Plastic Surgery Clinic Visit CC: 48 year old female that presents today for tattoo consult HPI: Patient has a history of bilateral breast reconstruction with implants. She had tattoos completed in 2021, but tattoos have since faded and she would like them redone. She has not noticed any changes with the implants or new swelling, change in shape or new mass. She does have a lump in the upper pole of the left breast, but she had an US that showed benign changes and the area is unchanged since the ultrasound. 07/31/22 IMPRESSION: BENIGN FINDING There is no sonographic evidence of malignancy. Multiple areas of oily cysts/fat necrosis extending within the patient's palpable areas/area of pain, which are benign. Findings are compatible with the patient's history of fat injections. Clinical follow-up is recommended. Follow-up with ACR/NCCN guidelines. ROS: PAIN ASSESSMENT: Negative for pain, history of chronic pain, or current treatment for a chronic pain condition. GENERAL: No weight loss, malaise or fevers RESPIRATORY: Negative for cough, hemoptysis, wheezing, COPD, dyspnea or shortness of breath CARDIOVASCULAR: Negative for chest pain, leg swelling, hypertension, CHF or palpitations MUSCULOSKELETAL: Negative for joint pain or swelling, back pain or muscle pain SKIN: Negative for lesions, rash, and itching PSYCH: Negative for sleep disturbance, mood disorder and recent psychosocial stressors PMH: PAST MEDICAL HISTORY Diagnosis Date Breast cancer (HCC) 02/2021 Delayed emergence from general anesthesia Epilepsy (HCC) 11/22/1997 Hypothyroidism 11/22/2006 PONV (postoperative nausea and vomiting) PSH: PAST SURGICAL HISTORY Procedure Laterality Date CYSTOSCOPY 05/26/2022 DR. VERONICA [facility]ESS [facility] STEREOTACTIC BREAST BIOPSY (HL,SP,MM) 05/20/2015 left breast MASTECTOMY HX 01/2021 bilateral PAST SURGICAL HISTORY OF breast biopsy PAST SURGICAL HISTORY OF 08/2019 [facility] PAST SURGICAL HISTORY OF wisdom teeth extraction - once in high school, 2nd time 2011 PAST SURGICAL HISTORY OF 08/18/2021 breast reconstruction TOTAL ABDOM HYSTERECTOMY 2020 SOC: Social History Tobacco Use Smoking status: Never Smokeless tobacco: Never Vaping Use Vaping Use: Never used Substance Use Topics Alcohol use: Yes Comment: Rarely Drug use: No HCC: Meds: Current Outpatient Medications on File Prior to Visit Medication Sig anastrozole (ARIMIDEX) 1 mg tablet take 1 tablet once daily ARMOUR THYROID 120 mg tablet Take 1 tab daily EXCEPT WEDNESDAY TAKE NOTHING. AJOVY AUTOINJECTOR 225 mg/1.5 mL auto-injector ondansetron (ZOFRAN) 8 mg tablet Take 1 tablet by mouth every 8 hours as needed for nausea/vomiting. multivit-min/vit C/herb no.124 (AIRBORNE GUMMY ORAL) Take by mouth. lamoTRIgine (LAMICTAL) 100 mg tablet Take 100 mg by mouth twice daily. SUMAtriptan 100 mg tablet Take 100 mg by mouth as needed. Take one tablet at onset of headache ,can repeat one time in 2 hours No current facility-administered medications on file prior to visit. Exam: Bilateral breast with implants in place, soft, no capsular contracture Palpable lump un upper pole of left breast - consistent with oil cysts/fat necrosis Otherwise, no lumps, masses, palpable seroma in breasts Bilateral nipple tattoo significantly faded -with left more faded than right Assessment: Faded nipple tattoos Plan: Plan for bilateral nipple tattooing. Submit to insurance. Photos today. Reena Senior PA-C 04/07/2024 Intake information documented in the prior visit with today. documented in this encounter [facility] 04-06-2024 Note HNO ID: [id number] Author: MARII MAGALLANES ST Service: ? Author Type: Overlocker Type: Progress Notes Filed: 04/06/2024 14:02 Note Text: DATE OF PHOTOS: 04/06/2024 Body Part: Breasts ST Patrick April 06, 2024 2:02 PM [facility] 04-06-2024 History of Presen t illness Narrative DATE OF PHOTOS: 04/06/2024 Body Part: Breasts [facility] April 06, 2024 2:02 PM documented in this encounter [facility] 04-06-2024 Note HNO ID: [id number] Author: AGATA AVILA PCNA Service: ? Author Type: Patient Care Client Success Director Type: Progress Notes Filed: 04/07/2024 09:57 Note Text: Intake information documented in the prior visit with today. [facility] 04-06-2024 Nurse Note Additional intake questions: Has the patient had fever, nausea, vomiting, diarrhea, constipation, fatigue for > 1 week? No Does the patient have a decreased appetite? No Does patient want to see a Seafood Preparer? No (yes to any of above refer patient to schedulers for dietitian appointment) ) Does patient have any new or increased numbness or tingling of extremities? No Is patient interested in fertility information? NA Does patient need any prescription refills? No Does patient have an advanced directive in place? Yes, copies are in [facility] Electronically Signed By: Fabiana Ingram LPN [facility] 04-06-2024 Nurse Note Additional intake questions: Has the patient had fever, nausea, vomiting, diarrhea, constipation, fatigue for > 1 week? No Does the patient have a decreased appetite? No Does patient want to see a Seafood Preparer? No (yes to any of above refer patient to schedulers for dietitian appointment) ) Does patient have any new or increased numbness or tingling of extremities? No Is patient interested in fertility information? NA Does patient need any prescription refills? No Does patient have an advanced directive in place? Yes, copies are in [facility] Electronically Signed By: Fabiana Ingram LPN documented in this encounter [facility] 04-06-2024 History of Presen t illness Narrative IDENTIFICATION: Payal Dos Santos is a 48 year old surgically postmenopausal woman with a [id number] G2 ER-positive, IN-positive, HER2-negative (Oncotype Dx RS of 19) left breast cancer diagnosed in December 2020 presenting today for follow-up. She was treated with bilateral mastectomy and left sentinel lymph node biopsy with bilateral implant reconstruction, adjuvant docetaxel and cyclophosphamide chemotherapy, EDWARD/BSO in June 2021 and initiated anastrozole in July 2021 with addition of zoledronic acid in September 2021. Due to side effects, anastrozole was changed to letrozole and then to exemestane and, due to cost, back to anastrozole. CURRENT SYSTEMIC THERAPY FOR BREAST CANCER: anastrozole 1 mg PO daily and zoledronic acid (every 6 months). INTERVAL HISTORY: She is doing well. Arthralgias are doing better with regular use of glucosamine and chondroitin. She has some intermittent left axillary discomfort, particularly after sleeping on her left side and also has some tingling sensations in the lateral reconstructed breast on that side. She reports no other new symptoms of concern. She is walking regularly for exercise (usually with the dog). PERTINENT PMH/FH/SH: She is s/p hysterectomy and BSO. She has a h/o hypothyroidism, migraines and seizure disorder (well controlled since 2001). There is no known breast cancer history in the family. Her father had colon cancer, paternal grandmother had ovarian cancer and maternal grandfather had prostate cancer. 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 EXAMINATION: Blood pressure 119/65, pulse 82, temperature 36.3 C (97.3 F), temperature source Temporal, resp. rate 18, weight 83.4 kg (183 lb 12.8 oz), last menstrual period 04/14/2021, SpO2 100%. HEENT examination is unremarkable. No adenopathy is appreciated in the cervical or supraclavicular regions. The heart is regular. Lung examination is clear bilaterally. Examination of the left reconstructed breast reveals no evidence of local recurrence; there are some subcentimeter nodularities superior consistent with the known oil cysts. The right reconstructed breast is free of concerning masses. No axillary adenopathy is appreciated. The abdomen is soft and nontender. There is no significant edema of the extremities. DATA: Bone density study 10/07/23 was normal (lowest T-score 0.1) Left breast ultrasound 07/31/22 demonstrated multiple areas of oil cysts and fat necrosis with no findings of concern. IMPRESSION: [id number] G2 ER-positive, IN-positive, HER2-negative left breast cancer, s/p bilateral mastectomy and left sentinel lymph node biopsy, adjuvant chemotherapy, BSO and ongoing anastrozole; free of signs and symptoms of recurrent disease. PLAN: She will continue active therapy with anastrozole 1 mg PO daily with the intent to complete 7 years. She will receive her 6th and final planned zoledronic acid treatment today. We reviewed the most recent bone density result and will plan to complete the study after 2 years. She will return in about 6 months to see Paula Tello CNP. I will plan to see her in about 1 year. She had the opportunity to have her questions addressed. I spent a total of about 30 minutes on the date of the service which included preparing to see the patient, [id number] patient care, completing clinical documentation, performing a medically appropriate examination, counseling and educating the patient/family/caregiver, ordering medications, tests, or procedures, and communicating results to the patient/family/caregiver. Daphnie Barreto MD documented in this encounter [facility] 04-06-2024 Note HNO ID: [id number] Author: DAPHNIE BARRETO MD Service: ? Author Type: Physician Type: Progress Notes Filed: 04/06/2024 09:44 Note Text: IDENTIFICATION: Payal Dos Santos is a 48 year old surgically postmenopausal woman with a [id number] G2 ER-positive, IN-positive, HER2-negative (Oncotype Dx RS of 19) left breast cancer diagnosed in December 2020 presenting today for follow-up. She was treated with bilateral mastectomy and left sentinel lymph node biopsy with bilateral implant reconstruction, adjuvant docetaxel and cyclophosphamide chemotherapy, EDWARD/BSO in June 2021 and initiated anastrozole in July 2021 with addition of zoledronic acid in September 2021. Due to side effects, anastrozole was changed to letrozole and then to exemestane and, due to cost, back to anastrozole. CURRENT SYSTEMIC THERAPY FOR BREAST CANCER: anastrozole 1 mg PO daily and zoledronic acid (every 6 months). INTERVAL HISTORY: She is doing well. Arthralgias are doing better with regular use of glucosamine and chondroitin. She has some intermittent left axillary discomfort, particularly after sleeping on her left side and also has some tingling sensations in the lateral reconstructed breast on that side. She reports no other new symptoms of concern. She is walking regularly for exercise (usually with the dog). PERTINENT PMH/FH/SH: She is s/p hysterectomy and BSO. She has a h/o hypothyroidism, migraines and seizure disorder (well controlled since 2001). There is no known breast cancer history in the family. Her father had colon cancer, paternal grandmother had ovarian cancer and maternal grandfather had prostate cancer. 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 EXAMINATION: Blood pressure 119/65, pulse 82, temperature 36.3 ?C (97.3 ?F), temperature source Temporal, resp. rate 18, weight 83.4 kg (183 lb 12.8 oz), last menstrual period 04/14/2021, SpO2 100%. HEENT examination is unremarkable. No adenopathy is appreciated in the cervical or supraclavicular regions. The heart is regular. Lung examination is clear bilaterally. Examination of the left reconstructed breast reveals no evidence of local recurrence; there are some subcentimeter nodularities superior consistent with the known oil cysts. The right reconstructed breast is free of concerning masses. No axillary adenopathy is appreciated. The abdomen is soft and nontender. There is no significant edema of the extremities. DATA: Bone density study 10/07/23 was normal (lowest T-score 0.1) Left breast ultrasound 07/31/22 demonstrated multiple areas of oil cysts and fat necrosis with no findings of concern. IMPRESSION: [id number] G2 ER-positive, IN-positive, HER2-negative left breast cancer, s/p bilateral mastectomy and left sentinel lymph node biopsy, adjuvant chemotherapy, BSO and ongoing anastrozole; free of signs and symptoms of recurrent disease. PLAN: She will continue active therapy with anastrozole 1 mg PO daily with the intent to complete 7 years. She will receive her 6th and final planned zoledronic acid treatment today. We reviewed the most recent bone density result and will plan to complete the study after 2 years. She will return in about 6 months to see Paula Tello CNP. I will plan to see her in about 1 year. She had the opportunity to have her questions addressed. I spent a total of about 30 minutes on the date of the service which included preparing to see the patient, [id number] patient care, completing clinical documentation, performing a medically appropriate examination, counseling and educating the patient/family/caregiver, ordering medications, tests, or procedures, and communicating results to the patient/family/caregiver. Daphnie Barreto MD [facility] 10-28-2023 History and physical note DIST[facility] VISIT This Team Access Model visit is a virtual encounter. It required patient-provider interaction for the medical decision making as documented below. REASON FOR VISIT: Consult HPI: Payal Dos Santos is a 48 year old female who presents for colonoscopy consult. Patient denies GI complaints. No prior history of colonoscopy. Family history of colon cancer in her father.No prior abdominopelvic surgeries. Not currently on blood thinners. Past Clinical Work-Up: ALLERGIES Allergen Reactions Compazine [Prochlor* Myalgia Erythromycin Base Vomiting PAST MEDICAL HISTORY Diagnosis Date Breast cancer (HCC) 02/2021 Delayed emergence from general anesthesia Epilepsy (HCC) 11/22/1997 Hypothyroidism 11/22/2006 PONV (postoperative nausea and vomiting) PAST SURGICAL HISTORY Procedure Laterality Date CYSTOSCOPY 05/26/2022 DR. VERONICA [facility]ESS [facility] MAMM STEREOTACTIC BREAST BIOPSY (HL,SP,MM) 05/20/2015 left breast MASTECTOMY HX 01/2021 bilateral PAST SURGICAL HISTORY OF breast biopsy PAST SURGICAL HISTORY OF 08/2019 [facility] PAST SURGICAL HISTORY OF wisdom teeth extraction - once in high school, 2nd time 2011 PAST SURGICAL HISTORY OF 08/18/2021 breast reconstruction TOTAL ABDOM HYSTERECTOMY 2020 FAMILY HISTORY Problem Relation Age of Onset Cancer Father rectal Colon Cancer Father 65 Prostate Cancer Maternal Grandfather Osteoporosis Maternal Grandmother other (heart attack) Paternal Grandfather 60 Ovarian cancer Paternal Grandmother Stroke Paternal Grandmother Anesthesia Problems No Family History Social History Tobacco Use Smoking status: Never Smokeless tobacco: Never Vaping Use Vaping Use: Never used Substance Use Topics Alcohol use: Yes Comment: Rarely Drug use: No Current Outpatient Medications Medication Sig ARMOUR THYROID 120 mg tablet Take 1 tab six days only, NOTHING ONE DAY of the week. anastrozole (ARIMIDEX) 1 mg tablet Take 1 tablet by mouth once daily. AJOVY AUTOINJECTOR 225 mg/1.5 mL auto-injector ondansetron (ZOFRAN) 8 mg tablet Take 1 tablet by mouth every 8 hours as needed for nausea/vomiting. multivit-min/vit C/herb no.124 (AIRBORNE GUMMY ORAL) Take by mouth. lamoTRIgine (LAMICTAL) 100 mg tablet Take 100 mg by mouth twice daily. SUMAtriptan 100 mg tablet Take 100 mg by mouth as needed. Take one tablet at onset of headache ,can repeat one time in 2 hours No current facility-administered medications for this visit. I have confirmed and edited, if necessary, the PFSH obtained by others. REVIEW OF SYSTEMS: GENERAL: No weight loss, malaise or fevers RESPIRATORY: Negative for cough, hemoptysis, wheezing, dyspnea or shortness of breath CARDIOVASCULAR: Negative for chest pain, leg swelling, or palpitations GI: See HPI PHYSICAL EXAM: General - Normal, healthy, cooperative, in no acute distress Able to interact verbally by video conference Psych - ORIENTATION: normal to time place, person and situation Mood/Affect: AFFECT AND MOOD: Normal Head/Neuro - Normal size and shape Facial appearance normal Pulmonary - respiratory effort normal Cardiovascular - patient describes extremities normal, warm, no cyanosis,no clubbing, and no edema Abdominal - Not performed Skin - abnormal lesions not visualized Motor - patient seen sitting with Normal appearing strength and coordination ASSESSMENT/PLAN: Ms. Dos Santos is a 48 year old female with a history of breast cancer, hypothyroidism, and family hx of colon cancer presents for colonoscopy consult. Patient denies GI complaints. No prior history of colonoscopy. Family history of colon cancer in her father.No prior abdominopelvic surgeries. Not currently on blood thinners. 1. Screening for colon cancer - ICD9: V76.51, ICD10: Z12.11 (primary diagnosis) - COLONOSCOPY SCREENING 2. Family history of colon cancer - ICD9: V16.0, ICD10: Z80.0 - COLONOSCOPY SCREENING I spent more than 30 minutes [id number]-[id number] with the patient and over half the time was devoted to counseling and/or coordination of care. This note was dictated using [employer] speech recognition software and may contain some errors that were a result of the program not accurately transcribing what was dictated. I have communicated my name and active licensure. The patient's identity and physical location were verified at the time of this visit. Either the patient or their legal call center representative has been informed of the risks and benefits of -- and alternatives to -- treatment through a remote evaluation and consents to proceed with the evaluation remotely. Shona Barraza APRN.CNP documented in this encounter [facility] 10-28-2023 Instructions Shona Barraza APRN.CNP - 10/28/2023 2:14 PM EST Images from the original note were not included. Bowel Preparation Instructions for: Miralax-Gatorade Preparations IF YOU DO NOT FOLLOW THESE DIRECTIONS, YOUR COLONOSCOPY WILL BE CANCELLED. Emmanuel Instructions: Your bowel must be empty so that your doctor can clearly view your colon. Follow all of the instructions in this handout EXACTLY as they are written. Do NOT eat any solid food the ENTIRE day before your colonoscopy. Buy your bowel preparation at least 5 days before your colonoscopy. Four (4) Dulcolax laxative tablets containing 5mg of bisacodyl each (NOT Dulcolax stool softener) One (1) 8.3oz. bottle Miralax (238 grams) or generic equivalent 2 x 32oz. Bottles of Gatorade (NOT RED) Diabetic Patients: Use G2 (Gatorade 2) TRANSPORTATION on the Day of Your Exam A responsible adult MUST be present with you at Check In prior to your colonoscopy and REMAIN in the endoscopy area until you are discharged. You are NOT ALLOWED to drive, take a taxi or bus, or leave the Endoscopy Center ALONE. If you do not have a responsible local flatbed driver (family member or friend) with you to take you home, your exam cannot be done with sedation and will be cancelled. Please bring a list of all of your current medications, including any Xosl-gyc-Bbnfftd medications with you. Medications If you take insulin, diabetic medications or blood thinners such as Coumadin (warfarin), Plavix (clopidogrel), Ticlid (ticlopidine hydrochloride), Agrylin (anagrelide), Xarelto (Rivaroxaban), Pradaxa (Dabigatran), Eliquis (Apixaban), and Effient (Prasugrel). You MUST call the doctors who orders those medicines for instructions on altering the dosage before your colonoscopy. All other medications should be taken the day of the exam with a sip of water including ASPIRIN. Five (5) Days Before Your Colonoscopy Do NOT take medicines that stop diarrhea - such as Imodium, Kaopectate, or Pepto Bismol. Do NOT take fiber supplements - such as Metamucil, Citrucel, or Perdiem. Do NOT take products that contain iron - such as multi-vitamins (the label lists what is in the products). Three (3) Days Before Your Colonoscopy Do NOT eat high-fiber foods - such as popcorn, beans, seeds (flax, sunflower, quinoa), multigrain bread, nuts, salad/vegetables, or fresh and dried fruit. 1 Bowel Preparation Instructions for: Miralax-Gatorade Preparations One (1) Day Before Your Colonoscopy Only drink clear liquids the ENTIRE DAY before your colonoscopy. Do NOT eat any solid foods. Drink at least 8 ounces of clear liquids every hour after waking up. The clear liquids you can drink include: Clear Liquid (NO RED LIQUIDS) DO NOT DRINK Gatorade, Pedialyte or Powerade Clear broth or bouillon Coffee or tea (no milk or non-dairy creamer) Carbonated and non-carbonated soft drinks Case-Aid or other fruit flavored drinks Strained fruit juices (no pulp) Jell-O, popsicles, hard candy Water Alcohol Milk or non-dairy creamers Noodles or vegetables in soup Juice with pulp Liquid you cannot see through Do not use tobacco/vaping products Mix 1/2 of Miralax bottle (119 grams) in each 32 ounces of Gatorade bottle until dissolved. Keep cool in the refrigerator. DO NOT ADD ICE. The bowel preparation solution will be consumed in two parts. Part 1 5:00 PM - Evening before your colonoscopy Take 4 Dulcolax tablets. 6 PM - Evening before your colonoscopy Drink 32 oz. of the mixed solution. Drink an 8 oz. glass of bowel preparation every 15 minutes for a total of 4 glasses. Fifteen (15) minutes later, drink an 8 oz. glass of of clear liquids every 15 minutes for a total of 2 glasses. You may continue to drink clear liquids till midnight. Part 2 On the day of your colonoscopy you may drink clear liquids up to (three) 3 hours prior to procedure. 4 1/2 hours before your colonoscopy Take another 32 oz. bottle of mixed solution. Drink an 8 oz. glass of bowel prep every 15 minutes for a total of 4 glasses. Fifteen (15) minutes later, drink an 8 oz. glass of clear liquids every 15 minutes for a total of 2 glasses. You may continue to drink clear liquids up to (three) 3 hours before your exam. 2 10/2019 documented in this encounter [facility] 10-25-2023 Note HNO ID: [id number] Author: Jessica Chino APRN.LINDSAY Service: ? Author Type: Nurse Practitioner Type: Progress Notes Filed: 10/25/2023 10:01 AM Note Text: OFFICE VISIT PROGRESS NOTE CC Payal Dos Santos is a 48 year old female who presents today for hypothyroid problem. HPI PATIENT OF DR MONTESINOS, ENDOCRINE Diagnosed with hypothyroid Last endocrine OV 04/09/2022 Some elements copied from my note 04/09/2022 which have been updated where appropriate, and all reflect current medical decision making from date of this visit. 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) HPI Reports weight gain from estrogen linnette from her breast cancer treatment Reports a 'abnormal noise' in her R ear Worried that this is related to her thyroid problem Walks for exercise, 5 times per week Resistance training 3 times per week Has gym in the basement Reports fell off the wagon due to holidays Usually eats very healthy diet other times Reports insomnia and joint aches Night sweats Had complete hyster 2020 Estrogen linnette started in 07/2021 Ongoing symptoms, just noticed more lately in the past several months CURRENT THYROID MEDS ARMOUR 120 mg 1 tab daily CURRENT LABS Component Latest Ref Rng AND Units 10/05/2022 10/06/2023 Glucose 74 - 99 mg/dL 117 (H) BUN 7 - 21 mg/dL 15 Creatinine 0.58 - 0.96 mg/dL 0.87 Sodium 136 - 144 mmol/L 139 Potassium 3.7 - 5.1 mmol/L 4.0 Chloride 97 - 105 mmol/L 100 CO2 22 - 30 mmol/L 26 Anion Gap 9 - 18 mmol/L 13 Calcium 8.5 - 10.2 mg/dL 9.7 eGFR >=60 mL/min/1.73mA? 82 Free T3 2.3 - 4.1 pg/mL 5.8 (H) 6.1 (H) Free T4 0.9 - 1.7 ng/dL 1.0 1.1 TSH 0.270 - 4.200 mIU/L 0.042 (L) 0.185 (L) Vitamin D 25 Hydroxy 31.0 - 80.0 ng/mL 42.1 PAST MEDICAL HISTORY Diagnosis Date Breast cancer (HCC) 02/2021 Delayed emergence from general anesthesia Epilepsy (HCC) 11/22/1997 Hypothyroidism 11/22/2006 PONV (postoperative nausea and vomiting) PAST SURGICAL HISTORY Procedure Laterality Date CYSTOSCOPY 05/26/2022 DR. VERONICA [facility]ESS [facility] STEREOTACTIC BREAST BIOPSY (HL,SP,MM) 05/20/2015 left breast MASTECTOMY HX 01/2021 bilateral PAST SURGICAL HISTORY OF breast biopsy PAST SURGICAL HISTORY OF 08/2019 [facility] [place] PAST SURGICAL HISTORY OF wisdom teeth extraction - once in high school, 2nd time 2011 PAST SURGICAL HISTORY OF 08/18/2021 breast reconstruction TOTAL ABDOM HYSTERECTOMY 2020 FAMILY HISTORY Problem Relation Age of Onset Cancer Father rectal Colon Cancer Father 65 Prostate Cancer Maternal Grandfather Osteoporosis Maternal Grandmother other (heart attack) Paternal Grandfather 60 Ovarian cancer Paternal Grandmother Stroke Paternal Grandmother Anesthesia Problems No Family History Social History Tobacco Use Smoking status: Never Smokeless tobacco: Never Vaping Use Vaping Use: Never used Substance Use Topics Alcohol use: Yes Comment: Rarely Drug use: No Current Outpatient Medications Medication Sig ARMOUR THYROID 120 mg tablet Take 1 tablet by mouth once daily. anastrozole (ARIMIDEX) 1 mg tablet Take 1 tablet by mouth once daily. AJOVY AUTOINJECTOR 225 mg/1.5 mL auto-injector ondansetron (ZOFRAN) 8 mg tablet Take 1 tablet by mouth every 8 hours as needed for nausea/vomiting. multivit-min/vit C/herb no.124 (AIRBORNE GUMMY ORAL) Take by mouth. lamoTRIgine (LAMICTAL) 100 mg tablet Take 100 mg by mouth twice daily. SUMAtriptan 100 mg tablet Take 100 mg by mouth as needed. Take one tablet at onset of headache ,can repeat one time in 2 hours No current facility-administered medications for this visit. ALLERGIES Allergen Reactions Compazine [Prochlor* Myalgia Erythromycin Base Vomiting REVIEW OF SYSTEMS - POSITIVES IN BOLD GENERAL:No weight loss, malaise or fevers HEENT:Negative for frequent or significant headaches, No changes in hearing or vision, no nose bleeds or other nasal problems NECK:Negative for lumps, goiter, pain and significant neck swelling RESPIRATORY: Negative for cough, hemoptysis, wheezing, COPD, dyspnea or shortness of breath CARDIOVASCULAR: Negative for chest pain, leg swelling, hypertension, CHF or palpitations PHYSICAL EXAMINATION: BP 128/82 Pulse 91 Ht 180.3 cm (5' 11 ) Wt 85.7 kg (189 lb) LMP 04/14/2021 SpO2 100% BMI 26.36 kg/m? GENERAL: alert and appropriate, in no distress and well-hydrated, well nourished SKIN: no rash noted HEAD: normocephalic, no abnormality or lesion noted EYES: PERRL NECK: full ROM, no cervical LNs noted ACANTHOSIS: none noted EXTREMIT (more content not included)... [facility] 10-07-2023 History of Presen t illness Narrative Radiology Service Progress Note PATIENT NAME: Payal Dos Santos DATE OF SERVICE: October 07, 2023 TIME: 12:12 PM PATIENT IDENTITY VERIFICATION COMPLETED USING TWO (2) IDENTIFIERS: Name and Date of confirmed by patient verbally. FALL SCREENING: Has the patient had 2 falls in the last year or 1 fall with injury or currently using an Ambulatory Assistive Device (Walker, Cane, Wheelchair, Crutches, etc.)? No PATIENT GENDER DATA: Female. status: : No status: NO. PATIENT RELEVANT IMPLANT DATA REVIEWED: Not Applicable RADIOLOGY DEPARTMENT: General X-ray: Exam(s) Completed: Rib X-Ray: Right PERIPHERAL IV DATA: Not applicable SIGNED BY: RT Belia(R) October 07, 2023 12:12 PM documented in this encounter [facility] 10-07-2023 Miscellaneous Notes Encounter addended by: Shaw Osborn RT(R) on: 10/07/2023 12:13 PM Actions taken: Delete clinical note, Clinical Note Signed documented in this encounter [facility] 10-07-2023 Note HNO ID: [id number] Author: Shaw Osborn RT (R) Service: Radiology Author Type: Technologist Type: Progress Notes Filed: 10/07/2023 12:12 PM Note Text: Radiology Service Progress Note PATIENT NAME: Payal Dos Santos DATE OF SERVICE: October 07, 2023 TIME: 12:12 PM PATIENT IDENTITY VERIFICATION COMPLETED USING TWO (2) IDENTIFIERS: Name and Date of confirmed by patient verbally. FALL SCREENING: Has the patient had 2 falls in the last year or 1 fall with injury or currently using an Ambulatory Assistive Device (Walker, Cane, Wheelchair, Crutches, etc.)? No PATIENT GENDER DATA: Female. status: : No status: NO. PATIENT RELEVANT IMPLANT DATA REVIEWED: Not Applicable RADIOLOGY DEPARTMENT: General X-ray: Exam(s) Completed: Rib X-Ray: Right PERIPHERAL IV DATA: Not applicable SIGNED BY: RT Belia(R) October 07, 2023 12:12 PM [facility] 10-07-2023 Note HNO ID: [id number] Author: Shaw Osborn RT(R) Service: Radiology Author Type: Technologist Type: Progress Notes Filed: 10/07/2023 12:11 PM Note Text: Radiology Service Progress Note PATIENT NAME: Payal Dos Santos DATE OF SERVICE: October 07, 2023 TIME: 12:10 PM PATIENT IDENTITY VERIFICATION COMPLETED USING TWO (2) IDENTIFIERS: Name and Date of confirmed by patient verbally. FALL SCREENING: Has the patient had 2 falls in the last year or 1 fall with injury or currently using an Ambulatory Assistive Device (Walker, Cane, Wheelchair, Crutches, etc.)? No PATIENT GENDER DATA: Male PATIENT RELEVANT IMPLANT DATA REVIEWED: Not Applicable RADIOLOGY DEPARTMENT: General X-ray: Exam(s) Completed: Abdomen X-Ray: Abdomen PERIPHERAL IV DATA: Not applicable SIGNED BY: RT Belia(R) October 07, 2023 12:10 PM [facility] 10-07-2023 History of Presen t illness Narrative Some elements of all sections of this documentation were copied from my previous note of October 05, 2022 and have been re-examined and updated where appropriate. All elements reflect the current assessment and medical decision making of today, October 07, 2023. ATTENDING PHYSICIAN: Dr. Daphnie Barreto IDENTIFICATION: Payal Dos Santos is a 48 year old year old woman with a history of a [id number], ER positive (95%), IN positive (95%), Uaf4cig negatibe (IHC 1+) (oncotype dx recurrence score of 19), Infiltrating ductal carcinoma (grade 2) of the left breast, diagnosed in December 2020. REASON FOR VISIT / CHIEF COMPLAINT: Routine follow up for cancer care SURVIVORSHIP VISIT: September 25, 2021 CURRENT SYSTEMIC THERAPY FOR BREAST CANCER: ~ Anastrozole 1 mg daily ~ Zoledronic acid every 6 months (today, October 07, 2023 is cycle 5 of 6) PAST THERAPY FOR BREAST CANCER: Bilateral mastectomy with left sentinel node biopsy and machine plate stacker to implant reconstruction (Dr. Sigala / Dr. Rodarte; February 14, 2021, 3 cm , 1/2 nodes + with micromets) Docetaxel / Cyclophosphamide X4 (completed on June 03, 2021; received in [place]) EDWARD/BSO (June 2020) Anastrozole 1 mg daily (July 30, 2021 - September 25, 2021) Letrozole 2.5 mg daily (briefly, intolerant) Exemestane (briefly, cost was an issue) Anastrozole 1 mg daily (November 2021 - present, switched briefly to letrozole and then back again) Zoledronic acid (September 25, 2021 - present) INTERVAL HISTORY: Pt presents today by herself. She reports that she is taking her Anastrozole 1 mg daily as prescribed with minimal difficulty. Updates / Concerns noted at time of today's visit are as follows: 1) weight gain since diagnosis, finding it harder to take weight off, notes that she walks regularly but admits it is not an aggressive walk and isn't typically doing other exercises 2) chronic headaches, takes medications for the same, but denies any concerns regarding the same 3) right lower ribs hurt for 2 weeks, unchanged since presentation, denies any respiratory symptoms or trauma 4) continues with skin sensitivity with light touch, unchanged over time She otherwise reports that she physically feels well and is without any new concerns or discomforts that would be suggestive of recurrent or metastatic disease. She specifically denies any concerning nausea, vomiting, cough, shortness of breath, localized bone pain, headaches (no concerning) or diplopia. She reports that she is doing regular breast exams and denies any concerns related to the same. She also confirms that she does have a primary care provider (Sloan Sherman MD), which she verifies she is following up with regularly for her routine health maintenance. REVIEW OF SYSTEMS: The remainder of the review of systems is unremarkable. PERSONAL MEDICAL HISTORY: PAST MEDICAL HISTORY Diagnosis Date Breast cancer (HCC) 02/2021 Delayed emergence from general anesthesia Epilepsy (HCC) 11/22/1997 Hypothyroidism 11/22/2006 PONV (postoperative nausea and vomiting) PERSONAL SURGICAL HISTORY: PAST SURGICAL HISTORY Procedure Laterality Date CYSTOSCOPY 05/26/2022 DR. VERONICA [facility]ESS [facility] STEREOTACTIC BREAST BIOPSY (HL,SP,MM) 05/20/2015 left breast MASTECTOMY HX 01/2021 bilateral PAST SURGICAL HISTORY OF breast biopsy PAST SURGICAL HISTORY OF 08/2019 [facility] PAST SURGICAL HISTORY OF wisdom teeth extraction - once in high school, 2nd time 2011 PAST SURGICAL HISTORY OF 08/18/2021 breast reconstruction TOTAL ABDOM HYSTERECTOMY 2020 SIGNIFICANT (CANCER) FAMILY MEDICAL HISTORY: Father with colon cancer Paternal grandmother with ovarian cancer Maternal grandfather with prostate cancer Was a referral made to medical genetics? Breast Cancer STAT Panel with reflex to the Common Hereditary Cancers Panel through [facility] was negative for a pathogenic variant PHYSICAL EXAM: Physical exam listed below was completed in it's entirety today, October 07, 2023 and is unchanged from October 05, 2022 except where noted in italics. General appearance: well appearing, alert, in no acute distress Skin: Skin color, texture, turgor normal, no rashes or lesions Head: unremarkable Neck: Supple, no adenopathy Lungs: lungs clear to auscultation, no wheezing or rhonchi Heart: Negative, RRR Breasts: Bilateral breast exam reveals mastectomy with implants in placed, there is no axillary adenopathy, concerning skin changes or palpable lesions Abdomen: Normal abdominal exam, Abdomen soft, non-tender. No masses, organomegaly Extremities:Extremities normal. No deformities or edema. LABS/IMAGING: Lab results from October 06, 2023 have been reviewed and are as follows: Component Latest Ref Rng & Units 10/06/2023 Glucose 74 - 99 mg/dL 117 (H) BUN 7 - 21 mg/dL 15 Creatinine 0.58 - 0.96 mg/dL 0.87 Sodium 136 - 144 mmol/L 139 Potassium 3.7 - 5.1 mmol/L 4.0 Chloride 97 - 105 mmol/L 100 CO2 22 - 30 mmol/L 26 Anion Gap 9 - 18 mmol/L 13 Calcium 8.5 - 10.2 mg/dL 9.7 eGFR >=60 mL/min/1.73m 82 Free T3 2.3 - 4.1 pg/mL 6.1 (H) Free T4 0.9 - 1.7 ng/dL 1.1 TSH 0.270 - 4.200 mIU/L 0.185 (L) Vitamin D 25 Hydroxy 31.0 - 80.0 ng/mL 42.1 Routine breast imaging no longer indicated secondary to bilateral mastectomy with implant reconstruction Bone density (October 07, 2023): Normal bone density with the lowest t-score of +0.1 Chest xray / right rib series (October 07, 2023): NO ACUTE RADIOGRAPHIC ABNORMALITY IMPRESSION: [id number], ER positive (95%), IN positive (95%), Suv3uxq negatibe (IHC 1+) (oncotype dx recurrence score of 19), Infiltrating ductal carcinoma (grade 2) of the left breast, diagnosed in December 2020, s/p bilateral mastectomy with left sentinel node procedure (with subsequent implant exchange), chemotherapy with TC X4, EDWARD/BSO, started AI in July 2021, held in early September for side effects and will change to new AI today, October 06, 2021; initiated zoledronic acid September 25, 2021, no evidence of disease recurrence at the time of today's exam. PLAN: After evaluation and review of the ongoing treatment plan, the following referral/recommendations have been made. (Z08) Encounter for routine cancer follow-up (primary encounter diagnosis) (R07.81) Rib pain on right side Plan: XR RIBS/CHEST 3V AP RIB/OBLS/CXR RIGHT (C50.912, Z17.0) Malignant neoplasm of left breast in female, estrogen receptor positive, unspecified site of breast (HCC) (Z79.811) Aromatase inhibitor use Plan: CHEMO SCHEDULING, BASIC METABOLIC PNL - Recommendations from today's visit: ~ xray of right ribs to evaluate pain, present for 2 weeks and not improving, if unremarkable, will monitor symptoms ~ results of bone density pending, will be in touch with results via [employer] when available - She will active therapy for breast cancer: ~ anastrozole 1 mg daily with intent of completing 7 years of the same (until June 2028) ~ zoledronic acid every 6 months (today, October 07, 2023 is #5 of 6), giving with premeds of zofran / decadron and tylenol and per pt request, give over 30 minutes instead of 15 - Breast imaging no longer indicated - She was without any concerns or discomforts requiring additional follow up at this time - Bone density due every 2 years, next due: September 2025 - Follow up with PCP for routine health maintenance - Follow up in 6 months, anticipate seeing Dr. Barreto back with labs / zometa She has been encouraged to call with any additional questions/concerns in the interim. Understanding verbalized. I spent a total of 35 minutes on the date of the service which included preparing to see the patient, [id number] patient care, completing clinical documentation, obtaining and/or reviewing separately obtained history, performing a medically appropriate examination, counseling and educating the patient/family/caregiver, ordering medications, tests, or procedures, and communicating results to the patient/family/caregiver. Paula Tello CNP cc: Sloan Sherman MD documented in this encounter [facility] 10-07-2023 Note HNO ID: [id number] Author: Paula Tello APRN.LINDSAY Service: ? Author Type: Nurse Practitioner Type: Progress Notes Filed: 10/07/2023 12:51 PM Note Text: Some elements of all sections of this documentation were copied from my previous note of October 05, 2022 and have been re-examined and updated where appropriate. All elements reflect the current assessment and medical decision making of today, October 07, 2023. ATTENDING PHYSICIAN: Dr. Daphnie Barreto IDENTIFICATION: Payal Dos Santos is a 48 year old year old woman with a history of a [id number], ER positive (95%), IN positive (95%), Ofe4unu negatibe (IHC 1+) (oncotype dx recurrence score of 19), Infiltrating ductal carcinoma (grade 2) of the left breast, diagnosed in December 2020. REASON FOR VISIT / CHIEF COMPLAINT: Routine follow up for cancer care SURVIVORSHIP VISIT: September 25, 2021 CURRENT SYSTEMIC THERAPY FOR BREAST CANCER: ~ Anastrozole 1 mg daily ~ Zoledronic acid every 6 months (today, October 07, 2023 is cycle 5 of 6) PAST THERAPY FOR BREAST CANCER: Bilateral mastectomy with left sentinel node biopsy and machine plate stacker to implant reconstruction (Dr. Sigala / Dr. Rodarte; February 14, 2021, 3 cm , 1/2 nodes + with micromets) Docetaxel / Cyclophosphamide X4 (completed on June 03, 2021; received in [place]) EDWARD/BSO (June 2020) Anastrozole 1 mg daily (July 30, 2021 - September 25, 2021) Letrozole 2.5 mg daily (briefly, intolerant) Exemestane (briefly, cost was an issue) Anastrozole 1 mg daily (November 2021 - present, switched briefly to letrozole and then back again) Zoledronic acid (September 25, 2021 - present) INTERVAL HISTORY: Pt presents today by herself. She reports that she is taking her Anastrozole 1 mg daily as prescribed with minimal difficulty. Updates / Concerns noted at time of today's visit are as follows: 1) weight gain since diagnosis, finding it harder to take weight off, notes that she walks regularly but admits it is not an aggressive walk and isn't typically doing other exercises 2) chronic headaches, takes medications for the same, but denies any concerns regarding the same 3) right lower ribs hurt for 2 weeks, unchanged since presentation, denies any respiratory symptoms or trauma 4) continues with skin sensitivity with light touch, unchanged over time She otherwise reports that she physically feels well and is without any new concerns or discomforts that would be suggestive of recurrent or metastatic disease. She specifically denies any concerning nausea, vomiting, cough, shortness of breath, localized bone pain, headaches (no concerning) or diplopia. She reports that she is doing regular breast exams and denies any concerns related to the same. She also confirms that she does have a primary care provider (Sloan Sherman MD), which she verifies she is following up with regularly for her routine health maintenance. REVIEW OF SYSTEMS: The remainder of the review of systems is unremarkable. PERSONAL MEDICAL HISTORY: PAST MEDICAL HISTORY Diagnosis Date Breast cancer (HCC) 02/2021 Delayed emergence from general anesthesia Epilepsy (HCC) 11/22/1997 Hypothyroidism 11/22/2006 PONV (postoperative nausea and vomiting) PERSONAL SURGICAL HISTORY: PAST SURGICAL HISTORY Procedure Laterality Date CYSTOSCOPY 05/26/2022 DR. VERONICA BURGESS [facility] STEREOTACTIC BREAST BIOPSY (HL,SP,MM) 05/20/2015 left breast MASTECTOMY HX 01/2021 bilateral PAST SURGICAL HISTORY OF breast biopsy PAST SURGICAL HISTORY OF 08/2019 [facility] [place] PAST SURGICAL HISTORY OF wisdom teeth extraction - once in high school, 2nd time 2011 PAST SURGICAL HISTORY OF 08/18/2021 breast reconstruction TOTAL ABDOM HYSTERECTOMY 2020 SIGNIFICANT (CANCER) FAMILY MEDICAL HISTORY: Father with colon cancer Paternal grandmother with ovarian cancer Maternal grandfather with prostate cancer Was a referral made to medical genetics? Breast Cancer STAT Panel with reflex to the Common Hereditary Cancers Panel through [facility] was negative for a pathogenic variant PHYSICAL EXAM: Physical exam listed below was completed in it's entirety today, October 07, 2023 and is unchanged from October 05, 2022 except where noted in italics. General appearance: well appearing, alert, in no acute distress Skin: Skin color, texture, turgor normal, no rashes or lesions Head: unremarkable Neck: Supple, no adenopathy Lungs: lungs clear to auscultation, no wheezing or rhonchi Heart: Negative, RRR Breasts: Bilateral breast exam reveals mastectomy with implants in placed, there is no axillary adenopathy, concerning skin changes or palpable lesions Abdomen: Normal abdominal exam, Abdomen soft, non-tender. No masses, organomegaly Extremities:Extremities normal. No deformities or edema. LABS/IMAGING: Lab results from October 06, 2023 have been reviewed and are as follows: Component Latest Ref Rng AND Uni (more content not included)... [facility] 10-07-2023 Nurse Note Additional intake questions: Has the patient had fever, nausea, vomiting, diarrhea, constipation, fatigue for > 1 week? No Does the patient have a decreased appetite? No Does patient want to see a Seafood Preparer? No (yes to any of above refer patient to schedulers for dietitian appointment) ) Does patient have any new or increased numbness or tingling of extremities? No Is patient interested in fertility information? No Does patient need any prescription refills? No Does patient have an advanced directive in place? No Electronically Signed By: Rayne Camarillo MA documented in this encounter [facility] 09-27-2023 Evaluation note Encounter Date Diagnosis Assessment Notes Sep, Well adult exam (ICD-10 - Z00.00) We have discussed the necessity of following up with PCP regularly as well as specialists, as needed. Discussed F/U with dentistry and optometry at least yearly. Discussed all preventative measures/ cancer screenings as applicable to this patient. Emphasized the importance of a reduced fat, low carb diet to promote heart health and controlled blood sugars. Reviewed social history and ensured patient is safe within the home today. Pt denies any abuse of alcohol, nicotine, caffeine or recreational drugs. I have ensured patient is of stable mental and physical health today. We have discussed appropriate F/U schedule as well as blood work and vaccinations that apply. All questions answered and patient is sent home pleased, without concerns. Sep, Recurrent maxillary sinusitis (ICD-10 - J01.01) Sinus infections can be triggered by a secondary infection from a viral URI or even seasonal allergies. Take medications as directed. Use saline nasal spray prior to presciption nasal spray. Take medications as directed, and complete all doses of medication even if you start to feel better. Patient advised to follow up with PCP if symptoms persist or worsen. Patient verbalized understanding and agreement with treatment plan. Sep, Screening for colon cancer (ICD-10 - Z12.11) Sep, Family history of malignant neoplasm of digestive organs (ICD-10 - Z80.0) recommended colonoscopy [facility] 10-24-2023 Miscellaneous Notes* Telephone Encounter - Nola Liz RN - 09/14/2023 9:17 AM EDT Pt is asking for labs to be done before her follow up in September for her Thyroid. Pt would like toget them done on 10/06/2023. Pended below, Please advise. * Telephone Encounter - Sussy Bazzi - 09/14/2023 8:39 AM EDT Patient calling asking if you could please put in lab orders for her upcoming appointment on 10/19/23. She already has an appointment to have lab work on 10/06/23 and would like to get it all done atthe same time. Thank you [facility] Evaluation note* Encounter Date Diagnosis Assessment Notes Treatment Notes Treatment Clinical Notes Aug, Recurrent maxillary sinusitis (ICD-10 - J01.01) Finish medications. ER if swelling in neck worsens. Stay hydrated and rest. [facility] 01-11-2023 Miscellaneous Notes* Telephone Encounter - Nola Liz RN - 12/02/2022 9:26 AM EST NIDIA: 10/13/2022 Future OV: 04/06/2023. Pt asking for a refill/new prescription for her Anastrozole. Pended below, Please advise. * Telephone Encounter - Jessica Chino APRN.CNP - 12/02/2022 9:13 AM EST Please send refill request for ANASTROZOLE to [facility] Patient's request for medication is as follows Requested Prescriptions Signed Prescriptions Disp Refills ARMOUR THYROID 120 mg tablet 90 tablet 3 Sig: Take 1 tablet by mouth once daily. Authorizing Provider: JESSICA CHINO Refused Prescriptions Disp Refills anastrozole (ARIMIDEX) 1 mg tablet 90 tablet 3 Sig: Take 1 tablet by mouth once daily. Refused By: JESSICA CHINO Reason for Refusal: Patient should contact Prescriber first Order entered - please phone pharmacy and notify patient. Jessica Chino APRN.CNP * Telephone Encounter - Linnette Brady - 12/02/2022 8:18 AM EST Patient has been identified by name and date of : Yes Requested Prescriptions Pending Prescriptions Disp Refills anastrozole (ARIMIDEX) 1 mg tablet 90 tablet 3 Sig: Take 1 tablet by mouth once daily. ARMOUR THYROID 120 mg tablet 90 tablet 3 Sig: Take 1 tablet by mouth once daily. RX INSTRUCTIONS: Patient aware RX will be sent to pharmacy. No need to notify patient. Linnette Brady documented [facility] Nurse Note* Suha Lemus RN - 10/05/2022 2:30 PM EST Additional intake questions: Has the patient had fever, nausea, vomiting, diarrhea, constipation, fatigue for > 1 week? Yes, constipation (day of last BM today) Does the patient have a decreased appetite? No Does patient want to see a Seafood Preparer? No (yes to any of above refer patient to schedulers for dietitian appointment) ) Does patient have any new or increased numbness or tingling of extremities? No Is patient interested in fertility information? No Does patient need any prescription refills? No Does patient have an advanced directive in place? Yes, copies are in [facility] documented in this encounter[facility]11[facility] History of Present illness Narrative* Paula Tello APRN.[facility] - 10/05/2022 2:18 PM EST Some elements of all sections of this documentation were copied from my previous note of April 01, 2022 and have been re-examined and updated where appropriate. All elements reflect the current assessment and medical decision making of today, October 05, 2022. ATTENDING PHYSICIAN: Dr. Daphnie Barreto IDENTIFICATION: Payal Dos Santos is a 47 year old year old woman with a history of a [id number], ER positive (95%), IN positive (95%), Tns2jdv negatibe (IHC 1+) (oncotype dx recurrence score of 19), Infiltrating ductal carcinoma (grade 2) of the left breast, diagnosed in December 2020. REASON FOR VISIT / CHIEF COMPLAINT: Routine follow up for cancer care SURVIVORSHIP VISIT: September 25, 2021 CURRENT SYSTEMIC THERAPY FOR BREAST CANCER: Anastrozole 1 mg daily PAST THERAPY FOR BREAST CANCER: Bilateral mastectomy with left sentinel node biopsy and machine plate stacker to implant reconstruction (Dr. Sigala / Dr. Rodarte; February 14, 2021, 3 cm , 1/2 nodes + with micromets) Docetaxel / Cyclophosphamide X4 (completed on June 03, 2021; received in [place]) EDWARD/BSO (June 2020) Anastrozole 1 mg daily (July 30, 2021 - September 25, 2021) Letrozole 2.5 mg daily (briefly, intolerant) Exemestane (briefly, cost was an issue) Anastrozole 1 mg daily (November 2021 - present) INTERVAL HISTORY: Pt presents today by herself. She reports that she is taking her Anastrozole 1 mg daily as prescribed with minimal difficulty. Updates / Concerns noted at time of today's visit are as follows: 1) more sensitive to the cold than she remembers she was prior to the chemotherapy 2) heal pain persists, wearing some arch supports at night (which wraps around the foot, copper fit brand), she has only been doing this for a couple of weeks and has found that these help 3) pelvic floor PT has helped with bladder concerns and feeling of constant UTI's has resolved 4) chronic headaches, takes ajovy once monthly which helps but she continues to have them averagingabout once weekly but notes that the sumatriptan helps with the as needed concerns / discomforts She otherwise reports that she physically feels well and is without any new concerns or discomfortsthat would be suggestive of recurrent or metastatic disease. She specifically denies any concerningnausea, vomiting, cough, shortness of breath, localized bone pain or diplopia. She reports that she is doing regular breast exams and denies any concerns related to the same. Shealso confirms that she does have a primary care provider (Sloan Sherman MD), which she verifies she is following up with regularly for her routine health maintenance. REVIEW OF SYSTEMS: The remainder of the review of systems is unremarkable. PERSONAL MEDICAL HISTORY: PAST MEDICAL HISTORY Diagnosis Date Breast cancer (HCC) 02/2021 Delayed emergence from general anesthesia Epilepsy (HCC) 11/22/1997 Hypothyroidism 11/22/2006 PONV (postoperative nausea and vomiting) PERSONAL SURGICAL HISTORY: PAST SURGICAL HISTORY Procedure Laterality Date CYSTOSCOPY 05/26/2022 DR. VERONICA B[facility]ESS [facility] M[facility]M STEREOTACTIC BREAST BIOPSY (HL,SP,MM) 05/20/2015 left breast MASTECTOMY HX 01/2021 bilateral PAST SURGICAL HISTORY OF breast biopsy PAST SURGICAL HISTORY OF 08/2019 [facility] PAST SURGICAL HISTORY OF wisdom teeth extraction - once in high school, 2nd time 2011 PAST SURGICAL HISTORY OF 08/18/2021 breast reconstruction TOTAL ABDOM HYSTERECTOMY 2020 SIGNIFICANT (CANCER) FAMILY MEDICAL HISTORY: Father with colon cancer Paternal grandmother with ovarian cancer Maternal grandfather with prostate cancer Was a referral made to medical genetics? Breast Cancer STAT Panel with reflex to the Common Hereditary Cancers Panel through [facility] was negative for a pathogenic variant PHYSICAL EXAM: Physical exam listed below was completed in it's entirety today, October 05, 2022 and is unchangedfrom April 01, 2022 except where noted in italics. General appearance: well appearing, alert, in no acute distress Skin: Skin color, texture, turgor normal, no rashes or lesions Head: unremarkable Neck: Supple, no adenopathy Lungs: lungs clear to auscultation, no wheezing or rhonchi Heart: Negative, RRR Breasts: Bilateral breast exam reveals mastectomy with implants in placed, there is no axillary adenopathy, concerning skin changes or palpable lesions Abdomen: Normal abdominal exam, Abdomen soft, non-tender. No masses, organomegaly Extremities:Extremities normal. No deformities or edema. LABS/IMAGING: Lab results from October 05, 2022 have been reviewed and are as follows: Component Latest Ref Rng & Units 07/07/2022 10/05/2022 WBC 3.70 - 11.00 k/uL 5.23 RBC 3.90 - 5.20 m/uL 4.05 Hemoglobin 11.5 - 15.5 g/dL 12.1 Hematocrit 36.0 - 46.0 % 36.1 MCV 80.0 - 100.0 fL 89.1 MCH 26.0 - 34.0 pg 29.9 MCHC 30.5 - 36.0 g/dL 33.5 RDW-CV 11.5 - 15.0 % 11.8 Platelet Count 150 - 400 k/uL 284 MPV 9.0 - 12.7 fL 9.5 Neut% % 57.7 Abs Neut (ANC) 1.45 - 7.50 k/uL 3.02 Lymph% % 33.3 Abs Lymph 1.00 - 4.00 k/uL 1.74 Sevier% % 6.9 Abs Sevier <0.87 k/uL 0.36 Eosin% % 1.1 Abs Eosin <0.46 k/uL 0.06 Baso% % 0.8 Abs Baso <0.11 k/uL 0.04 Immature Gran % % 0.2 IMMATURE GRANS (ABS) <0.10 k/uL <0.03 NRBC /100 WBC 0.0 Absolute nRBC <0.01 k/uL <0.01 DTYPE Auto Glucose 74 - 99 mg/dL 102 (H) 115 (H) BUN 7 - 21 mg/dL 13 15 Creatinine 0.58 - 0.96 mg/dL 0.89 0.95 Sodium 136 - 144 mmol/L 142 142 Potassium 3.7 - 5.1 mmol/L 4.3 4.1 Chloride 97 - 105 mmol/L 105 106 (H) CO2 22 - 30 mmol/L 28 26 Anion Gap 9 - 18 mmol/L 9 10 Calcium 8.5 - 10.2 mg/dL 10.0 9.6 eGFR >=60 mL/min/1.73m 81 74 Routine breast imaging no longer indicated secondary to bilateral mastectomy with implant reconstruction US left breast (July 31, 2022): There is no sonographic evidence of malignancy. Multiple areas of oily cysts/fat necrosis extending within the patient's palpable areas/area of pain, which are benign. Findings are compatible with the patient's history of fat injections. Clinical follow-up is recommended. Bone density (September 25, 2021): normal bone density results, with the lowest t-score being 0.0 IMPRESSION: [id number], ER positive (95%), IN positive (95%), Gqf2cce negatibe (IHC 1+) (oncotype dx recurrence score of 19), Infiltrating ductal carcinoma (grade 2) of the left breast, diagnosed in December 2020, s/p bilateral mastectomy with left sentinel node procedure (with subsequent implant exchange), chemotherapy with TC X4, EDWARD/BSO, started AI in July 2021, held in early September for side effectsand will change to new AI today, October 06, 2021; initiated zoledronic acid September 25, 2021, no evidence of disease recurrence at the time of today's exam. PLAN: After evaluation and review of the ongoing treatment plan, the following referral/recommendations have been made. (Z08) Encounter for routine cancer follow-up (primary encounter diagnosis) (C50.912, Z17.0) Malignant neoplasm of left breast in female, estrogen receptor positive, unspecified site of breast (HCC) (Z79.811) Aromatase inhibitor use Plan: CHEMO SCHEDULING, BASIC METABOLIC PNL - She will continue anastrozole daily with intent of completing a minimum 5 years of the same (until June 2026 and up to 7 years (June 2028)) - Continue with zoledronic acid every 6 months (due today, October 05, 2022), will add in premeds of zofran / decadron and tylenol and per pt request, give over 30 minutes instead of 15 - Breast imaging no longer indicated - She was without any concerns or discomforts requiring additional follow up at this time - Bone density due every 2 years, next due: September 2023 - Follow up with PCP for routine health maintenance - Follow up in 6 months, anticipate seeing Dr. Barreto back with labs / zometa She has been encouraged to call with any additional questions/concerns in the interim. Understanding verbalized. I spent a total of 25 minutes on the date of the service which included preparing to see the patient, [id number] patient care, completing clinical documentation, obtaining and/or reviewing separately obtained history, performing a medically appropriate examination, and counseling andeducating the patient/family/caregiver. Paula Tello CNP cc: Sloan Sherman MD documented in this encounter[facility]11[facility]22 Miscellaneous Notes* Telephone Encounter - Monica Calle MA - 10/02/2022 2:03 PM EST Requester: Patient Patients last Endocrinology visit occurred 04/09/2022. Follow-up evaluation has been established none. Requested Prescriptions Pending Prescriptions Disp Refills ARMOUR THYROID 120 mg tablet 90 tablet 3 Sig: Take 1 tablet by mouth once daily. If patient is due for an appointment please route to provider for refill consideration and also to the endo scheduling pool. PSS NOTE: Patient needs scheduled appointment No * Telephone Encounter - Christina Purcell Pss - 10/02/2022 11:18 AM EST Patient calling for update on the status of her Amour Thyroid. Please call patient. She said that she needs a new prescription sent to [facility]. Please assist. Patient's insurance runs out next week. * Telephone Encounter - Darshana Mitchell - 10/01/2022 12:15 PM EST Patient called to check on refill status. Please advise. * Telephone Encounter - Darshana Mitchell - 09/30/2022 8:33 AM EST Patient requested prior authorization with a new prescription. Patient has been identified by name and date of : Yes Requested Prescriptions Pending Prescriptions Disp Refills MATA THYROID 120 mg tablet 90 tablet 3 Sig: Take 1 tablet by mouth once daily. RX INSTRUCTIONS: Patient aware RX will be sent to pharmacy. No need to notify patient. Thank you, Darshana Mitchell documented in this encounterSy[facility]11-10-2022 Miscellaneous Notes* Telephone Encounter - Maria C Mckinnon MA - 10/01/2022 1:29 PM EST Received approval of coverage for patients [place] Thyroid from [employer]. Coverage good from 09/29/22 through 09/29/23. [place] Reference # [id number]. Sent document to scanning Maria C Mckinnon MA documented in this encounterSy[facility] Center2022 History of Present illness Narrative* Linnette Jaramillo Pss - 08/11/2022 11:10 AM EDT POPULATION HEALTH NAVIGATION OUTREACH Action/ Patient Outreach: Spoke with patient to schedule in RST for Physical and Occupational therapy. Pt declined RST Consult as she is getting locally in her area. Pt identified by name and : YES, via phone Outreach Outcome/Action Spoke to patient or caregiver: Patient declined Did you use a PCP flex slot to schedule this appointment? No Reason for Outreach Care Gap or Scheduling/Wellness visits Payer: Payor: SINDI / Plan: [employer] PPO / Product Type: PPO / Care Gap Reviewed:: Specialty Scheduling Reminder: Reminder note to check Health Maintenance for items below Health Maintenance items due: HEPATITIS B(1 of 3 - 3-dose series) due on 1974 ANNUAL PCP TEAM CHRONIC DISEASE VISIT Never done HEPATITIS C SCREENING Never done HIV SCREENING Never done DTAP,TDAP,TD(1 - Tdap) Never done HPV TESTING Never done MAMMOGRAM due on 11/11/2018 LIPID SCREEN Never done COLORECTAL CANCER SCREENING Never done PAP TESTING due on 06/22/2021 INFLUENZA(1) due on 07/23/2022 Message Sent to Practice: No Navigation Signature: Linnette Jaramillo Pss August 11, 2022 11:11 AM documented in this encounterSycam[facility] Center09-09-2022 Nurse Note* Rayne Camarillo MA - 07/31/2022 9:16 AM EDT Additional intake questions: Has the patient had fever, nausea, vomiting, diarrhea, constipation, fatigue for > 1 week? No Does the patient have a decreased appetite? No Does patient want to see a Seafood Preparer? No (yes to any of above refer patient to schedulers for dietitian appointment) ) Does patient have any new or increased numbness or tingling of extremities? No Is patient interested in fertility information? No Does patient need any prescription refills? No Does patient have an advanced directive in place? Yes, copies are in Epic Electronically Signed By: Rayne Camarillo MA documented in this encounterSycamore [facility] Center09-09-2022 History of Present illness Narrative* Roxana Hoang APRN.[facility] - 07/31/2022 9:00 AM EDT ATTENDING PHYSICIAN: Dr. Daphnie Barreto IDENTIFICATION: Payal Dos Santos is a 46 year old woman with a [id number], ER positive, IN positive, Vvq8ove negative (oncotype dx recurrence score of 19), invasive carcinoma (grade 2) of the left breast, diagnosed in 12/2020. She is presenting today for evaluation of left breast lump. CURRENT SYSTEMIC THERAPY FOR BREAST CANCER: Anasterozole - 07/2021-present Zoledronic acid every 6 months PAST THERAPY FOR BREAST CANCER: Bilateral mastectomy with left SLBNx with implant reconstruction Adjuvant TC EDWARD/BSO INTERVAL HISTORY: Payal presents today and reports that she is doing okay. She notes that she found a lump about a week ago to left upper outer part of her breast. She endorses some pain in the area as well. She recognizes that the fat transfer could cause these lumps. She inquires about getting routine imaging. Shealso notes bilateral shoulder pain. REVIEW OF SYSTEMS: The remainder of the review of systems is unremarkable. PHYSICAL EXAMINATION: General appearance: well appearing, alert, in no acute distress Skin: Skin color, texture, turgor normal, no rashes or lesions Head: unremarkable Neck: Supple, no adenopathy Lungs: lungs clear to auscultation, no wheezing or rhonchi Heart: Negative, RRR Breasts: Bilateral breast exam reveals Mastectomy surgical scar, there is no axillary adenopathy, concerning skin changes or palpable lesions. Abdomen: Normal abdominal exam, Abdomen soft, non-tender. No masses, organomegaly Extremities:Extremities normal. No deformities or edema. LABS/IMAGING: No labs done at the time of today's exam, diagnostic mammogram done on 07/31/2022 was unremarkable, last bone density test was on 09/25/2021 and revealed normal bone density results IMPRESSION: [id number], ER positive, IN positive, Tjw7xjf negative (oncotype dx recurrence score of 19), invasive carcinoma (grade 2) of the left breast, diagnosed in 12/2020 s/p bilateral mastectomy with left SLNBx, adjuvant chemotherapy, tolerating her treatment of anastrozole and zometa presenting today with a new left breast lump. PLAN: After evaluation and review of the ongoing treatment plan, the following referral/recommendations have been made. (C50.912) Invasive ductal carcinoma of breast, female, left (HCC) (primary encounter diagnosis) (Z79.811) Aromatase inhibitor use (M25.50) Arthralgia of multiple sites - Encouraged monthly self breast exams - Continue anastrozole with intent to complete at least 5 years (07/2026) - Mammogram no longer indicated - Bone Density Due: 09/2023 - Discussed that routine imaging is not indicated for breast or whole body but that there is a low threshold if symptoms should arise to get any imaging - Follow up with Paula Tello CNP in 09/2022 as previously scheduled - Encouraged to call with any questions or concerns I spent a total of 30 minutes on the date of the service which included preparing to see the patient, [id number] patient care, completing clinical documentation, obtaining and/or reviewing separately obtained history, performing a medically appropriate examination, counseling and educating the pat ient/family/caregiver, ordering medications, tests, or procedures, communicating with other HCPs (not separately reported), independently interpreting results (not separately reported), communicatingresults to the patient/family/caregiver, and care coordination (not separately reported). Roxana Hoang APRN.LINDSAY documented in this encounterSycamore Medical Center09-09-2022 History of Present illness Narrative* RT Romina(R) - 07/31/2022 8:10 AM EDT Radiology Service Progress Note PATIENT NAME: Payal Dos Santos DATE OF SERVICE: July 31, 2022 TIME: 8:49 AM PATIENT IDENTITY VERIFICATION COMPLETED USING TWO (2) IDENTIFIERS: Name and Date of confirmedby patient verbally. FALL SCREENING: Has the patient had 2 falls in the last year or 1 fall with injury or currently using an Ambulatory Assistive Device (Walker, Cane, Wheelchair, Crutches, etc.)? No PATIENT GENDER DATA: Female. status: : No status: NO. PATIENT RELEVANT IMPLANT DATA REVIEWED: Yes RADIOLOGY DEPARTMENT: Mammography PERIPHERAL IV DATA: Not applicable SIGNED BY: RT Romina(R) July 31, 2022 8:49 AM documented in this encounterSycamore Medical Center09-07-2022 Miscellaneous Notes* Telephone Encounter - Brit Brooks RN - 07/29/2022 12:47 PM EDT US and provider visit have been arranged for Wednesday. Patient updated and agreeable to appointment times. Encouraged patient to refer to [facility] for appointment details. Brit Brooks RN * Telephone Encounter - Brit Brooks RN - 07/29/2022 11:37 AM EDT Per review with Dr Barreto, will plan US of the area and provider visit to further evaluate. Message left with imaging department to coordinate. Patient updated via phone, she is available to follow-upand states any day/time will work for her. Will update patient once arrangements are finalized. Brit Brooks RN * Telephone Encounter - Angelina Desai RN - 07/28/2022 10:34 AM EDT Payal shares lump in left breast / axilla area she discussed with Dr. Barreto in late June has increased in size and pain / discomfort has increased. She notes when she is laying on her left side shefeels a constant dull ache. She has not taken anything for this. Will review with MD an notify pt of recommendation. * Telephone Encounter - Lianet Dunaway [facility] - 07/28/2022 9:36 AM EDT Payal Terrence Neftali is calling Daphnie Barreto MD today regarding Care Coordination, has lump on left side between breast and arm pit. Patient has been identified by name and birthdate. Duration of symptoms: 2 weeks Requesting response back: call on cell [phone] (home) [phone] (cell) Lianet Dunaway [facility] July 28, 2022 documented in this encounterSycamore Medical Center08-24-2022 Miscellaneous Notes* Telephone Encounter - Brit Brooks RN - 07/15/2022 11:07 AM EDT [facility] contacted, Rx clarified with pharmacist via phone. No further needs identified, they will fill today. Brit Brooks RN * Telephone Encounter - Mikki Romero - 07/15/2022 10:24 AM EDT Payal Dos Santos('s) pharmacy is calling Daphnie Barreto MD today regarding Medication Problem Patient has been identified by name and birthdate. Needs instruction clarification on lidocaine Duration of symptoms: N/A Requesting response back: [phone] (home) [phone] (cell) Mikki Romero July 15, 2022 documented in this encounterSycamore Medical Center08-23-2022 History of Present illness Narrative* Daphnie Barreto MD - 07/14/2022 4:28 PM EDT IDENTIFICATION: Payal Dos Santos is a 46 year old surgically postmenopausal woman with a [id number] G2 ER-positive, IN-positive, HER2-negative (Oncotype Dx RS of 19) left breast cancer diagnosed in December 2020 presenting today for follow-up. She was treated with bilateral mastectomy and left sentinel lymph node biopsy with bilateral implant reconstruction, adjuvant docetaxel and cyclophosphamide chemotherapy, EDWARD/BSO in June 2021 and initiated anastrozole in July 2021 with addition of zoledronic acid in September 2021. Due to side effects, anastrozole was changed to letrozole and then to exemestane and, due to cost, back to anastrozole. CURRENT SYSTEMIC THERAPY FOR BREAST CANCER: anastrozole 1 mg PO daily and zoledronic acid (every 6 months). INTERVAL HISTORY: She is experiencing a fair amount of ongoing arthralgias along with bilateral foot pain including in her arches and heel areas; she has been wearing supportive shoes and arch supports. She is concerned about her weight/weight distribution which has changed. She has had a lot of pelvic and geniturinary symptoms since her hysterectomy and BSO; she is pelvic floor therapy which shefeels is helping. She continues to have pain with intercourse; she is using Replense, lubricants and a dilator. She is exercising including walking and using and eliptical machine. She is also experiencing constipation. REVIEW OF SYSTEMS: The remainder of the review of systems is unremarkable. PERTINENT PMH/FH/SH: She is s/p hysterectomy and BSO. She has a h/o hypothyroidism, migraines and seizure disorder (well controlled since 2001). There is no known breast cancer history in the family.Her father had colon cancer, paternal grandmother had ovarian cancer and maternal grandfather had pr ostate cancer. 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 EXAMINATION: Blood pressure 125/73, pulse 78, temperature 37.1 C (98.7 F), temperature source Oral, resp. rate 18, weight 85 kg (187 lb 8 oz), last menstrual period 04/14/2021, SpO2 100 %. HEENT examination is unremarkable. No adenopathy is appreciated in the cervical or supraclavicular regions. The heart is regular. Lung examination is clear bilaterally. Examination of the left reconstructed breast reveals no evidence of local recurrence. The right reconstructed breast is free of concerning masses. No axillary adenopathy is appreciated. The abdomen is soft and nontender. There is no significant edema of the extremities. DATA: Bone density study 09/25/21 was normal (lowest T-score 0) IMPRESSION: [id number] G2 ER-positive, IN-positive, HER2-negative (stage Ib; Oncotype RS 19) left breast cancer, s/p bilateral mastectomy and left sentinel lymph node biopsy, adjuvant chemotherapy, BSO and ongoing anastrozole; clinically free of signs and symptoms of recurrent disease. PLAN: She will continue anastrozole 1 mg PO daily for now. We discussed the option of switching to tamoxifen at some point if side effects are unacceptable, though it would be preferable to get at least 2 years of AI treatment in. We discussed symptom management and I have given her a prescription for topical lidocaine to apply at the vaginal entrance prior to intercourse. We discussed diet and exercise. She will next be due for zoledronic acid in about 3 months and we will schedule follow up with Paula Tello CNP at that time. She had the opportunity to have her questions addressed. I spent a total of about 40 minutes on the date of the service which included preparing to see the patient, meme-te-fjmn patient care, completing clinical documentation, performing a medically appropriate examination, counseling and educating the patient/family/caregiver, and ordering medications, tests, or procedures. Daphnie Barreto MD (Elements copied from my note dated 01/15/22 have been reviewed and updated where appropriate, and all reflect current assessment and medical decision making from today's encounter, July 14, 2022) documented in this encounterSycamore Medical Center08-23-2022 Nurse Note* Rayne Camarillo MA - 07/14/2022 4:26 PM EDT Additional intake questions: Has the patient had fever, nausea, vomiting, diarrhea, constipation, fatigue for > 1 week? Yes, constipation Does the patient have a decreased appetite? No Does patient want to see a Seafood Preparer? No (yes to any of above refer patient to schedulers for dietitian appointment) ) Does patient have any new or increased numbness or tingling of extremities? No, however pain in bilateral feet since treatment Is patient interested in fertility information? No Does patient need any prescription refills? No Does patient have an advanced directive in place? Yes, copies are in Epic Electronically Signed By: Rayne Camarillo MA documented in this encounterSycamore Medical Center08-22-2022 Miscellaneous Notes* Telephone Encounter - Maria C Mckinnon MA - 07/13/2022 8:27 AM EDT Sent providers message via my chart,also advised on date labs can be completed. Maria C Mckinnon MA * Telephone Encounter - Jessica Chino APRN.CNP - 07/09/2022 5:49 PM EDT Patient is due for virtual visit follow up in September, since she is feeling well/asymptomatic - I will just put labs for repeat in September prior to follow up. D * Telephone Encounter - Nola Liz RN - 07/09/2022 1:51 PM EDT Called and spoke with pt regarding recommendations from Jessica Chino CNP for switching from ArmourThyroid to Synthroid and Cytomel instead for better control of thyroid hormones. Per pt, If she (Jessica) thinks that will work better I am willing to try it or a lower dose of [place] . I was on Synthroid and Cytomel previously and the Synthroid did nothing for me and I was at the highest dose of Cytomel and still needed more . I am willing to try whatever Jessica recommends and thinks is best . Pt denies any symptoms of overactive thyroid such as heart palpatations, insomnia, hair loss, anxiety. Pt asking if repeat thyroid labs would be needed in 6 weeks after change/dose adjustment of medication. Pended below. Please advise. * Telephone Encounter - Nola Liz RN - 07/08/2022 9:01 AM EDT Component Latest Ref Rng & Units 07/07/2022 Glucose 74 - 99 mg/dL 102 (H) BUN 7 - 21 mg/dL 13 Creatinine 0.58 - 0.96 mg/dL 0.89 Sodium 136 - 144 mmol/L 142 Potassium 3.7 - 5.1 mmol/L 4.3 Chloride 97 - 105 mmol/L 105 CO2 22 - 30 mmol/L 28 Anion Gap 9 - 18 mmol/L 9 Calcium 8.5 - 10.2 mg/dL 10.0 eGFR >=60 mL/min/1.73m 81 TSH 0.270 - 4.200 mIU/L 0.396 Free T4 0.9 - 1.7 ng/dL 0.9 Free T3 2.3 - 4.1 pg/mL 6.6 (H) Still awaiting Vitamin D results (in process). [facility]: 04/09/2022. Pt currently taking: [place] Thyroid 120 mg tablet- Take 1 tablet by mouth once daily. Vitamin D3 5,000 international unit(s) one capsule by mouth once daily. Pt asking if based on thyroid lab results she needs a follow up appointment as discussed at [facility] or not? Please advise. documented in this encounterSycamore Medical Center08-08-2022 Miscellaneous Notes* Telephone Encounter - Amber Narvaez - 06/29/2022 11:02 AM EDT Call to patient, patient notified that OT and PT orders were successfully faxed to number provided ([phone]). Fax confirmation has been scanned into patients chart. Amber Narvaez * Telephone Encounter - Giovana Kasper MD - 06/27/2022 9:34 AM EDT Pls fax both the OT and PT order to fax given by patient. Marked urgent due to delay thanks * Telephone Encounter - Asha Tinoco RN - 06/25/2022 9:11 AM EDT Needs outside PT order New order pending - [facility] 10/15/2021 The following diagnoses were relevant to this visit: (N94.10) Dyspareunia in female (primary encounter diagnosis) (E89.41) Surgical menopause, symptomatic (C50.912) Invasive ductal carcinoma of breast, female, left (HCC) (G40.909) Nonintractable epilepsy without status epilepticus, unspecified epilepsy type (HCC) (E03.9) Hypothyroidism, unspecified type (M62.89) High-tone pelvic floor dysfunction in female Regarding sexual health, discussed: -Nonrx and rx options (hormonal & nonhormonal) -Reading references -Devices -Impact of her rxs on symptoms -PFPT evaluation -Vaginal health -Hormonal health -Theoretical concerns about use of hormones with her PMH, along with published evidence to date regarding safety. Regarding menopause and perimenopause, we discussed the following: -Vasomotor symptom management -Safety and efficacy of non-hormonal options I think the pelvic floor dysfunction may be a big contributor to her pain. After discussion, she opted for no medication treatment at this time Follow-up within 3-4 months. Can cancel if symptoms resolve, but will need yearly reassessment withme if I will be prescribing her medications. If usual medical providers feel comfortable refilling meds, can see me as needed. Office Visit on 10/15/21 CONSULT TO PHYSICAL THERAPY Giovana Kasper MD documented in this encounterSycamore Medical Center08-04-2022 Miscellaneous Notes* Telephone Encounter - Sharon Hanley RN - 06/25/2022 12:22 PM EDT See MyChart. Already pending. Sharon Hanley RN * [facility] 06/25/2022 8:38 AM EDT Patient of Dr Kasper Want new PT referral Patient sent in a [employer] chart message with details, Patient can be reached at [phone] Shruthi Lynch documented in this encounterSycamore Medical Center07-05-2022 History of Present illness Narrative* Veronica Anand MD - 05/26/2022 4:22 PM EDT Images from the original note were not included. [facility] NEW PATIENT CLINIC NOTE SERVICE DATE: 05/26/2022 SERVICE TIME: 4:22 PM NAME: Payal Dos Santos REFERRED BY: Consultation requested by Juliane Hayes for an opinion regarding bladder pain. My final recommendations will be communicated back to the requesting physician by way of shared medical record or letter via US mail. CHIEF COMPLAINT: pelvic pressure HISTORY OF PRESENT ILLNESS: Payal Dos Santos is a 46 year old F with PMH including breast cancer s/p BL mastectomy with reconstruction, chemotherapy and now on anastrazole ands/p EDWARD 2020 presenting with pelvic pressure. The patient reports feeling like a small child is sitting on my bladder. Also notes bladder pain and burning with spicy and acidic foods. Urinates every 2 hours. +pain with intercourse, sometimes has to stop. Using lube. Tried oxybutynin as prescribed by Juliane and developed severe muscle aches. Also with severe constipation, often with only one good BM per week. Started miralax with good effect but constipation resumed when she stopped the med. She is doing PFPT, about 6 sessions so far, with minimal improvement. PAST MEDICAL HISTORY PAST MEDICAL HISTORY Diagnosis Date Breast cancer ([facility]) 02/2021 Delayed emergence from general anesthesia Epilepsy (HCC) 11/22/1997 Hypothyroidism 11/22/2006 PONV (postoperative nausea and vomiting) PAST SURGICAL HISTORY PAST SURGICAL HISTORY Procedure Laterality Date CYSTOSCOPY 05/26/2022 DR. VERONICA BURGESS [facility] MAMM STEREOTACTIC BREAST BIOPSY (HL,SP,MM) 05/20/2015 left breast MASTECTOMY HX 01/2021 bilateral PAST SURGICAL HISTORY OF breast biopsy PAST SURGICAL HISTORY OF 08/2019 D&C PAST SURGICAL HISTORY OF wisdom teeth extraction - once in high school, 2nd time 2011 PAST SURGICAL HISTORY OF 08/18/2021 breast reconstruction TOTAL ABDOM HYSTERECTOMY 2020 FAMILY HISTORY FAMILY HISTORY Problem Relation Age of Onset Cancer Father rectal Colon Cancer Father 65 Prostate Cancer Maternal Grandfather Osteoporosis Maternal Grandmother other (heart attack) Paternal Grandfather 60 Ovarian cancer Paternal Grandmother Stroke Paternal Grandmother Anesthesia Problems No Family History SOCIAL HISTORY Social History Tobacco Use Smoking status: Never Smoker Smokeless tobacco: Never Used Vaping Use Vaping Use: Never used Substance Use Topics Alcohol use: Yes Comment: Rarely Drug use: No MEDICATIONS: Current Outpatient Medications Medication Sig AJOVY AUTOINJECTOR 225 mg/1.5 mL auto-injector ondansetron (ZOFRAN) 8 mg tablet Take 1 tablet by mouth every 8 hours as needed for nausea/vomiting. anastrozole (ARIMIDEX) 1 mg tablet Take 1 tablet by mouth once daily. ARMOUR THYROID 120 mg tablet Take 1 tablet by mouth once daily. multivit-min/vit C/herb no.124 (AIRBORNE GUMMY ORAL) Take by mouth. lamoTRIgine (LAMICTAL) 100 mg tablet Take 100 mg by mouth twice daily. SUMAtriptan 100 mg tablet Take 100 mg by mouth as needed. Take one tablet at onset of headache ,canrepeat one time in 2 hours baclofen vaginal suppository 10 mg (CPD) Use 1 Suppository vaginally twice daily as needed. Unwrap and insert one suppository as directed. No current facility-administered medications for this visit. 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 05/26/22 1538 BP: 120/84 Pulse: 101 Temp: 36.6 C (97.8 F) TempSrc: Temporal Weight: 86.2 kg (190 lb) Body mass index is 25.77 kg/m . General: No acute distress, well appearing Abdomen: Soft, NT, nondistended Extremities: Normal range of motion, no LE edema : External genitalia: Normal appearing, mild atrophy, no skin lesions Vestibule: Nontender, normal appearing Urethra: Normal appearing urethral meatus, no masses, nontender, no diverticulum, minimal hypermobility Bladder: mild bladder neck tenderness Vagina: Normal appearing, minimal discharge, no cysts or masses. Pelvic Floor Musculature: 3/5 tenderness throughout Anus and perineum grossly nl POP-Q: Prolapse noted: No PVR: 0 mL via bladder US DATA: Labs UA: Normal ASSESSMENT and PLAN: 46 year old female with hypertonic pelvic floor dysfunction and ?mild IC 1. High-tone pelvic floor dysfunction in female - ICD9: 629.89, ICD10: M62.89 (primary diagnosis) 2. Screening for genitourinary condition - ICD9: V81.6, ICD10: Z13.89 Continue PFPT Vaginal baclofen suppositories, discussed pelvic floor injections if no significant improvement with PT Continue daily Miralax Trial of OTC aloe vera, D-mannose, etc. FU 3 mo All of the patients questions and concerns were discussed in detail. Veronica Anand MD [facility] * Veronica Anand MD - 05/26/2022 3:22 PM EDT CYSTOSCOPY Sign In History and Physical Exam reviewed and is unchanged. Primary Diagnosis: Bladder pain Time Out: Team Confirms the Correct Patient, Correct Procedure; Cystoscopy Affirmation of Time Out: YES CYSTOSCOPY PROCEDURE Procedure Details ANESTHETICS: 2% lidocaine gel was instilled in the urethra The flexible cystoscope was inserted atraumatically into the bladder and carmona cystourethroscopy was performed. FINDINGS Urethra: Normal appearing, no masses, stricture, foreign body or diverticulum Bladder: Normal appearing, ureteral orifices orthotopic bilaterally, no masses or concerning lesions, no foreign body, no trabeculation or diverticuli. Retroflexion performed showing normal appearingbladder neck. COMPLICATIONS: None Post Procedure Evaluation: 46 yo with pelvic pain and cystitis symptoms s/p cystoscopy today showing normal findings RECOMMENDATIONS: Discussed findings with patient. Veronica nAand MD [place]/Urology [facility]ly [facility], [facility] [place] documented in this encounterSycamore Medical Center07-05-2022 Procedure note* Rebeca Kasper Ma - 05/26/2022 3:50 PM EDT UNIVERSAL PROTOCOL / SAFETY CHECKLIST Procedure to be Performed: Cystoscopy Procedure Sign In: A Moment of CARE was completed. Personnel directly involved with the procedure wore the appropriate PPE (Personal Protective Equipment). Special equipment: CYSTOSCOPE Patient/Surrogate Stated/Verified: PATIENT VERIFIED(optional for EMERGENT procedures): Patient name, Date of , Relevant allergies and The intended procedure Time Out Communication: Intended patient and procedure match the source documents. Consent documented and matches the intended procedure. Relevant labs, photos, and/or imaging studies have been reviewed. No correct side/site applicable for marking and visibility. No medications required for procedure. Fire risk assessed and interventions discussed. No implant(s) inserted. Sign Out: Rebeca Anand MD documented in this encounterSycamore Medical Center07-05-2022 Instructions* Patient Instructions* Rebeca Kasper Ma - 05/26/2022 3:48 PM EDT Post Cystoscopy Procedure Instructions Dr. Veronica Anand You have undergone a Cystoscopy Procedure. Your doctor has inserted a telescope into your urinary bladder through your urethra to view the inside of your bladder. WHAT TO EXPECT: Possible burning during urination and/or blood-tinged urine. WHAT TO DO: Resume normal activity and medications. Drink 6-8 glasses of fluid each day for 3 days to help flush your urinary system. WHEN TO CALL THE DOCTOR: IF you have a fever over 100 degrees Fahrenheit IF you are unable to urinate IF blood clots form in your urine If your urine becomes very bloody and does not clear with drinking extra fluids. Please call the [facility] office at [phone] Wednesday-Wednesday 8 am - 5 pm with any questions you may have and ask for the Urology nurses. If you call after 5 PM or on the weekends, please call [phone]. Pelvic floor PT Vaginal baclofen suppositories Daily Miralax Probiotic Things to try: Prelief before trigger foods/drinks Concentrated aloe vera ([place]) D-mannose 2g daily Uberlube documented in this encounterSycamore Medical Center07-05-2022 Nurse Note* Rebeca Kasper Ma - 05/26/2022 3:32 PM EDT PROCEDURE NURSE ASSESSMENT Patient ID with two(2)identifiers verified by: Rebeca Kasper Ma Procedure Indication: Cystoscopy Procedure May 26, 2022, Time In: 3:32 PM Consent signed:No Back Office UA obtained: yes Antibiotic given: NA Heart valve replacement: No Joint replacement: No (Please inform provider if either above replacements were within the last 2 years) Patient Prep: Betadine Scrub to perineum and placement of Sterile Drape. COMPLETED Lidocaine 2% Urojet Gel was administered into the URETHRA by RN. UNIVERSAL PROTOCOL / SAFETY CHECKLIST Procedure to be performed: Cystoscopy Procedure Sign in Communication: Completed Time Out: Team Confirms the Correct Patient, Correct Procedure, Correct Site and Site Marking, Correct Position (if applicable) Sign Out Discussion: Completed Pt ambulated to the check out area w/o incident. Instruction sheet given and reviewed and patient verbalizes understanding: yes Rebeca Kasper Ma documented in this encounterSycamore Medical Center06-16-2022 NoteHNO ID: [id number] Author: Juliane Hayes APRN.BLEACH RANGE OPERATOR Service: ? Author Type: Nurse Practitioner Type: Progress Notes Filed: 05/07/2022 12:08 PM Note Text: VIRTUAL VISIT PROGRESS NOTE This is a virtual visit using [employer] video visit. It required patient-provider interaction for the medical decision making as documented below. Payal Dos Santos is a 46 year old female seen for urge incontinence and bladder pressure. It feels like a small child on my bladder , No recent UTI's but having the sensation of incomplete bladder emptying and pressure. Has the urgency to go, especially at night. hx of breast cancer, hx of breast reconstruction. She received chemo - and following that felt like worst bladder infection ever had bladder bleeding and pain since that time. She is currently undergoing PFPT for painful intercourse, difficuty with bladder emptying - reports incontinence since starting chemo.States that her incontinence has mildly improved since PFPT. Urologic Hx: prior to chemo: saw [facility] urologist (no records available) for recurrent UTI- She underwent cystoscopy-and describes a ureteral dilation procedure. Her symptoms improved after that and has not had more UTI's reports vaginal dryness- using Replens. it helps, but I'm not using often enough - 2 x weekly s/p hysterectomy 2020- not interested in topical estrogen due to recent hx of breast CA. HISTORY REVIEWED (electronic chart updated): PAST MEDICAL HISTORY Diagnosis Date - Breast cancer (HCC) 02/2021 - Delayed emergence from general anesthesia - Epilepsy (HCC) 11/22/1997 - Hypothyroidism 11/22/2006 - PONV (postoperative nausea and vomiting) PAST SURGICAL HISTORY Procedure Laterality Date - MAMM STEREOTACTIC BREAST BIOPSY (HL,SP,MM) 05/20/2015 left breast - MASTECTOMY HX 01/2021 bilateral - PAST SURGICAL HISTORY OF breast biopsy - PAST SURGICAL HISTORY OF 08/2019 [facility] [place] - PAST SURGICAL HISTORY OF wisdom teeth extraction - once in high school, 2nd time 2011 - PAST SURGICAL HISTORY OF 08/18/2021 breast reconstruction - TOTAL ABDOM HYSTERECTOMY 2020 FAMILY HISTORY Problem Relation Age of Onset - Cancer Father rectal - Colon Cancer Father 65 - Prostate Cancer Maternal Grandfather - Osteoporosis Maternal Grandmother - other (heart attack) Paternal Grandfather 60 - Ovarian cancer Paternal Grandmother - Stroke Paternal Grandmother - Anesthesia Problems No Family History Social History Tobacco Use - Smoking status: Never Smoker - Smokeless tobacco: Never Used Vaping Use - Vaping Use: Never used Substance Use Topics - Alcohol use: Yes Comment: Rarely - Drug use: No Current Outpatient Medications Medication Sig - AJOVY AUTOINJECTOR 225 mg/1.5 mL auto-injector - ondansetron (ZOFRAN) 8 mg tablet Take 1 tablet by mouth every 8 hours as needed for nausea/vomiting. - anastrozole (ARIMIDEX) 1 mg tablet Take 1 tablet by mouth once daily. - ARMOUR THYROID 120 mg tablet Take 1 tablet by mouth once daily. - multivit-min/vit C/herb no.124 (AIRBORNE GUMMY ORAL) Take by mouth. - lamoTRIgine (LAMICTAL) 100 mg tablet Take 100 mg by mouth twice daily. - SUMAtriptan 100 mg tablet Take 100 mg by mouth as needed. Take one tablet at onset of headache ,can repeat one time in 2 hours No current facility-administered medications for this visit. ALLERGIES Allergen Reactions - Compazine [Prochlor* Myalgia - Erythromycin Base Vomiting International Prostate Symptom Score (I-PSS) 1. Incomplete Emptying -How often have you had the sensation of not emptying your bladder? 0 2. Frequency -How often have you had to urinate less than every two hours? 0 3. Intermittency -How often have you found you stopped and started again several times when you urinated? 0 4. Urgency -How often have you found it difficult to postpone urination? 3 5. Weak Stream -How often have you had a weak urinary stream? 0 6. Straining -How often have you had to strain to start urination? 0 7. Nocturia -How many times did you typically get up at night to urinate? 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 example this week, reports 2-3 days of pain. reports flare (more content not included)...[id number]* Patient Instructions* Reena Marte PA-C - 05/05/2022 4:11 PM EDT POST-PROCEDURE RECOMMENDATIONS: - Ok to shower today - Antibiotic ointment for 3 days - Vaseline or aquaphor to affected area following shower 1 week - Dry dressing if having slight bleeding/seeping -No heavy activity/friction/sweating on area for 2 - 3 days - f/u 1 - 2 months as needed or sooner if issues arise documented in this [facility] History of Present illness Narrative* Reena Marte PA-C - 05/05/2022 2:54 PM EDT Patient verified by: Name, Medical Record Number and Date of Site of the procedure confirmed:Yes Site: bilateral reconstructed nipple areolar complexes Staff involved:Reena Marte PA-C PRE-PROCEDURE DIAGNOSIS: hx of breast cancer, hx of breast reconstruction PROCEDURAL TIME OUT: Time out verification includes:Two Patient Identifiers Correct side and site marking Agreement on the procedure to be done Correct Positioning Safety Precautions Based on Patient History or Medication ANESTHESIA: 10cc (5cc per NAC) of lidocaine 1% with epinephrine 1:200,000; confirmation by local sharp sensation testing. PROCEDURE: After achieving local anesthesia, the bilateral areas were prepped with Hibiclens and draped in the typical fashion. Inks were mixed in the typical sterile container. An 11 needle cluster was used to drive inks into the deep scar tissue of bilateral nipple areolar complexes >20cm2 until diffuse re pigmentation was achieved. There was not significant blood loss requiring hemostasis. The area was cleaned with sterile NSS, triple antibiotic ointment placed, and dressed with a sterilenonstick dressing. Measurements of area tattooed: 5 cm x 4.5 cm Ink used: flesh 5 - 2 full, desert adela - medium squeeze, blonde k21 small squeeze - added more desert adela and blonde k21 for nipple Estimated Blood Loss: none Complications: None Condition of Patient After Procedure: stable/unchanged. POST-PROCEDURE DIAGNOSIS: hx of breast cancer, hx of breast reconstruction. POST-PROCEDURE RECOMMENDATIONS: - Ok to shower today - Antibiotic ointment for 3 days - Vaseline or aquaphor to affected area following shower 1 week - Dry dressing if having slight bleeding/seeping -No heavy activity/friction/sweating on area for 2 - 3 days - f/u 2 months as needed or sooner if issues arise Reena Marte PA-C 05/05/2022 documented in this encounterSy[facility]05-23-[facility]22 History of Present illness Narrative* Jenna Wilson, PT - 04/13/2022 5:33 PM EDT Episode Visit Count: 4 Therapist That Will Oversee The Plan Of Care: Jenna Wilson PT Start of Care Date: 11/06/21 Onset Date: 10/15/21 Patient Identified by Name and Date of : Yes REHABILITATION AND SPORTS THERAPY PHYSICAL THERAPY PROGRESS REPORT PLAN OF CARE UPDATE: Assessment: Payal Dos Santos demonstrates moderate improvement in compromised bladder function and altered sexual function. She has met several of her established goals and is progressing towards others. Patient continues to present with impairments in tissue tenderness, bladder emptying/pressure and t olerance to penetration that interfere with overall quality of life. She will benefit from continued skilled therapy services to meet the updated goals for this plan of care as noted below. Goals for Episode of Care: created on 11/06/21 through 01/30/22 Re-Eval: 01/15/2022; 02/23/2022; 04/15/2022 PROGRESSING: Patient to demonstrate independence with HEP PROGRESSING: Increase strength of pelvic floor to Power: 02/24 PROGRESSING: Endurance: 8 MET: Patient able to cough, sneeze, lift and/or exercise without leaking MET: Patient to demonstrate less leaks with urge PROGRESSING: Patient reports painfree intercourse (progressing through dilator program) MET: Patient demonstrates ability to perform diaphragmatic breathing and relaxation PROGRESSING: Patient will be able to decrease muscle resting tone of pelvic floor muscles to allow for decreased pain. Patient Goals: decrease pain with intercours, improve urinary incontinence Planned Interventions, Frequency, and Duration: 1 visit, 1 visit Total Number of Visits Planned: 1 Patient to be seen for Therapeutic exercise ([id number]);Neuromuscular re-education ([id number]);Manual therapy (06434);Therapeutic activities (90081);Self-retirement management ([id number]);Patient/Family/CaregiverEducation PLAN FOR NEXT VISIT: Progress report ; progress as indicated towards goals SUBJECTIVE: Patient Reason for Visit: Reports having no concerns with urinary leakage for a while. This is much better. Reports consistency with HEP and dilator use. Some moments there is no pain with intercourse and at other times there is. Progressing but still not 100%. Pain: Pain Pain Level: 0 Post Treatment Pain Post Treatment Pain Level: No Change PROMIS Scales Higher is Better 02/21/2022 03/25/2022 04/11/2022 Phys Func - Score 52 (within normal limits) - 54 (within normal limits) Phys Func - Percentile 58 % - 66 % Social Roles - Score 52 (within normal limits) - 52 (within normal limits) Social Role - Percentile 58 % - 58 % GH Physical - Score - 47.7 (Good) - GH Physical - Percentile - 41 % - GH Mental - Score - 48.3 (Very Good) - GH Mental - Percentile - 43 % - Self-Eff Symptom - Score - - 48 (Average) Self-Eff Symptom - Percentile - - 42 % T-scores: mean of general population = 50. 5 points is clinically meaningfully difference Percentiles provide an indication of how the patient's score ranks in relation to the general population. Higher percentile rankings indicate better function/quality of life. 50th percentile is the average of the general population and indicates half of respondents had a worse score. Lower is Better 01/12/2022 02/21/2022 04/11/2022 Fatigue - Score 48 (within normal limits) 48 (within normal limits) 50 (within normal limits) Fatigue - Percentile 58 % 58 % 50 % T-scores: mean of general population = 50. 5 points is clinically meaningfully difference Percentiles provide an indication of how the patient's score ranks in relation to the general population. Higher percentile rankings indicate better function/quality of life. 50th percentile is the average of the general population and indicates half of respondents had a worse score. OBJECTIVE MEASURES WITH LEVEL OF FUNCTION: Pelvic Floor Aggravates Pain: [place]alache Pain with penetration: Deep and superficial Difficulty starting stream: No Incomplete emptying: Sometimes Stress Incontinence: No Urinary Incontinence: no Pelvic Floor Muscle Assessment Consent for pelvic assessment/testing and treatment: Patient was educated regarding pelvic floor physical therapy assessment/treatment which may include pelvic floor and girdle muscle assessment externally or internally (vaginal or rectal approach).;Patient verbalized consent for the above treatment approaches today. Patient understands they have control of the treatment and an opportunity to stop treatment at any time. Pelvic Floor Muscle Assessment: PERFECT;Muscle Dynamics Power: 3+ Endurance: 7 Recruitment of pelvic floor muscles: Coordinated Ability to Lengthen pelvic floor: Yes Diaphragmatic Breathing : Good Pelvic Floor Manual Assessment Pelvic Floor Tenderness/Hyperactivity: Tested Vaginally in Tested Vaginally in : Supine/hooklying Iliococcygeus: Bilateral Coccygeus: Bilateral Pubococcygeus: Bilateral Pelvic Floor Tenderness/Hyperactivity Comments: min tension and min tenderness. Pelvic Region Sensation: Grossly Intact TREATMENT: Neuromuscular Re-Education: 1: PF assessment - see objective 2: PF dynamics: contract/relax/lengthen 3: Review breathing and use of dilator - new handout on alternative dilator types for progression. Handout also provided on lubricants - encouraged to confirm with doctor on appropriate alternatives with history of cancer 4: Review of active relaxation of pelvic floor muscles/downtraining and use of breath Skilled Intervention: Provided written instruction for home program to facilitate proper performance and compliance. Correct performance of home program was facilitated with verbal, visual and tactile cueing. Patient education as noted. Self-Usp Management: 1: Education/review on bladder irritants and possible impact on burning/emptying/pressure sensations 2: Education on sandwich technique with irritants 3: Discussion on POC moving forward in regards to current presentation and progress Skilled Intervention: Education as noted. Billing Neuromuscular Re-Education Treatment Minutes: 25 Self-Care/Home Management Treatment Minutes: 20 Total Treatment Time Minutes (timed/untimed): 45 Jenna Wilson PT documented in this encounterAnthony [place] [id number] History of Present illness Narrative* Jessica Chino, LOADERS.BLEACH RANGE OPERATOR - 04/09/2022 6:00 PM EDT VIRTUAL VISIT PROGRESS NOTE This is a virtual visit using [employer] video visit. It required patient-provider interaction for themedical decision making as documented below. FABY Dos Santos is a 46 year old female who presents today for hypothyroid problem. HPI: PATIENT OF DR MONTESINOS, ENDOCRINE Diagnosed with hypothyroid Last endocrine OV 12/18/2021 Some elements copied from my note 12/18/2021 which have been updated where appropriate, and all reflect current medical decision making from date of this visit. Dx with L breast cancer (below copied from gen surg OV consult 01/30/2021) [facility] by means of ultrasound-guided core biopsy of Left breast. The pathology report of the mass located at 6:00, 1 cm from the nipple showed Infiltrating Ductal Carcinoma Grade 2, ER positive, IN positive, HER2 non- amplified. Additional symptoms include breast mass , nipple inversion and focal breast pain. Sts is doing well with her thyroid but dealing with her breast ca diagnosis Had double mastectomy Wednesday Additionally scheduled for hysterectomy (full hyster) in April 2021 for endometrial hyperplasia Denies palpitations/tremors Will rarely have palpitation but did notice increase recently (since dx of breast ca) Had EKG and ECHO which were normal Weight has been stable She is unsure whether she will need further radiation or chemo Lymph node bx was done and she is awaiting her path results to determine POC Breast ca stable Had hysterectomy/complete end of June 2021 Is on Arimidex since July 30 Will be started on zoledronic acid September 25 Legs ankles and feet were swelling alexis during chemo treatment Insomnia and aches in bones Denies palpitations/tremors No vocal changes No swallowing issues Having another reconstructive breast surgery () 'going in stages' Very stressful past year, feels 'blah' because she gained weight Lost hair, it is growing back but she hates it, still wearing wigs Exercising - elliptical 3 times weekly Eating well Still having insomnia issues Has new sleep number bed, hoping that it will help Body aches, joint pains, feel like 'an old lady' Frustrated and depressed Low energy CURRENT HPI 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) CURRENT THYROID MEDS ARMOUR 120 mg 1 tab daily CURRENT LABS Component Latest Ref Rng & Units 11/05/2021 12/19/2021 03/27/2022 Glucose 74 - 99 mg/dL 100 (H) BUN 7 - 21 mg/dL 17 Creatinine 0.58 - 0.96 mg/dL 0.88 Sodium 136 - 144 mmol/L 139 Potassium 3.7 - 5.1 mmol/L 4.3 Chloride 97 - 105 mmol/L 101 CO2 22 - 30 mmol/L 26 Anion Gap 9 - 18 mmol/L 12 eGFR >=60 mL/min/1.73m 82 TSH 0.270 - 4.200 mIU/L 1.970 0.785 Free T4 0.9 - 1.7 ng/dL 0.7 (L) 0.9 Free T3 2.3 - 4.1 pg/mL 3.1 4.4 (H) Vitamin D 25 Hydroxy 31.0 - 80.0 ng/mL 22.6 (L) 50.2 Component Latest Ref Rng & Units 11/05/2021 03/27/2022 Glucose 74 - 99 mg/dL 100 (H) BUN 7 - 21 mg/dL 17 Creatinine 0.58 - 0.96 mg/dL 0.88 Sodium 136 - 144 mmol/L 139 Potassium 3.7 - 5.1 mmol/L 4.3 Chloride 97 - 105 mmol/L 101 CO2 22 - 30 mmol/L 26 Anion Gap 9 - 18 mmol/L 12 eGFR >=60 mL/min/1.73m 82 TSH 0.270 - 4.200 mIU/L 1.970 0.785 Free T4 0.9 - 1.7 ng/dL 0.7 (L) 0.9 Free T3 2.3 - 4.1 pg/mL 3.1 4.4 (H) Vitamin D 25 Hydroxy 31.0 - 80.0 ng/mL 50.2 PAST MEDICAL HISTORY Diagnosis Date Breast cancer (HCC) 02/2021 Delayed emergence from general anesthesia Epilepsy (HCC) 11/22/1997 Hypothyroidism 11/22/2006 PONV (postoperative nausea and vomiting) PAST SURGICAL HISTORY Procedure Laterality Date MAMM STEREOTACTIC BREAST BIOPSY (HL,SP,MM) 05/20/2015 left breast MASTECTOMY HX 01/2021 bilateral PAST SURGICAL HISTORY OF breast biopsy PAST SURGICAL HISTORY OF 08/2019 [facility] PAST SURGICAL HISTORY OF wisdom teeth extraction - once in high school, 2nd time 2011 PAST SURGICAL HISTORY OF 08/18/2021 breast reconstruction TOTAL ABDOM HYSTERECTOMY 2020 FAMILY HISTORY Problem Relation Age of Onset Cancer Father rectal Colon Cancer Father 65 Prostate Cancer Maternal Grandfather Osteoporosis Maternal Grandmother other (heart attack) Paternal Grandfather 60 Ovarian cancer Paternal Grandmother Stroke Paternal Grandmother Anesthesia Problems No Family History Social History Tobacco Use Smoking status: Never Smoker Smokeless tobacco: Never Used Vaping Use Vaping Use: Never used Substance Use Topics Alcohol use: Yes Comment: Rarely Drug use: No Current Outpatient Medications Medication Sig anastrozole (ARIMIDEX) 1 mg tablet Take 1 tablet by mouth once daily. docusate sodium (COLACE) 100 mg capsule Take 1 capsule by mouth twice daily as needed for constipation. cholecalciferol, Vitamin D3, (VITAMIN D3) 1,250 mcg (50,000 unit) cap capsule Take 1 capsule by mouth one time a week. With food ARMOUR THYROID 120 mg tablet Take 1 tablet by mouth once daily. MAGNESIUM CARBONATE ORAL Take by mouth. glucosamine HCl/chondroitin olivarez (GLUCOSAMINE-CHONDROITIN ORAL) Take by mouth. multivit-min/vit C/herb no.124 (AIRBORNE GUMMY ORAL) Take by mouth. pyridoxine, vitamin B6, (VITAMIN B-6) 100 mg tablet Take 100 mg by mouth once daily. lamoTRIgine (LAMICTAL) 100 mg tablet Take 100 mg by mouth twice daily. SUMAtriptan 100 mg tablet Take 100 mg by mouth as needed. Take one tablet at onset of headache ,canrepeat one time in 2 hours No current facility-administered medications for this visit. ALLERGIES Allergen Reactions Compazine [Prochlor* Myalgia Erythromycin Base Vomiting REVIEW OF SYSTEMS - POSITIVES IN BOLD GENERAL:No weight loss, malaise or fevers HEENT:Negative for frequent or significant headaches, No changes in hearing or vision, no nose bleeds or other nasal problems NECK:Negative for lumps, goiter, pain and significant neck swelling RESPIRATORY: Negative for cough, hemoptysis, wheezing, COPD, dyspnea or shortness of breath CARDIOVASCULAR: Negative for chest pain, leg swelling, hypertension, CHF or palpitations VIDEO EXAM: (if completed, performed via video enabled technology) GENERAL: alert and appropriate, in no distress, well-hydrated, well nourished and happy, smiling, interactive SKIN: no rash noted HEAD: normocephalic, no abnormality or lesion noted EYES: PERRL NECK: full ROM, no cervical LNs noted EXTREMITIES: not assessed NEUROLOGIC: no obvious deficit ASSESSMENT: (E03.9) Hypothyroidism, unspecified type (primary encounter diagnosis) Comment: well supplemented per current. Pt euthyroid, no changes to dosing at this time. Recheck 3-6 mos. Plan: TSH BLD, T4 FREE/FREE THYROX, T3 FREE BLD Jessica Chino CNP documented in this encounterSy[facility]05-[facility] History of Present illness Narrative* Reena Marte PA-C - 04/01/2022 1:09 PM EDT Plastic Surgery Note CC: Post op HPI: Payal is a 46 year old female s/p 02/14/21 1. Bilateral breast reconstruction with tissue machine plate stacker placement in prepectoral position. 2. Use of AlloDerm dermal matrix soft tissue supplementation 320 square cm on each side of the breast. 08/18/21 Exchange of bilateral tissue machine plate stacker to permanent smooth round silicone implant. Implant information: The patient with breast implant that was placed with Allergan smooth round cohesive silicone gel implant SCF 385 mL. On the right side, serial #[id number]. On the left side, serial #[id number]. 12/24/21 1. Bilateral breast nipple areolar complex reconstructions with modified skate flap. 2. Bilateral breast lipografting. 3. Left breast matching mastopexy with excision of the inframammary fold skin. Time post op: 3 months Doing well. Patient noticed lump/scab on incision on left breast. ROS: Pain is not an issue. Patient denies fever or chills. Objective: BP 126/77 Pulse 85 Temp 36.3 C (97.4 F) LMP 04/14/2021 PAST MEDICAL HISTORY Diagnosis Date Breast cancer (HCC) 02/2021 Delayed emergence from general anesthesia Epilepsy (HCC) 11/22/1997 Hypothyroidism 11/22/2006 PONV (postoperative nausea and vomiting) PAST SURGICAL HISTORY Procedure Laterality Date MAMM STEREOTACTIC BREAST BIOPSY (HL,SP,MM) 05/20/2015 left breast MASTECTOMY HX 01/2021 bilateral PAST SURGICAL HISTORY OF breast biopsy PAST SURGICAL HISTORY OF 08/2019 [facility] PAST SURGICAL HISTORY OF wisdom teeth extraction - once in high school, 2nd time 2011 PAST SURGICAL HISTORY OF 08/18/2021 breast reconstruction TOTAL ABDOM HYSTERECTOMY 2020 Current Outpatient Medications Medication Sig Dispense Refill ondansetron (ZOFRAN) 8 mg tablet Take 1 tablet by mouth every 8 hours as needed for nausea/vomiting. 30 tablet 1 anastrozole (ARIMIDEX) 1 mg tablet Take 1 tablet by mouth once daily. 90 tablet 3 ARMOUR THYROID 120 mg tablet Take 1 tablet by mouth once daily. 90 tablet 3 multivit-min/vit C/herb no.124 (AIRBORNE GUMMY ORAL) Take by mouth. lamoTRIgine (LAMICTAL) 100 mg tablet Take 100 mg by mouth twice daily. SUMAtriptan 100 mg tablet Take 100 mg by mouth as needed. Take one tablet at onset of headache ,canrepeat one time in 2 hours docusate sodium (COLACE) 100 mg capsule Take 1 capsule by mouth twice daily as needed for constipation. 30 capsule 0 cholecalciferol, Vitamin D3, (VITAMIN D3) 1,250 mcg (50,000 unit) cap capsule Take 1 capsule by mouth one time a week. With food 8 capsule 0 MAGNESIUM CARBONATE ORAL Take by mouth. glucosamine HCl/chondroitin olivarez (GLUCOSAMINE-CHONDROITIN ORAL) Take by mouth. pyridoxine, vitamin B6, (VITAMIN B-6) 100 mg tablet Take 100 mg by mouth once daily. No current facility-administered medications for this visit. ALLERGIES Allergen Reactions Compazine [Prochlor* Myalgia Erythromycin Base Vomiting PE: A&Ox3, NAD The wounds are dry and intact with no s/s infection NAC healed well Small spitting suture/superficial scab on left IMF incision in center - removed A/P: Expected post operative course Doing well Removed spitting suture. Recommended antibiotic ointment for 5 days. Follow up for tattoo or with further concerns. Reena Marte PA-C 04/01/2022 Medical Decision Making: Problems: Moderate: 1+ chronic illnesses with change Risk: Low: Low risk from testing/treatment Medical Decision Making Level: 3 - Low documented in this encounterSy[facility]05-11-[facility]22 Nurse Note* Rayne Camarillo MA - 04/01/2022 9:40 AM EDT Additional intake questions: Has the patient had fever, nausea, vomiting, diarrhea, constipation, fatigue for > 1 week? Yes, constipation (day of last BM yesterday) Does patient have any new or increased numbness or tingling of extremities? No Is patient interested in fertility information? No Does patient need any prescription refills? No Does patient have an advanced directive in place? Yes, copies are in Epic Electronically Signed By: Rayne Camarillo MA documented in this encounterSycamore [facility] Center05-11-2022 History of Present illness Narrative* Paula Tello APRN.LINDSAY - 04/01/2022 8:59 AM EDT Some elements of all sections of this documentation were copied from my previous note of October 06, 2021 and have been re-examined and updated where appropriate. All elements reflect the current assessment and medical decision making of today, April 01, 2022. ATTENDING PHYSICIAN: Dr. Daphnie Barreto IDENTIFICATION: Payal Dos Santos is a 46 year old year old woman with a history of a [id number], ER positive (95%), IN positive (95%), [id number] negatibe (IHC 1+) (oncotype dx recurrence score of 19), Infiltrating ductal carcinoma (grade 2) of the left breast, diagnosed in December 2020. REASON FOR VISIT / CHIEF COMPLAINT: Routine follow up for cancer care SURVIVORSHIP VISIT: September 25, 2021 CURRENT SYSTEMIC THERAPY FOR BREAST CANCER: Anastrozole 1 mg daily PAST THERAPY FOR BREAST CANCER: Bilateral mastectomy with left sentinel node biopsy and machine plate stacker to implant reconstruction (Dr. Sigala / Dr. Rodarte; February 14, 2021, 3 cm , 1/2 nodes + with micromets) Docetaxel / Cyclophosphamide X4 (completed on June 03, 2021; received in [place]) EDWARD/BSO (June 2020) Anastrozole 1 mg daily (July 30, 2021 - September 25, 2021) Letrozole 2.5 mg daily (briefly, intolerant) Exemestane (briefly, cost was an issue) Anastrozole 1 mg daily (November 2021 - present) INTERVAL HISTORY: Pt presents today by herself. She reports that she is taking her Anastrozole 1 mg daily with the following concerns related to the same: body aches, specifically heals / ankles, although despite these concerns, she notes that she is tolerating the medication better than she did initially. Updates / Concerns noted at time of today's visit are as follows: 1) heals / ankles pains and worsens with activity, which limits her ability to walk, considering CBD lotions to see if this would help 2) frequent UTI's, most recent took longer to resolve and recurrent symptoms, increased pressure, feels like bladder swollen , frequency, foul smelling, has been intermittent since chemotherapy and recalls bladder issues since chemotherapy, recommended [facility] 3) felt bad the day after the first zometa, symptoms were body aches, fever, dizziness and nausea 4) tendency towards headaches, takes imitrex as needed for migraines (up to 3 - 4 monthly), followswith neurology for the same 5) lump in the left breast incision, seeing plastics for the same today, but on exam, it appears to be a skin based growth, ? skin tag She otherwise reports that she physically feels well and is without any new concerns or discomfortsthat would be suggestive of recurrent or metastatic disease. She specifically denies any concerningnausea, vomiting, cough, shortness of breath, localized bone pain. She reports that she is doing regular breast exams and denies any concerns related to the same. Shealso confirms that she does have a primary care provider (Sloan Sherman MD), which she verifies she is following up with regularly for her routine health maintenance. REVIEW OF SYSTEMS: The remainder of the review of systems is unremarkable. PERSONAL MEDICAL HISTORY: PAST MEDICAL HISTORY Diagnosis Date Breast cancer (HCC) 02/2021 Delayed emergence from general anesthesia Epilepsy (HCC) 11/22/1997 Hypothyroidism 11/22/2006 PONV (postoperative nausea and vomiting) PERSONAL SURGICAL HISTORY: PAST SURGICAL HISTORY Procedure Laterality Date MAMM STEREOTACTIC BREAST BIOPSY (HL,SP,MM) 05/20/2015 left breast MASTECTOMY HX 01/2021 bilateral PAST SURGICAL HISTORY OF breast biopsy PAST SURGICAL HISTORY OF 08/2019 D&C PAST SURGICAL HISTORY OF wisdom teeth extraction - once in high school, 2nd time 2011 PAST SURGICAL HISTORY OF 08/18/2021 breast reconstruction TOTAL ABDOM HYSTERECTOMY 2020 SIGNIFICANT (CANCER) FAMILY MEDICAL HISTORY: Father with colon cancer Paternal grandmother with ovarian cancer Maternal grandfather with prostate cancer Was a referral made to medical genetics? Breast Cancer STAT Panel with reflex to the Common Hereditary Cancers Panel through [facility] was negative for a pathogenic variant PHYSICAL EXAM: Physical exam listed below was completed in it's entirety today, April 01, 2022 and is unchanged fromOctober 06, 2021 except where noted in italics. General appearance: well appearing, alert, in no acute distress Skin: Skin color, texture, turgor normal, no rashes or lesions Head: unremarkable Neck: Supple, no adenopathy Lungs: lungs clear to auscultation, no wheezing or rhonchi Heart: Negative, RRR Breasts: Bilateral breast exam reveals mastectomy with implants in placed, there is no axillary adenopathy, concerning skin changes or palpable lesions Abdomen: Normal abdominal exam, Abdomen soft, non-tender. No masses, organomegaly Extremities:Extremities normal. No deformities or edema. LABS/IMAGING: Lab results from March 27, 2022 have been reviewed and are as follows: Component Latest Ref Rng & Units 03/27/2022 Protein, Total 6.3 - 8.0 g/dL 7.3 Albumin 3.9 - 4.9 g/dL 5.1 (H) Calcium 8.5 - 10.2 mg/dL 10.1 Bilirubin, Total 0.2 - 1.3 mg/dL 0.2 Alkaline Phosphatase 34 - 123 U/L 103 AST 13 - 35 U/L 18 ALT 7 - 38 U/L 10 Glucose 74 - 99 mg/dL 100 (H) BUN 7 - 21 mg/dL 17 Creatinine 0.58 - 0.96 mg/dL 0.88 Sodium 136 - 144 mmol/L 139 Potassium 3.7 - 5.1 mmol/L 4.3 Chloride 97 - 105 mmol/L 101 CO2 22 - 30 mmol/L 26 Anion Gap 9 - 18 mmol/L 12 eGFR >=60 mL/min/1.73m 82 TSH 0.270 - 4.200 mIU/L 0.785 Free T4 0.9 - 1.7 ng/dL 0.9 Free T3 2.3 - 4.1 pg/mL 4.4 (H) Vitamin D 25 Hydroxy 31.0 - 80.0 ng/mL 50.2 Breast imaging no longer indicated secondary to bilateral mastectomy with implant reconstruction Bone density (September 25, 2021): normal bone density results, with the lowest t-score being 0.0 IMPRESSION: [id number], ER positive (95%), IN positive (95%), Qpy5imi negatibe (IHC 1+) (oncotype dx recurrence score of 19), Infiltrating ductal carcinoma (grade 2) of the left breast, diagnosed in December 2020, s/p bilateral mastectomy with left sentinel node procedure (with subsequent implant exchange), chemotherapy with TC X4, EDWARD/BSO, started AI in July 2021, held in early September for side effectsand will change to new AI today, October 06, 2021; initiated zoledronic acid September 25, 2021, no evidence of disease recurrence at the time of today's exam. PLAN: After evaluation and review of the ongoing treatment plan, the following referral/recommendations have been made. (Z08) Encounter for routine cancer follow-up (primary encounter diagnosis) (R39.89) Sensation of pressure in bladder area Plan: UA WITH CULTURE IF INDICATED, CONSULT TO UROLOGY (C50.912) Invasive ductal carcinoma of breast, female, left (HCC) Plan: DISCONTINUED: PHARMACY COMMUNICATION PATIENT ARRIVED, DISCONTINUED: zoledronic [id number] 4 mg iv piggyback 100 mL (ZOMETA), DISCONTINUED: ondansetron (PF) 8 mg injection (ZOFRAN), DISCONTINUED: dexAMETHasone sodium phosphate 8 mg injection (DECADRON), DISCONTINUED: acetaminophen 650 mg tab(s) (TYLENOL) (Z79.901) Aromatase inhibitor use - She will continue anastrozole daily with intent of completing a minimum 5 years of the same (until June 2026 and up to 7 years (June 2028)) - Continue with zoledronic acid every 6 months (due today, April 01, 2022), will add in premeds of zofran / decadron and tylenol and per pt request, give over 30 minutes instead of 15, if another significant reaction occurs, can consider changing to prolia for future treatments - Will do UA today and refer to [facility] for further evaluation for frequent urinary symptoms - She will monitor other symptoms and notify our - Breast imaging no longer indicated - Bone density due every 2 years, next due: September 2023 - Follow up with PCP for routine health maintenance - Follow up in 3 months, anticipate seeing Dr. Barreto back She has been encouraged to call with any additional questions/concerns in the interim. Understanding verbalized. I spent a total of 35 minutes on the date of the service which included preparing to see the patient, [id number] patient care, completing clinical documentation, obtaining and/or reviewing separately obtained history, performing a medically appropriate examination, counseling and educating the patient/family/caregiver, ordering medications, tests, or procedures and communicating results to the patient/family/caregiver. Paula Tello CNP cc: Sloan Sherman MD [facility] History of Present illness Narrative* Jenna Wilson, PT - 02/23/2022 5:23 PM EDT Episode Visit Count: 3 Therapist That Will Oversee The Plan Of Care: Jenna Wilsno, BRAD Start of Care Date: 11/06/21 Onset Date: 10/15/21 Patient Identified by Name and Date of : Yes [facility] PHYSICAL THERAPY PROGRESS REPORT PLAN OF CARE UPDATE: Assessment: Payal Dos Santos demonstrates moderate improvement in compromised bladder function and altered sexual function. She has progress towards goals of improved pelvic pain with penetration and improved bladder control. Patient continues to present with impairments in pelvic floor strength/endurance and tissue tenderness/tension/restriction that interfere with remaining complaints. She will benefit from continued skilled therapy services to meet the updated goals for this plan of care as noted below. Goals for Episode of Care: created on 11/06/21 through 01/30/22 Re-Eval: 01/15/2022; 02/23/2022 PROGRESSING: Patient to demonstrate independence with HEP NOT MET: Increase strength of pelvic floor to Power: 02/24 NOT MET: Endurance: 8 MET: Patient able to cough, sneeze, lift and/or exercise without leaking MET: Patient to demonstrate less leaks with urge NOT MET: Patient reports painfree intercourse (progressing through dilator program) PROGRESSING: Patient demonstrates ability to perform diaphragmatic breathing and relaxation PROGRESSING: Patient will be able to decrease muscle resting tone of pelvic floor muscles to allow for decreased pain. Patient Goals: decrease pain with intercours, improve urinary incontinence Planned Interventions, Frequency, and Duration: 1 visit, 1 visit Total Number of Visits Planned: 1 Patient to be seen for Therapeutic exercise (76893);Neuromuscular re-education (63204);Manual therapy (71535);Therapeutic activities (78450);Self-retirement management ([id number]);Patient/Family/CaregiverEducation PLAN FOR NEXT VISIT: Review dilators, PME. Progress as indicated SUBJECTIVE: Patient Reason for Visit: Reports occasional urinary leakage but much improved. Occasionally bladder pressure at times - worse with dilating. Dilator program has helped with pain with intercourse.. Pain: Pain Pain Level: 0 Post Treatment Pain Post Treatment Pain Level: No Change PROMIS Scales Higher is Better 12/27/2021 01/12/2022 02/21/2022 Phys Func - Score - 48 (within normal limits) 52 (within normal limits) Phys Func - Percentile - 42 % 58 % Social Roles - Score - 50 (within normal limits) 52 (within normal limits) Social Role - Percentile - 50 % 58 % GH Physical - Score 44.9 (Good) - - GH Physical - Percentile 31 % - - GH Mental - Score 48.3 (Very Good) - - GH Mental - Percentile 43 % - - Self-Eff Symptom - Score - 46 (Average) - Self-Eff Symptom - Percentile - 34 % - T-scores: mean of general population = 50. 5 points is clinically meaningfully difference Percentiles provide an indication of how the patient's score ranks in relation to the general population. Higher percentile rankings indicate better function/quality of life. 50th percentile is the average of the general population and indicates half of respondents had a worse score. Lower is Better 11/05/2021 01/12/2022 02/21/2022 Fatigue - Score 57 (mild) 48 (within normal limits) 48 (within normal limits) Fatigue - Percentile 24 % 58 % 58 % T-scores: mean of general population = 50. 5 points is clinically meaningfully difference Percentiles provide an indication of how the patient's score ranks in relation to the general population. Higher percentile rankings indicate better function/quality of life. 50th percentile is the average of the general population and indicates half of respondents had a worse score. OBJECTIVE MEASURES WITH LEVEL OF FUNCTION: Pelvic Floor Muscle Assessment Consent for pelvic assessment/testing and treatment: Patient was educated regarding pelvic floor physical therapy assessment/treatment which may include pelvic floor and girdle muscle assessment externally or internally (vaginal or rectal approach).;Patient verbalized consent for the above treatment approaches today. Patient understands they have control of the treatment and an opportunity to stop treatment at any time. Pelvic Floor Muscle Assessment: PERFECT;Muscle Dynamics Power: 3 Endurance: 5 Recruitment of pelvic floor muscles: Coordinated (improved with cues for sequencing with breath) Ability to Lengthen pelvic floor: Yes (75%) Diaphragmatic Breathing : Good Pelvic Floor Manual Assessment Pelvic Floor Tenderness/Hyperactivity: Tested Vaginally in Tested Vaginally in : Supine/hooklying Iliococcygeus: Bilateral (L>R) Coccygeus: Bilateral (L>R) Obturator internus: Bilateral Pubococcygeus: Bilateral (L>R) Pelvic Floor Tenderness/Hyperactivity Comments: min-mod tension L>R - good improvement with tx Pelvic Region Sensation: Grossly Intact TREATMENT: Manual Therapy: 1: Internal manual therapy for pelvic floor muscle relaxation. Vaginal approach in hooklying, single digit. Sustained pressure with mild distraction. 2: Review dilator program - increasing size as able and working on lateral and dynamic movements Skilled Intervention: Manual skills to improve joint mobility, ROM, and decrease pain. Utilized anatomy knowledge of the therapist, and assessment of patient's response to intervention. Neuromuscular Re-Education: 1: Review PF dynamics: contract/relax/lengthen 2: Review diaphragmatic breathing 3: Instruction on active PF downtraining 4: PME on exhale: 3x10 max Skilled Intervention: Provided written instruction for home program to facilitate proper performance and compliance. Correct performance of home program was facilitated with verbal, visual and tactile cueing. Patient education as noted. Self-Usp Management: 1: Education on lubricant importance 2: Education on bladder irritants 3: Education on pillow under pelvis for comfort during dilating/intercourse Skilled Intervention: Provided written instruction for home program to facilitate proper performance and compliance. Correct performance of home program was facilitated with verbal cueing. Education as noted. Billing Manual TherapyTreatment Minutes: 15 Neuromuscular Re-Education Treatment Minutes: 20 Self-Care/Home Management Treatment Minutes: 10 Total Treatment Time Minutes (timed and untimed codes) : 45 Jenna Wilson PT [facility]* Diagnosis Spasm of muscle- Primary Muscle weakness Muscle weakness (generalized) [facility]* Diagnosis Invasive ductal carcinoma of breast, female, left (HCC)- Primary [facility]* Diagnosis Encounter for routine cancer follow-up- Primary Other follow-up examination Sensation of pressure in bladder area Other specified disorders of bladder Invasive ductal carcinoma of breast, female, left (HCC) Aromatase inhibitor use Use of aromatase inhibitors Hypothyroidism, unspecified type- Primary [facility]* Diagnosis Invasive ductal carcinoma of breast, female, left (HCC)- Primary Sensation of pressure in bladder area Other specified disorders of bladder Hypothyroidism, unspecified type- Primary [facility]* Diagnosis Suture reaction, initial encounter- Primary S/P breast reconstruction Breast replaced by other means History of breast cancer Personal history of malignant neoplasm of breast Hypothyroidism, unspecified type- Primary [facility]* Diagnosis Invasive ductal carcinoma of breast, female, left (HCC)- Primary Hypothyroidism, unspecified type- Primary [facility]* Diagnosis Hypothyroidism, unspecified type- Primary [facility]* Diagnosis Spasm of muscle- Primary [facility]* Diagnosis Breast asymmetry following reconstructive surgery- Primary Disproportion of reconstructed breast History of breast cancer Personal history of malignant neoplasm of breast [facility]* Diagnosis High-tone pelvic floor dysfunction in female- Primary Screening for genitourinary condition Screening for other and unspecified genitourinary condition Interstitial cystitis (chronic) without hematuria [facility]* Diagnosis Dyspareunia in female- Primary High-tone pelvic floor dysfunction Other specified disorders of female genital organs documented in this encounter [facility] note* Diagnosis Hypothyroidism, unspecified type- Primary documented in this encounter [facility] note* Diagnosis Malignant neoplasm of left breast in female, estrogen receptor positive, unspecified site of breast (HCC)- Primary documented in this encounter [facility] note* Diagnosis Mass of upper outer quadrant of left breast- Primary documented in this encounter [facility] note* Diagnosis Invasive ductal carcinoma of breast, female, left (HCC)- Primary Aromatase inhibitor use Use of aromatase inhibitors Arthralgia of multiple sites Pain in joint, multiple sites documented in this encounter [facility] note* Diagnosis Mass of upper outer quadrant of left breast documented in this encounter [facility] note* Diagnosis Invasive ductal carcinoma of breast, female, left (HCC)- Primary Hypothyroidism, unspecified type Malignant neoplasm of left breast in female, estrogen receptor positive, unspecified site of breast (HCC) documented in this encounter [facility] note* Diagnosis Malignant neoplasm of left breast in female, estrogen receptor positive, unspecified site of breast (HCC)- Primary Invasive ductal carcinoma of breast, female, left (HCC) documented in this encounter [facility] note* Diagnosis Encounter for routine cancer follow-up- Primary Other follow-up examination Malignant neoplasm of left breast in female, estrogen receptor positive, unspecified site of breast (HCC) Aromatase inhibitor use Use of aromatase inhibitors documented in this encounter [facility] note* Diagnosis Aromatase inhibitor use Use of aromatase inhibitors documented in this encounter [facility] note* Diagnosis Unspecified hypothyroidism- Primary Vitamin D deficiency Unspecified vitamin D deficiency documented in this encounter [facility] note* Diagnosis Invasive ductal carcinoma of breast, female, left (HCC)- Primary documented in this encounter [facility] note* Diagnosis Encounter for routine cancer follow-up- Primary Other follow-up examination Rib pain on right side Chest pain, unspecified Malignant neoplasm of left breast in female, estrogen receptor positive, unspecified site of breast (HCC) Aromatase inhibitor use Use of aromatase inhibitors documented in this encounter [facility] note* Diagnosis Rib pain on right side Chest pain, unspecified documented in this encounter [facility] note* Diagnosis Aromatase inhibitor use Use of aromatase inhibitors documented in this encounter [facility] noteNo InformationNort Alum.ni Other Evaluation note* Diagnosis Routine general medical examination at a health care facility- Primary Unspecified hypothyroidism- Primary Vitamin D deficiency Unspecified vitamin D deficiency documented in this encounter [facility] note* Diagnosis Invasive ductal carcinoma of breast, female, left (HCC)- Primary Unspecified hypothyroidism- Primary Vitamin D deficiency Unspecified vitamin D deficiency documented in this encounter [facility] note* Diagnosis Screening for colon cancer- Primary Special screening for malignant neoplasms, colon Family history of colon cancer Family history of malignant neoplasm of gastrointestinal tract documented in this encounter [facility] note* Diagnosis Onset Date Resolution Status Acute right hip pain acute Influenza A (H1N1) noneactiv e [facility] Work Phone: Evaluation note* Diagnosis Malignant neoplasm of left breast in female, estrogen receptor positive, unspecified site of breast (HCC)- Primary documented in this encounter [facility] note* Diagnosis Invasive ductal carcinoma of breast, female, left (HCC)- Primary documented in this encounter [facility] note* Diagnosis Breast asymmetry between [place] breast and reconstructed breast- Primary Disproportion of reconstructed breast Breast asymmetry following reconstructive surgery Disproportion of reconstructed breast S/P breast reconstruction Breast replaced by other means Personal history of malignant neoplasm of breast documented in this encounter [facility] note* Diagnosis Invasive ductal carcinoma of breast, female, left (HCC)- Primary documented in this encounter [facility] note* Diagnosis Hypothyroidism, unspecified type Vitamin D deficiency Unspecified vitamin D deficiency documented in this encounter [facility] note* Diagnosis Breast asymmetry following reconstructive surgery- Primary Disproportion of reconstructed breast documented in this encounter [facility] note* Diagnosis Preop examination- Primary Preoperative examination, unspecified Invasive ductal carcinoma of breast, female, left (HCC) Prophylactic breast removal Palpitations Nonintractable epilepsy without status epilepticus, unspecified epilepsy type (HCC) Hypothyroidism, unspecified type Abnormal EKG Nonspecific abnormal electrocardiogram (ECG) (EKG) Pre-op evaluation- Primary Preoperative examination, unspecified Endometrial hyperplasia Endometrial hyperplasia, unspecified Personal history of malignant neoplasm of breast Invasive ductal carcinoma of breast, female, left (HCC) Pre-op evaluation- Primary Preoperative examination, unspecified Personal history of malignant neoplasm of breast Hypothyroidism, unspecified type Invasive ductal carcinoma of breast, female, left (HCC) Nonintractable epilepsy without status epilepticus, 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, unspecified epilepsy type (HCC) Hypothyroidism, unspecified type Invasive ductal carcinoma of breast, female, left (HCC) Pre-op exam- Primary Preoperative examination, unspecified Breast asymmetry following reconstructive surgery Disproportion of reconstructed breast Nonintractable epilepsy without status epilepticus, unspecified epilepsy type (HCC) Hypothyroidism, unspecified type Invasive ductal carcinoma of breast, female, left (HCC) Breast asymmetry following reconstructive surgery- Primary Disproportion of reconstructed breast S/P breast reconstruction Breast replaced by other means Personal history of malignant neoplasm of breast [facility] Narrative - Reported* Type Description Date Medical History Problem Title : comp liance with medical treatment, Problem Description : compliance with medical treatment, Problem Comment : Done, Problem Status : Active,, Medical History Problem Title : no k nown problems, Problem Description : no known problems, Problem Comment : F, Problem Status : Active,, Medical History Problem Title : past medical history E&M, Problem Description : past medical history E&M, Problem Comment : [place] Seizures - Dr. Funes Hypothyroidism - Dr. Christiansen ([employer] - [facility]), Problem Status : Active,, Medical History Problem Title : past medical history reviewed, Problem Description : past medical history reviewed, Problem Comment : reviewed - no changes required, Problem Status : Active,, Surgical History Problem Title : comp lete hysterectomy, Problem Status : Active, Surgical History Problem Title : mastectomy, Pro blem Status : Active, Surgical History Problem Title : past surgical history reviewed, Problem Description : past surgical history reviewed, Problem Comment : reviewed - no changes required, Problem Status : Active, Surgical History Problem Title : surg ical procedures, hx of, Problem Description : surgical procedures, hx of, Problem Comment : Left breast biopsies - benign - Dr. Sigala at [facility], Problem Status : Active, Hireology Other History general Narrative - Reported* Type Description Date Medical History Dysuria Medical History Malignant neoplasm o f unspecified site of unspecified female breast Medical History Hypothyroidism Medical History Migraine, unspecifie d, not intractable, without status migrainosus Medical History Acute recurrent maxillary sinusi tis Medical History Cutaneous abscess of buttock Medical History Pain in unspecified joint Medical History Unspecified urinary incontinence Medical History Unspecified symptoms and signs involving the genitourinary system Medical History Family history of malignant neop lasm of digestive organ Surgical History complete hysterectomy Surgical History mastectomy Hospitalization History see surgical history Hireology Other Reason for referral (narrative)* Diagnostic Procedure Only (Routine) - Authorized Specialty Diagnoses / Procedures Referred By Yunior lyons Referred To Contact [facility] Diagnoses Mass of upper outer quadrant of left breast Procedures US BREAST LTD LT US BREAST UNI REAL [place] [id number] [id number] [facility] [address] [place] [address] Referral ID Status Reason Start Date Expiration Date Visits Requested Visits Authorized [id number] Authorized Auto-Generat ed Referral 08/05/2022 08/28/2023 1 1 [facility] for referral (narrative)* Diagnostic Procedure Only (Routine) - Closed Specialty Diagnoses / Procedures Referred By Yunior lyons Referred To Contact [facility] Diagnoses Mass of upper outer quadrant of left breast Procedures US BREAST LTD LT US BREAST UNI REAL [place] [address] [id number] [facility] [address] [place] [address] Referral ID Status Reason Start Date Expiration Date V isits Requested Visits Authorized [id number] Closed Auto-Generate d Referral 08/05/2022 08/28/2023 1 1 T [facility] for referral (narrative)* Diagnostic Procedure Only (Routine) - Closed Specialty Diagnoses / Procedures Referred By Yunior lyons Referred To Contact [facility] IMAGING Diagnoses Rib pain on right side Procedures XR RIBS/CHEST 3V AP RIB/OBLS/CXR RIGHT RADEX RIBS UNI W/POSTEROANT CH MINIMUM 3 VIEWS Paula Tello, LOADERS.BLEACH RANGE OPERATOR [address] [place] [address] [place] [address] Referral ID Status Reason Start Date Expiration Date V isits Requested Visits Authorized [id number] Closed Auto-Generate d Referral 10/07/2023 11/05/2024 1 1 [facility] for referral (narrative)* Diagnostic Procedure Only (Routine) - Closed Specialty Diagnoses / Procedures Referred By Yunior lyons Referred To Contact [facility] Diagnoses Rib pain on right side Procedures XR RIBS/CHEST 3V AP RIB/OBLS/CXR RIGHT RADEX RIBS UNI W/POSTEROANT CH MINIMUM 3 VIEWS Paula Tello APRN.CNP [address] [place] [address] [place] [address] Referral ID Status Reason Start Date Expiration Date V isits Requested Visits Authorized [id number] Closed Auto-Generate d Referral 10/07/2023 11/05/2024 1 1 [facility] for referral (narrative)* Outpatient Procedure (Routine) - Pending Review Specialty Diagnoses / Procedures Referred By Yunior lyons Referred To Contact [facility] Diagnoses Screening for colon cancer Family history of colon cancer Procedures COLONOSCOPY SCREENING COLONOSCOPY FLX DX W/COLLJ SPEC WHEN Shona Salinas APRN.CNP [address] [place] [address] [facility] [address] [place] [address] Referral ID Status Reason Start Date Expiration Date Visits Requested Visits Authorized [id number] Pending Review Auto-Generat ed Referral 10/28/2023 10/28/2024 1 1 [facility] Summary Purpose Family History No Family History Records Found Relationship Condition Age at Onset Recorded Date/T lainey father Malignant neoplasm Unknown Unknown Advance Directives No Advanced Directives Records FoundDocuments on File Type Date Recorded Patient 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 Block Cutter 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 Advance Directive(s) 11/06/2021 12:00 AM Advance Directive(s) 07/18/2021 1:25 PM Advance Directive(s) 06/13/2021 11:40 AM Advance Directive(s) 02/12/2021 9:32 AM Advance Directive(s) 02/06/2021 9:18 AM Documents on File Type Date Recorded Patient 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 Block Cutter Expl 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 Advance Directive(s) 11/06/2021 12:00 AM Advance Directive(s) 07/18/2021 1:25 PM Advance Directive(s) 06/13/2021 11:40 AM Advance Directive(s) 02/12/2021 9:32 AM Advance Directive(s) 02/06/2021 9:18 AM Documents on File Type Date Recorded Patient 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 [address] [address] [phone] [facility] [address] [place] [address] Referral ID Status Reason Start Date Expiration Date V isits Requested Visits Authorized [id number] Closed PCP Requested Referral Auto-Generated Referral 02/23/2022 05/24/2022 1 1 Specialty Diagnoses / Procedures Referred By Contac t Referred To Contact Urology Diagnoses Sensation of pressure in bladder area Procedures CONSULT TO UROLOGY OFFICE/OUTPATIENT NEW HIGH MDM 60-74 MINUTES Paula Tello, LOADERS.BLEACH RANGE OPERATOR [address] [id number] Referral ID Status Reason Start Date Expiration Date Visits Requested Visits Authorized [id number] Authorized PCP Requested Referral 04/01/2022 04/01/2023 1 1 Specialty Diagnoses / Procedures Referred By Contac t Referred To Contact [facility] Diagnoses Spasm of muscle Procedures PT REHAB FOLLOW UP ORDER THERAPEUTIC EXERCISES RE, EA 15 MIN. Sloan Sherman MD [address] [place] [address] [facility] [address] [address] Referral ID Status Reason Start Date Expiration Date V isits Requested Visits Authorized [id number] Closed PCP Requested Referral Auto-Generated Referral 04/13/2022 07/12/2022 1 1 Specialty Diagnoses / Procedures Referred By Contac t Referred To Contact [facility] Diagnoses Dyspareunia in female High-tone pelvic floor dysfunction Procedures CONSULT TO INSTRUCTOR ROBOTICS OCCUPATIONAL THERAPY EVAL HIGH COMPLEX 60 MINS Giovana Kasper MD [address] [place], [place] [id number] [facility] [address] [address] Referral ID Status Reason Start Date Expiration Date Visits Requested Visits Authorized [id number] Pending Review Auto-Generat ed Referral 06/27/2022 06/27/2023 1 1 Specialty Diagnoses / Procedures Referred By Contean t Referred To Contact [facility] Diagnoses Dyspareunia in female Procedures CONSULT TO PHYSICAL THERAPY PHYSICAL THERAPY EVALUATION HIGH COMPLEX 45 MINS Giovana Kasper MD [address] [place], [place] [phone] [address] [address] Referral ID Status Reason Start Date Expiration Date Visits Requested Visits Authorized [id number] Pending Review Auto-Generat ed Referral 06/27/2022 06/25/2023 1 1 Reason *Waiting for appt had Dr. Jones and had a good experience when he was at [facility]. Father had colorectal cancer and Payal personally had breast cancer. no symptoms Diagnosis 1 Screening for colon cancer (Z12.11) Referral Organization [facility] Referring Provider First Name Sloan Referring Provider Last Name Jorge Luis Referring Provider Specialty Family Medi cine Referred Organization [facility] Gastroenterolo gy Referred Provider Jenny Singleton Referred Address [address] ,[place], [place],[address] Referred Provider Specialty Gastroentero logy Referral Priority Routine General Notes Yenny Gonzalez 12:35:24 PM >received today, sent P2P Medications Administered Section Inactive Administered Medications - up to 3 most recent administrations Medication Order MAR Action Action Date Dose Rate Site acetaminophen 650 mg tab(s) (TYLENOL) 650 mg, ORAL, ONCE, 1 dose, On Wed04/01/22 at 1030, Give 30 minutes before infusion. No more than 4000 mg of acetaminophen should be given per day (FROM ALL SOURCES), If ordered PRN for pain, patient/guardian may elect to receive this medication for higher pain levels INSTEAD of the opioid, if preferred: N/A Given 04/01/2022 10:42 AM EDT 650 mg dexAMETHasone sodium phosphate 8 mg injection (DECADRON) 8 mg, INTRAVENOUS, ONCE, 1 dose, On Wed04/01/22 at 1030 Given 04/01/2022 10:53 AM EDT 8 mg ondansetron (PF) 8 mg injection (ZOFRAN) 8 mg, INTRAVENOUS, ONCE, 1 dose, On Wed04/01/22 at 1030, Give IV push over 2 minutes Given 04/01/2022 10:49 AM EDT 8 mg zoledronic fy-anxzkeox-3.9NaCl 4 mg iv piggyback 100 mL (ZOMETA) 4 mg, INTRAVENOUS, Administer over 15 Minutes, ONCE, 1 dose, On Wed04/01/22 at 1000, Hazardous Potential Reproductive Risk Drug: Use appropriate PPE. New Bag/Syringe/Bottle 04/01/2022 11:33 AM EDT 4 mg Inactive Administered Medications - up to 3 most recent administrations Medication Order MAR Action Action Date Dose Rate Site lidocaine urojet 2 % 11 mL topical gel (XYLOCAINE, GLYDO) 11 mL, URETHRAL, ONCE, 1 dose, On Wed05/26/22 at 1530, FOR EXTERNAL USE ONLY APPLY TO: urethra Given 05/26/2022 3:48 PM EDT 11 mL Inactive Administered Medications - up to 3 most recent administrations Medication Order MAR Action Action Date Dose Rate Site acetaminophen 650 mg tab(s) (TYLENOL) 650 mg, ORAL, ONCE, 1 dose, On Wed10/05/22 at 1530, Give 30 minutes before infusion. No more than 4000 mg of acetaminophen should be given per day (FROM ALL SOURCES), If ordered PRN for pain, patient/guardian may elect to receive this medication for higher pain levels INSTEAD of the opioid, if preferred: N/A Given 10/05/2022 3:22 PM EST 650 mg dexAMETHasone sodium phosphate 8 mg injection (DECADRON) 8 mg, INTRAVENOUS, ONCE, 1 dose, On Wed10/05/22 at 1530 Given 10/05/2022 3:32 PM EST 8 mg ondansetron (PF) 8 mg injection (ZOFRAN) 8 mg, INTRAVENOUS, ONCE, 1 dose, On Wed10/05/22 at 1530, Give IV push over 2 minutes Given 10/05/2022 3:27 PM EST 8 mg zoledronic yl-zrrohcvc-5.9NaCl 4 mg iv piggyback 100 mL (ZOMETA) 4 mg, INTRAVENOUS, Administer over 30 Minutes, ONCE, 1 dose, On Wed10/05/22 at 1530, Hazardous Potential Reproductive Risk Drug: Use appropriate PPE. New Bag/Syringe/Bottle 10/05/2022 4:00 PM EST 4 mg Inactive Administered Medications - up to 3 most recent administrations Medication Order MAR Action Action Date Dose Rate Site acetaminophen 650 mg tab(s) (TYLENOL) 650 mg, ORAL, ONCE, 1 dose, On Adriana 10/07/23 at 1000, Give 30 minutes before infusion. No more than 4000 mg of acetaminophen should be given per day (FROM ALL SOURCES), If ordered PRN for pain, patient/guardian may elect to receive this medication for higher pain levels INSTEAD of the opioid, if preferred: N/A Given 10/07/2023 10:18 AM EST 650 mg dexAMETHasone sodium phosphate 8 mg injection (DECADRON) 8 mg, INTRAVENOUS, ONCE, 1 dose, On Adriana 10/07/23 at 1000 Given 10/07/2023 10:24 AM EST 8 mg ondansetron (PF) 8 mg injection (ZOFRAN) 8 mg, INTRAVENOUS, ONCE, 1 dose, On Adriana 10/07/23 at 1000, Give IV push over 2 minutes Given 10/07/2023 10:20 AM EST 8 mg zoledronic dc-jyguoxwr-6.9NaCl 4 mg iv piggyback 100 mL (ZOMETA) 4 mg, INTRAVENOUS, Administer over 30 Minutes, ONCE, 1 dose, On Adriana 10/07/23 at 1030, Hazardous Potential Reproductive Risk Drug: Use appropriate PPE. New Bag/Syringe/Bottle 10/07/2023 10:58 AM EST 4 mg Chief Complaint and Reason for Visit Chief Complaint Hip Issue Cough, congestion Sick-Influenza A Reason for Visit Acute right hip pain Influenza A (H1N1) Additional Source Comments INFORMATION SOURCE (unrecogn ized section and content) DATE CREATED AUTHOR 12/19/2021 [facility] DATE CREATED AUTHOR AUTHOR'S ORGANIZ ATION 03/10/2022 [facility] DATE CREATED AUTHOR AUTHOR'S ORGANIZ ATION 05/08/2022 [facility] DATE CREATED AUTHOR AUTHOR'S ORGANIZ ATION 03/08/2024 [facility] dical [facility] EPIC DATE CREATED AUTHOR AUTHOR'S ORGANIZ ATION 08/02/2024 [facility] Source Comments (unrecognize d section and content) In the event this informatio n is protected by the Federal Confidentiality of Alcohol and Drug Abuse Patient Records regulations: The Federal rules restrict any use of the information to criminally investigate or prosecute any alcohol or drug abuse patient.[facility] the event this information is protected by the Federal Confidentiality of Alcohol and Drug Abuse Patient Records regulations: The Federal rules restrict any use of the information to criminally investigate or prosecute any alcohol or drug abuse patient.[facility] the event this information is protected by the Federal Confidentiality of Alcohol and Drug Abuse Patient Records regulations: The Federal rules restrict any use of the information to criminally investigate or prosecute any alcohol or drug abuse patient.[facility] the event this information is protected by the Federal Confidentiality of Alcohol and Drug Abuse Patient Records regulations: The Federal rules restrict any use of the information to criminally investigate or prosecute any alcohol or drug abuse patient.[facility] the event this information is protected by the Federal Confidentiality of Alcohol and Drug Abuse Patient Records regulations: The Federal rules restrict any use of the information to criminally investigate or prosecute any alcohol or drug abuse patient.[facility] the event this information is protected by the Federal Confidentiality of Alcohol and Drug Abuse Patient Records regulations: The Federal rules restrict any use of the information to criminally investigate or prosecute any alcohol or drug abuse patient.[facility] the event this information is protected by the Federal Confidentiality of Alcohol and Drug Abuse Patient Records regulations: The Federal rules restrict any use of the information to criminally investigate or prosecute any alcohol or drug abuse patient.[facility] the event this information is protected by the Federal Confidentiality of Alcohol and Drug Abuse Patient Records regulations: The Federal rules restrict any use of the information to criminally investigate or prosecute any alcohol or drug abuse patient.[facility] the event this information is protected by the Federal Confidentiality of Alcohol and Drug Abuse Patient Records regulations: The Federal rules restrict any use of the information to criminally investigate or prosecute any alcohol or drug abuse patient.[facility] the event this information is protected by the Federal Confidentiality of Alcohol and Drug Abuse Patient Records regulations: The Federal rules restrict any use of the information to criminally investigate or prosecute any alcohol or drug abuse patient.[facility] the event this information is protected by the Federal Confidentiality of Alcohol and Drug Abuse Patient Records regulations: The Federal rules restrict any use of the information to criminally investigate or prosecute any alcohol or drug abuse patient.[facility] the event this information is protected by the Federal Confidentiality of Alcohol and Drug Abuse Patient Records regulations: The Federal rules restrict any use of the information to criminally investigate or prosecute any alcohol or drug abuse patient.[facility] the event this information is protected by the Federal Confidentiality of Alcohol and Drug Abuse Patient Records regulations: The Federal rules restrict any use of the information to criminally investigate or prosecute any alcohol or drug abuse patient.[facility] the event this information is protected by the Federal Confidentiality of Alcohol and Drug Abuse Patient Records regulations: The Federal rules restrict any use of the information to criminally investigate or prosecute any alcohol or drug abuse patient.[facility] the event this information is protected by the Federal Confidentiality of Alcohol and Drug Abuse Patient Records regulations: The Federal rules restrict any use of the information to criminally investigate or prosecute any alcohol or drug abuse patient.[facility] the event this information is protected by the Federal Confidentiality of Alcohol and Drug Abuse Patient Records regulations: The Federal rules restrict any use of the information to criminally investigate or prosecute any alcohol or drug abuse patient.[facility] the event this information is protected by the Federal Confidentiality of Alcohol and Drug Abuse Patient Records regulations: The Federal rules restrict any use of the information to criminally investigate or prosecute any alcohol or drug abuse patient.[facility] Center[facility] the event this information is protected by the Federal Confidentiality of Alcohol and Drug Abuse Patient Records regulations: The Federal rules restrict any use of the information to criminally investigate or prosecute any alcohol or drug abuse patient.[facility] Center[facility] the event this information is protected by the Federal Confidentiality of Alcohol and Drug Abuse Patient Records regulations: The Federal rules restrict any use of the information to criminally investigate or prosecute any alcohol or drug abuse patient.[facility] CenterIn the event this information is protected by the Federal Confidentiality of Alcohol and Drug Abuse Patient Records regulations: The Federal rules restrict any use of the information to criminally investigate or prosecute any alcohol or drug abuse patient.[facility] Center[facility] the event this information is protected by the Federal Confidentiality of Alcohol and Drug Abuse Patient Records regulations: The Federal rules restrict any use of the information to criminally investigate or prosecute any alcohol or drug abuse patient.[facility] CenterIn the event this information is protected by the Federal Confidentiality of Alcohol and Drug Abuse Patient Records regulations: The Federal rules restrict any use of the information to criminally investigate or prosecute any alcohol or drug abuse patient.[facility] CenterIn the event this information is protected by the Federal Confidentiality of Alcohol and Drug Abuse Patient Records regulations: The Federal rules restrict any use of the information to criminally investigate or prosecute any alcohol or drug abuse patient.[facility] CenterIn the event this information is protected by the Federal Confidentiality of Alcohol and Drug Abuse Patient Records regulations: The Federal rules restrict any use of the information to criminally investigate or prosecute any alcohol or drug abuse patient.[facility] CenterIn the event this information is protected by the Federal Confidentiality of Alcohol and Drug Abuse Patient Records regulations: The Federal rules restrict any use of the information to criminally investigate or prosecute any alcohol or drug abuse patient.[facility] CenterIn the event this information is protected by the Federal Confidentiality of Alcohol and Drug Abuse Patient Records regulations: The Federal rules restrict any use of the information to criminally investigate or prosecute any alcohol or drug abuse patient.[facility] CenterIn the event this information is protected by the Federal Confidentiality of Alcohol and Drug Abuse Patient Records regulations: The Federal rules restrict any use of the information to criminally investigate or prosecute any alcohol or drug abuse patient.[facility] CenterIn the event this information is protected by the Federal Confidentiality of Alcohol and Drug Abuse Patient Records regulations: The Federal rules restrict any use of the information to criminally investigate or prosecute any alcohol or drug abuse patient.[facility] CenterIn the event this information is protected by the Federal Confidentiality of Alcohol and Drug Abuse Patient Records regulations: The Federal rules restrict any use of the information to criminally investigate or prosecute any alcohol or drug abuse patient.[facility] CenterIn the event this information is protected by the Federal Confidentiality of Alcohol and Drug Abuse Patient Records regulations: The Federal rules restrict any use of the information to criminally investigate or prosecute any alcohol or drug abuse patient.[facility] the event this information is protected by the Federal Confidentiality of Alcohol and Drug Abuse Patient Records regulations: The Federal rules restrict any use of the information to criminally investigate or prosecute any alcohol or drug abuse patient.[facility] CenterIn the event this information is protected by the Federal Confidentiality of Alcohol and Drug Abuse Patient Records regulations: The Federal rules restrict any use of the information to criminally investigate or prosecute any alcohol or drug abuse patient.[facility] CenterIn the event this information is protected by the Federal Confidentiality of Alcohol and Drug Abuse Patient Records regulations: The Federal rules restrict any use of the information to criminally investigate or prosecute any alcohol or drug abuse patient.[facility] CenterIn the event this information is protected by the Federal Confidentiality of Alcohol and Drug Abuse Patient Records regulations: The Federal rules restrict any use of the information to criminally investigate or prosecute any alcohol or drug abuse patient.[facility] CenterIn the event this information is protected by the Federal Confidentiality of Alcohol and Drug Abuse Patient Records regulations: The Federal rules restrict any use of the information to criminally investigate or prosecute any alcohol or drug abuse patient.[facility] CenterIn the event this information is protected by the Federal Confidentiality of Alcohol and Drug Abuse Patient Records regulations: The Federal rules restrict any use of the information to criminally investigate or prosecute any alcohol or drug abuse patient.[facility] CenterIn the event this information is protected by the Federal Confidentiality of Alcohol and Drug Abuse Patient Records regulations: The Federal rules restrict any use of the information to criminally investigate or prosecute any alcohol or drug abuse patient.[facility] CenterIn the event this information is protected by the Federal Confidentiality of Alcohol and Drug Abuse Patient Records regulations: The Federal rules restrict any use of the information to criminally investigate or prosecute any alcohol or drug abuse patient.[facility] CenterIn the event this information is protected by the Federal Confidentiality of Alcohol and Drug Abuse Patient Records regulations: The Federal rules restrict any use of the information to criminally investigate or prosecute any alcohol or drug abuse patient.[facility] CenterIn the event this information is protected by the Federal Confidentiality of Alcohol and Drug Abuse Patient Records regulations: The Federal rules restrict any use of the information to criminally investigate or prosecute any alcohol or drug abuse patient.[facility] CenterIn the event this information is protected by the Federal Confidentiality of Alcohol and Drug Abuse Patient Records regulations: The Federal rules restrict any use of the information to criminally investigate or prosecute any alcohol or drug abuse patient.[facility] CenterIn the event this information is protected by the Federal Confidentiality of Alcohol and Drug Abuse Patient Records regulations: The Federal rules restrict any use of the information to criminally investigate or prosecute any alcohol or drug abuse patient.[facility] CenterIn the event this information is protected by the Federal Confidentiality of Alcohol and Drug Abuse Patient Records regulations: The Federal rules restrict any use of the information to criminally investigate or prosecute any alcohol or drug abuse patient.[facility] CenterIn the event this information is protected by the Federal Confidentiality of Alcohol and Drug Abuse Patient Records regulations: The Federal rules restrict any use of the information to criminally investigate or prosecute any alcohol or drug abuse patient.[facility] CenterIn the event this information is protected by the Federal Confidentiality of Alcohol and Drug Abuse Patient Records regulations: The Federal rules restrict any use of the information to criminally investigate or prosecute any alcohol or drug abuse patient.[facility] CenterIn the event this information is protected by the Federal Confidentiality of Alcohol and Drug Abuse Patient Records regulations: The Federal rules restrict any use of the information to criminally investigate or prosecute any alcohol or drug abuse patient.[facility] Care Teams (unrecognized sec tion and content) Aircraft Landing Gear Inspector Relationship Specialty Start Date End Date Sloan Sherman MD [address] [place] [address] PCP - General Family Practice 05/07/17 Stanislaw Hutton MD [address] [place] [address] Radiation Oncology 01/21/21 Rafi Salcedo MD [address] [facility] [place] [address] Physician Hematology/Oncology 03/21/21 Arline Pineda, SHWETA.[facility] [address] [facility] [place] [address] Nurse Practitioner Hematology/Oncology 03/21/21 Chantal Carr, PARKER [address] [facility] [place] [address] Specialty Logging Worker Hematology/Oncology 03/21/21 Radha Dawkins LSW Systems Integration Analyst 04/01/21 Brit Brooks, RN Specialty Logging Worker Hematology/Oncology 08/29/21 Aircraft Landing Gear Inspector Relationship Specialty Start Date End Date Sloan Sherman MD [address] [place] [address] PCP - General Family Practice 05/07/17 Stanislaw Hutton MD [address] [place] [address] Radiation Oncology 01/21/21 Rafi Salcedo MD [address] [facility] [place] [address] Physician Hematology/Oncology 03/21/21 Arline Pineda, LOADERS.BLEACH RANGE OPERATOR [address] [facility] [address] Nurse Practitioner Hematology/Oncology 03/21/21 Chantal Carr, PARKER [address] [facility] [address] Specialty Logging Worker Hematology/Oncology 03/21/21 Radha Dawkins LSW Systems Integration Analyst 04/01/21 Brit Brooks, PARKER Specialty Logging Worker Hematology/Oncology 08/29/21 Aircraft Landing Gear Inspector Relationship Specialty Start Date End Date Sloan Sherman MD [address] [place] [address] PCP - General Family Practice 05/07/17 Stanislaw Hutton MD [address] [place] [address] Radiation Oncology 01/21/21 Rafi Salcedo MD [address] [facility] [place] [address] Physician Hematology/Oncology 03/21/21 Arline Pineda, LOADERS.BLEACH RANGE OPERATOR [address] [facility] [address] Nurse Practitioner Hematology/Oncology 03/21/21 Chantal Carr, RN [address] [facility] [address] Specialty Logging Worker Hematology/Oncology 03/21/21 Radha Dawkins LSW Systems Integration Analyst 04/01/21 Brit Brooks, RN Specialty Logging Worker Hematology/Oncology 08/29/21 Aircraft Landing Gear Inspector Relationship Specialty Start Date End Date Sloan Sherman MD [address] [place] [address] PCP - General Family Practice 05/07/17 Stanislaw Hutton MD [address] [place] [address] Radiation Oncology 01/21/21 Rafi Salcedo MD [address] [facility] [address] Physician Hematology/Oncology 03/21/21 Arline Pineda, LOADERS.BLEACH RANGE OPERATOR [address] [facility] [place] [place] [address] Nurse Practitioner Hematology/Oncology 03/21/21 Chantal Carr, RN [address] [facility] [place] [place] [address] Specialty Logging Worker Hematology/Oncology 03/21/21 Radha Dawkins LSW Systems Integration Analyst 04/01/21 Brit Brooks, RN Specialty Logging Worker Hematology/Oncology 08/29/21 Aircraft Landing Gear Inspector Relationship Specialty Start Date End Date Sloan Sherman MD [address] [place] [address] PCP - General Family Practice 05/07/17 Stanislaw Hutton MD [address] [place] [address] Radiation Oncology 01/21/21 Rafi Salcedo MD [address] [facility] [address] Physician Hematology/Oncology 03/21/21 Arline Pineda, LOADERS.BLEACH RANGE OPERATOR [address] [facility] [address] Nurse Practitioner Hematology/Oncology 03/21/21 Chantal Carr, PARKER [address] [facility] [address] Specialty Logging Worker Hematology/Oncology 03/21/21 Radha Dawkins LSW Systems Integration Analyst 04/01/21 Brit Brooks, PARKER Specialty Logging Worker Hematology/Oncology 08/29/21 Aircraft Landing Gear Inspector Relationship Specialty Start Date End Date Sloan Sherman MD [address] [place] [address] PCP - General Family Practice 05/07/17 Stanislaw Hutton MD [address] [place] [address] Radiation Oncology 01/21/21 Rafi Salcedo MD [address] [facility] [address] Physician Hematology/Oncology 03/21/21 Arline Pineda, LOADERS.BLEACH RANGE OPERATOR [address] [facility] [address] Nurse Practitioner Hematology/Oncology 03/21/21 Chantal Carr, PARKER [address] [facility] [address] Specialty Logging Worker Hematology/Oncology 03/21/21 Radha Dawkins LSW Systems Integration Analyst 04/01/21 Brit Brooks, PARKER Specialty Logging Worker Hematology/Oncology 08/29/21 Aircraft Landing Gear Inspector Relationship Specialty Start Date End Date Sloan Sherman MD [address] [place] [address] PCP - General Family Practice 05/07/17 Stanislaw Hutton MD [address] [place], [place] [id number] Radiation Oncology 01/21/21 Rafi Salcedo MD [address] [facility] [address] Physician Hematology/Oncology 03/21/21 Arline Pineda, LOADERS.BLEACH RANGE OPERATOR [address] [facility] [address] [place], [place] [address] Nurse Practitioner Hematology/Oncology 03/21/21 Chantal Carr, PARKER [address] [facility] [address] Specialty Logging Worker Hematology/Oncology 03/21/21 Radha Dawkins LSW Systems Integration Analyst 04/01/21 Brit Brooks, PARKER Specialty Logging Worker Hematology/Oncology 08/29/21 Aircraft Landing Gear Inspector Relationship Specialty Start Date End Date Sloan Sherman MD [address] [place] [address] PCP - General [facility] Practice 05/07/17 Stanislaw Hutton MD [address] [place] [address] Radiation Oncology 01/21/21 Rafi Salcedo MD [address] [facility] [address] Physician Hematology/Oncology 03/21/21 Arline Pineda, LOADERS.BLEACH RANGE OPERATOR [address] [facility] [address] Nurse Practitioner Hematology/Oncology 03/21/21 Chantal Carr, RN [address] [facility] [address] Specialty Logging Worker Hematology/Oncology 03/21/21 Radha Dawkins, EMANI Systems Integration Analyst 04/01/21 Brit Brooks, RN Specialty Logging Worker Hematology/Oncology 08/29/21 Aircraft Landing Gear Inspector Relationship Specialty Start Date End Date Sloan Sherman MD [address] [place] [address] PCP - General Family Practice 05/07/17 Stanislaw Hutton MD [address] [place] [address] Radiation Oncology 01/21/21 Rafi Salcedo MD [address] [facility] [address] [place], [place] [address] Physician Hematology/Oncology 03/21/21 Arline Pineda, LOADERS.BLEACH RANGE OPERATOR [address] [facility] [place] [place] [address] Nurse Practitioner Hematology/Oncology 03/21/21 Chantal Carr, RN [address] [facility] [address] Specialty Logging Worker Hematology/Oncology 03/21/21 Radha Dawkins, DIRECTOR ADVANCED Systems Integration Analyst 04/01/21 Brit Brooks, RN Specialty Logging Worker Hematology/Oncology 08/29/21 Aircraft Landing Gear Inspector Relationship Specialty Start Date End Date Sloan Sherman MD [address] [place] [address] PCP - General Family Practice 05/07/17 Stanislaw Hutton MD [address] [place] [address] Radiation Oncology 01/21/21 Rafi Salcedo MD [address] [facility] [address] Physician Hematology/Oncology 03/21/21 Arline Pineda, LOADERS.BLEACH RANGE OPERATOR [address] [facility] [address] Nurse Practitioner Hematology/Oncology 03/21/21 Chantal Carr, PARKER [address] [place] [address] [place] [address] Specialty Logging Worker Hematology/Oncology 03/21/21 Radha Dawkins LSW Systems Integration Analyst 04/01/21 Brit Brooks, PARKER Specialty Logging Worker Hematology/Oncology 08/29/21 Aircraft Landing Gear Inspector Relationship Specialty Start Date End Date Sloan Sherman MD [address] [place] [address] PCP - General Family Practice 05/07/17 Stanislaw Hutton MD [address] [place] [address] Radiation Oncology 01/21/21 Rafi Salcedo MD [address] [facility] [address] Physician Hematology/Oncology 03/21/21 Arline Pineda, LOADERS.BLEACH RANGE OPERATOR [address] [facility] [address] Nurse Practitioner Hematology/Oncology 03/21/21 Chantal Carr, PARKER [address] [place] [address] [place] [address] Specialty Logging Worker Hematology/Oncology 03/21/21 Radha Dawkins LSW Systems Integration Analyst 04/01/21 Brit Brooks, RN Specialty Logging Worker Hematology/Oncology 08/29/21 Aircraft Landing Gear Inspector Relationship Specialty Start Date End Date Sloan Sherman MD [address] [place] [address] PCP - General Family Practice 05/07/17 Stanislaw Hutton MD [address] [place], [place] [id number] Radiation Oncology 01/21/21 Rafi Salcedo MD [address] [facility] [address] Physician Hematology/Oncology 03/21/21 Arline Pineda, LOADERS.BLEACH RANGE OPERATOR [address] [facility] [address] Nurse Practitioner Hematology/Oncology 03/21/21 Chantal Carr, PARKER [address] [facility] [address] Specialty Logging Worker Hematology/Oncology 03/21/21 Radha Dawkins LSW Systems Integration Analyst 04/01/21 Brit Brooks RN Specialty Logging Worker Hematology/Oncology 08/29/21 Aircraft Landing Gear Inspector Relationship Specialty Start Date End Date Sloan Sherman MD [address] [place] [address] PCP - General Family Practice 05/07/17 Stanislaw Hutton MD [address] [place] [address] Radiation Oncology 01/21/21 Rafi Salcedo MD [address] [facility] [address] Physician Hematology/Oncology 03/21/21 Arline Pineda, LOADERS.BLEACH RANGE OPERATOR [address] [facility] [address] Nurse Practitioner Hematology/Oncology 03/21/21 Chantal Carr, RN [address] [facility] [address] Specialty Logging Worker Hematology/Oncology 03/21/21 Radha Dawkins LSW Systems Integration Analyst 04/01/21 Brooks, Brit, RN Specialty Logging Worker Hematology/Oncology 08/29/21 Aircraft Landing Gear Inspector Relationship Specialty Start Date End Date Sloan Sherman MD [address] [place] [address] PCP - General Family Practice 05/07/17 Stanislaw Hutton MD [address] [place] [address] Radiation Oncology 01/21/21 Rafi Salcedo MD [address] [facility] [address] Physician Hematology/Oncology 03/21/21 Arline Pineda, LOADERS.BLEACH RANGE OPERATOR [address] [facility] [address] Nurse Practitioner Hematology/Oncology 03/21/21 Chantal Carr, PARKER [address] [facility] [address] Specialty Logging Worker Hematology/Oncology 03/21/21 Radha Dawkins LSW Systems Integration Analyst 04/01/21 Brit Brooks, RN Specialty Logging Worker Hematology/Oncology 08/29/21 Aircraft Landing Gear Inspector Relationship Specialty Start Date End Date Sloan Sherman MD [address] [place] [address] PCP - General Family Practice 05/07/17 Stanislaw Hutton MD [address] [place] [address] Radiation Oncology 01/21/21 Rafi Salcedo MD [address] [facility] [address] Physician Hematology/Oncology 03/21/21 Arline Pineda, LOADERS.BLEACH RANGE OPERATOR [address] [facility] [address] Nurse Practitioner Hematology/Oncology 03/21/21 Chantal Carr, RN [address] [facility] [place] [address] Specialty Logging Worker Hematology/Oncology 03/21/21 Radha Dawkins LSW Systems Integration Analyst 04/01/21 Brit Brooks, RN Specialty Logging Worker Hematology/Oncology 08/29/21 Aircraft Landing Gear Inspector Relationship Specialty Start Date End Date Sloan Sherman MD [address] [place] [address] PCP - General Family Practice 05/07/17 Stanislaw Hutton MD [address] [place], [place] [id number] Radiation Oncology 01/21/21 Rafi Salcedo MD [address] [facility] [address] [place] [id number] Physician Hematology/Oncology 03/21/21 Arline Pineda, SHWETA.BLEACH RANGE OPERATOR [address] [facility] [address] Nurse Practitioner Hematology/Oncology 03/21/21 Chantal Carr, RN [address] [facility] [place] [place] [address] Specialty Logging Worker Hematology/Oncology 03/21/21 Radha Dawkins LSW Systems Integration Analyst 04/01/21 Brit Brooks, RN Specialty Logging Worker Hematology/Oncology 08/29/21 Aircraft Landing Gear Inspector Relationship Specialty Start Date End Date Sloan Sherman MD [address] [place] [address] PCP - General Family Medicine 05/07/17 Stanislaw Hutton MD [address] [place] [address] Radiation Oncology 01/21/21 Rafi Salcedo MD [address] [facility] [address] Physician Hematology/Oncology 03/21/21 Arline Pineda, LOADERS.[address] [place] [address] Nurse Practitioner Hematology/Oncology 03/21/21 Chantal Carr, PARKER [address] [place] [address] [place] [address] Specialty Logging Worker Hematology/Oncology 03/21/21 Radha Dawkins LSW Systems Integration Analyst 04/01/21 Brit Brooks RN Specialty Logging Worker Hematology/Oncology 08/29/21 Aircraft Landing Gear Inspector Relationship Specialty Start Date End Date Sloan Sherman MD [address] [place] [address] PCP - General Family Medicine 05/07/17 Stanislaw Hutton MD [address] [place] [address] Radiation Oncology 01/21/21 Rafi Salcedo MD [address] [facility] [address] Physician Hematology/Oncology 03/21/21 Arline Pineda, LOADERS.[address] [place] [address] Nurse Practitioner Hematology/Oncology 03/21/21 Chantal Carr, PARKER [address] [place] [address] [place] [address] Specialty Logging Worker Hematology/Oncology 03/21/21 Radha Dawkins LSW Systems Integration Analyst 04/01/21 Brit Brooks, PARKER Specialty Logging Worker Hematology/Oncology 08/29/21 Aircraft Landing Gear Inspector Relationship Specialty Start Date End Date Sloan Sherman MD [address] [place] [facility] [address] PCP - General Family Medicine 05/07/17 Stanislaw Hutton MD [address] [place] [address] Radiation Oncology 01/21/21 Rafi Salcedo MD [address] [facility] [address] Physician Hematology/Oncology 03/21/21 Arline Pineda, LOADERS.BLEACH RANGE OPERATOR [address] [facility] [address] Nurse Practitioner Hematology/Oncology 03/21/21 Chantal Carr, PARKER [address] [facility] [address] Specialty Logging Worker Hematology/Oncology 03/21/21 Radha Dawkins LSW Systems Integration Analyst 04/01/21 Brit Brooks, RN Specialty Logging Worker Hematology/Oncology 08/29/21 Aircraft Landing Gear Inspector Relationship Specialty Start Date End Date Sloan Sherman MD [address] [place] [address] PCP - General Family Medicine 05/07/17 Stanislaw Hutton MD [address] [place] [address] Radiation Oncology 01/21/21 Rafi Salcedo MD [address] [facility] [address] Physician Hematology/Oncology 03/21/21 Arline Pineda, LOADERS.BLEACH RANGE OPERATOR [address] [facility] [address] Nurse Practitioner Hematology/Oncology 03/21/21 Chantal Carr, PARKER [address] [facility] [address] Specialty Logging Worker Hematology/Oncology 03/21/21 Radha Dawkins LSW Systems Integration Analyst 04/01/21 Brit Brooks, PARKER Specialty Logging Worker Hematology/Oncology 08/29/21 Aircraft Landing Gear Inspector Relationship Specialty Start Date End Date Sloan Sherman MD [address] [place] [address] PCP - General Family Medicine 05/07/17 Stanislaw Hutton MD [address] [place] [address] Radiation Oncology 01/21/21 Rafi Salcedo MD [address] [facility] [address] Physician Hematology/Oncology 03/21/21 Arline Pineda, LOADERS.BLEACH RANGE OPERATOR [address] [facility] [address] Nurse Practitioner Hematology/Oncology 03/21/21 Chantal Carr, PARKER [address] [facility] [address] Specialty Logging Worker Hematology/Oncology 03/21/21 Radha Dawkins LSW Systems Integration Analyst 04/01/21 Brit Brooks, RN Specialty Logging Worker Hematology/Oncology 08/29/21 Aircraft Landing Gear Inspector Relationship Specialty Start Date End Date Sloan Sherman MD [address] [place] [address] PCP - General Family Medicine 05/07/17 Stanislaw Hutton MD [address] [place] [address] Radiation Oncology 01/21/21 Rafi Salcedo MD [address] [facility] [place] [address] Physician Hematology/Oncology 03/21/21 Arline Pineda, LOADERS.BLEACH RANGE OPERATOR [address] [place] [address] [place] [address] Nurse Practitioner Hematology/Oncology 03/21/21 Chantal Carr, PARKER [address] [place] [address] [place] [address] Specialty Logging Worker Hematology/Oncology 03/21/21 Radha Dawkins LSW Systems Integration Analyst 04/01/21 Brit Brooks RN Specialty Logging Worker Hematology/Oncology 08/29/21 Aircraft Landing Gear Inspector Relationship Specialty Start Date End Date Sloan Sherman MD [address] [place] [address] PCP - General Family Medicine 05/07/17 Stanislaw Hutton MD [address] [place], [place] [id number] Radiation Oncology 01/21/21 Rafi Salcedo MD [address] [place] [address] [place] [address] Physician Hematology/Oncology 03/21/21 Arline Pineda, LOADERS.BLEACH RANGE OPERATOR [address] [place] [address] [place] [address] Nurse Practitioner Hematology/Oncology 03/21/21 Chantal Carr, PARKER [address] [place] [address] [place] [address] Specialty Logging Worker Hematology/Oncology 03/21/21 Radha Dawkins LSW Systems Integration Analyst 04/01/21 Brit Brooks, PARKER Specialty Logging Worker Hematology/Oncology 08/29/21 Aircraft Landing Gear Inspector Relationship Specialty Start Date End Date Sloan Sherman MD [address] [place] [place] [address] PCP - General Family Medicine 05/07/17 Stanislaw Hutton MD [address] [place] [address] Radiation Oncology 01/21/21 Rafi Salcedo MD [address] [facility] [place] [address] Physician Hematology/Oncology 03/21/21 Arline Pineda, LOADERS.BLEACH RANGE OPERATOR [address] [facility] [place] [address] Nurse Practitioner Hematology/Oncology 03/21/21 Radha Dawkins LSW Systems Integration Analyst 04/01/21 Brit Brooks, RN Specialty Logging Worker Hematology/Oncology 08/29/21 Aircraft Landing Gear Inspector Relationship Specialty Start Date End Date Sloan Sherman MD [address] [place] [address] PCP - General Family Medicine 05/07/17 Stanislaw Hutton MD [address] [place] [address] Radiation Oncology 01/21/21 Rafi Salcedo MD [address] [facility] [place] [address] Physician Hematology/Oncology 03/21/21 Arline Pineda, LOADERS.BLEACH RANGE OPERATOR [address] [facility] [place] [address] Nurse Practitioner Hematology/Oncology 03/21/21 Radha Dawkins LSW Systems Integration Analyst 04/01/21 Brit Brooks, RN Specialty Logging Worker Hematology/Oncology 08/29/21 Aircraft Landing Gear Inspector Relationship Specialty Start Date End Date Sloan Sherman MD [address] [place] [address] PCP - General Family Medicine 05/07/17 Stanislaw Hutton MD [address] [place] [address] Radiation Oncology 01/21/21 Rafi Salcedo MD [address] [facility] [place] [address] Physician Hematology/Oncology 03/21/21 Arline Pineda, LOADERS.BLEACH RANGE OPERATOR [address] [facility] [place] [address] Nurse Practitioner Hematology/Oncology 03/21/21 Radha Dawkins LSW Systems Integration Analyst 04/01/21 Brit Brooks, RN Specialty Logging Worker Hematology/Oncology 08/29/21 Aircraft Landing Gear Inspector Relationship Specialty Start Date End Date Sloan Sherman MD [address] [place] [address] PCP - General Family Medicine 05/07/17 Stanislaw Hutton MD [address] [place] [address] Radiation Oncology 01/21/21 Rafi Salcedo MD [address] [facility] [place] [address] Physician Hematology/Oncology 03/21/21 Arline Pineda, LOADERS.BLEACH RANGE OPERATOR [address] [facility] [address] Nurse Practitioner Hematology/Oncology 03/21/21 Radha Dawkins, DIRECTOR ADVANCED Systems Integration Analyst 04/01/21 Brit Brooks, RN Specialty Logging Worker Hematology/Oncology 08/29/21 Aircraft Landing Gear Inspector Relationship Specialty Start Date End Date Sloan Sherman MD [address] [place] [address] PCP - General Family Medicine 05/07/17 Stanislaw Hutton MD [address] [place], [place] [id number] Radiation Oncology 01/21/21 Rafi Salcedo MD [address] [place] [address] [place] [address] Physician Hematology/Oncology 03/21/21 Arline Pineda APRN.BLEACH RANGE OPERATOR [address] [facility] [place] [place] [address] Nurse Practitioner Hematology/Oncology 03/21/21 Radha Dawkins LSW Systems Integration Analyst 04/01/21 Brit Brooks, RN Specialty Logging Worker Hematology/Oncology 08/29/21 Aircraft Landing Gear Inspector Relationship Specialty Start Date End Date Sloan Sherman MD [address] [place] [address] PCP - General Family Medicine 05/07/17 Stanislaw Hutton MD [address] [place], [place] [id number] Radiation Oncology 01/21/21 Rafi Salcedo MD [address] [facility] [place] [address] Physician Hematology/Oncology 03/21/21 Arline Pineda APRN.BLEACH RANGE OPERATOR [address] [place] [address] [place] [address] Nurse Practitioner Hematology/Oncology 03/21/21 Radha Dawkins, EMANI Systems Integration Analyst 04/01/21 Brit Brooks, PARKER Specialty Logging Worker Hematology/Oncology 08/29/21 Sloan Sherman MD [address] [place] [address] Referring Family Medicine 10/20/23 Team Status: Active Member Role Status Dates Sloan Sherman MD Primary Care Provider Active Team Status: Inactive Member Role Status Dates Sloan Sherman MD Primary Care Provide r, Attending Provider Active Start: January 19, 2024 End: January 19, 2024 Team Status: Inactive Member Role Status Dates Sloan Sherman MD Primary Care Provider Active Start: January 30, 2024 End: January 30, 2024 Amber Chávez APRN Attending Provider Active Start: January 30, 2024 End: January 30, 2024 Team Status: Inactive Member Role Status Dates Sloan Sherman MD Primary Care Provide r, Attending Provider Active Start: February 03, 2024 End: February 03, 2024 Aircraft Landing Gear Inspector Relationship Specialty Start Date End Date Sloan Sherman MD [address] [place] [id number] PCP - General Family Medicine 05/07/17 Stanislaw Hutton MD [address] [place] [address] Radiation Oncology 01/21/21 Rafi Salcedo MD [address] [place] [address] [place] [address] Physician Hematology/Oncology 03/21/21 Arline Pineda, LOADERS.BLEACH RANGE OPERATOR [address] [facility] [place] [place] [address] Nurse Practitioner Hematology/Oncology 03/21/21 Radha Dawkins, EMANI Systems Integration Analyst 04/01/21 Brit Brooks, RN Specialty Logging Worker Hematology/Oncology 08/29/21 Sloan Sherman MD [address] [place] [address] Referring Family Medicine 10/20/23 Aircraft Landing Gear Inspector Relationship Specialty Start Date End Date Sloan Sherman MD [address] [place] [address] PCP - General Family Medicine 05/07/17 Stanislaw Hutton MD [address] [place] [address] Radiation Oncology 01/21/21 Rafi Salcedo MD [address] [facility] [place] [place] [address] Physician Hematology/Oncology 03/21/21 Arline Pineda, LOADERS.BLEACH RANGE OPERATOR [address] [facility] [place] [place] [address] Nurse Practitioner Hematology/Oncology 03/21/21 Radha Dawkins, EMANI Systems Integration Analyst 04/01/21 Brit Brooks, RN Specialty Logging Worker Hematology/Oncology 08/29/21 Sloan Sherman MD [address] [place] [address] Referring Family Medicine 10/20/23 Aircraft Landing Gear Inspector Relationship Specialty Start Date End Date Sloan Sherman MD [address] [place] [facility] [place] [place] [address] PCP - General Family Medicine 05/07/17 Stanislaw Hutton MD [address] [place] [address] Radiation Oncology 01/21/21 Rafi Salcedo MD [address] [facility] [address] Physician Hematology/Oncology 03/21/21 Arline Pineda, SHWETA.BLEACH RANGE OPERATOR [address] [facility] [address] Nurse Practitioner Hematology/Oncology 03/21/21 Radha Dawkins LSW Systems Integration Analyst 04/01/21 Brit Brooks, RN Specialty Logging Worker Hematology/Oncology 08/29/21 Sloan Sherman MD [address] [place] [facility] [place] [place] [address] Referring Family Medicine 10/20/23 Aircraft Landing Gear Inspector Relationship Specialty Start Date End Date Sloan Sherman MD [address] [place] [facility] [place] [place] [id number] PCP - General Family Medicine 05/07/17 Stanislaw Hutton MD [address] [place] [address] Radiation Oncology 01/21/21 Rafi Salcedo MD [address] [facility] [address] Physician Hematology/Oncology 03/21/21 Arline Pineda, LOADERS.BLEACH RANGE OPERATOR [address] [facility] [place] [place] [address] Nurse Practitioner Hematology/Oncology 03/21/21 Radha Dawkins, DIRECTOR ADVANCED Systems Integration Analyst 04/01/21 Brit Brooks, RN Specialty Logging Worker Hematology/Oncology 08/29/21 Sloan Sherman MD [address] [place] [facility] [place] [place] [address] Referring Family Medicine 10/20/23 Aircraft Landing Gear Inspector Relationship Specialty Start Date End Date Sloan Sherman MD [address] [place] [address] PCP - General Family Medicine 05/07/17 Stanislaw Hutton MD [address] [place] [address] Radiation Oncology 01/21/21 Rafi Salcedo MD [address] [facility] [place] [address] Physician Hematology/Oncology 03/21/21 Arline Pineda, LOADERS.BLEACH RANGE OPERATOR [address] [facility] [place] [address] Nurse Practitioner Hematology/Oncology 03/21/21 Radha Dawkins LSW Systems Integration Analyst 04/01/21 Brit Brooks, RN Specialty Logging Worker Hematology/Oncology 08/29/21 Sloan Sherman MD [address] [place] [address] Referring Family Medicine 10/20/23 Aircraft Landing Gear Inspector Relationship Specialty Start Date End Date Sloan Sherman MD [address] [place] [place] [address] PCP - General Family Medicine 05/07/17 Stanislaw Hutton MD [address] [place] [address] Radiation Oncology 01/21/21 Rafi Salcedo MD [address] [facility] [place] [address] Physician Hematology/Oncology 03/21/21 Arline Pineda, LOADERS.BLEACH RANGE OPERATOR [address] [facility] [address] Nurse Practitioner Hematology/Oncology 03/21/21 Radha Dawkins LSW Systems Integration Analyst 04/01/21 Brit Brooks, RN Specialty Logging Worker Hematology/Oncology 08/29/21 Sloan Sherman MD [address] [place] [facility] [place] [place] [address] Referring Family Medicine 10/20/23 Aircraft Landing Gear Inspector Relationship Specialty Start Date End Date Sloan Sherman MD [address] [place] [place] [address] PCP - General Family Medicine 05/07/17 Stanislaw Hutton MD [address] [place] [address] Radiation Oncology 01/21/21 Rafi Salcedo MD [address] [facility] [place] [address] Physician Hematology/Oncology 03/21/21 Arline Pineda, LOADERS.BLEACH RANGE OPERATOR [address] [place] [address] [place] [address] Nurse Practitioner Hematology/Oncology 03/21/21 Radha Dawkins LSW Systems Integration Analyst 04/01/21 Brit Brooks, RN Specialty Logging Worker Hematology/Oncology 08/29/21 Sloan Sherman MD [address] [place] [address] Referring Family Medicine 10/20/23 Reason for Visit (unrecogniz ed section and content) Reason Comments PT Progress Note Physical Therapy Specialty Diagnoses / Procedures Referred By Contac t Referred To Contact PHYSICAL THERAPY Diagnoses High-tone pelvic floor dysfunction in female Spasm of muscle Procedures PT REHAB FOLLOW UP ORDER THERAPEUTIC EXERCISES RE, EA 15 MIN. Giovana Kasper MD [address] [place] [address] [place] [address] Referral ID Status Reason Start Date Expiration Date Visits Requested Visits Authorized [id number] Authorized PCP Requested Referral Auto-Generate d Referral 11/22/2021 11/21/2022 20 20 Reason Comments Established Patient Specialty Diagnoses / Procedures Referred By Contac t Referred To Contact Diagnoses Invasive ductal carcinoma of breast, female, left (HCC) Procedures INJECTION, ZOLEDRONIC ACID, 1 [place] [address] [id number] [facility] [address] [address] [place] [address] Referral ID Status Reason Start Date Expiration Date V isits Requested Visits Authorized [id number] Authorized 08/29/2021 09/22/2022 12 12 Reason Comments Post Op Reason Comments Thyroid Problem Specialty Diagnoses / Procedures Referred By Contac t Referred To Contact Physical Therapy / PHYSICAL THERAPY Diagnoses High-tone pelvic floor dysfunction in female Spasm of muscle Procedures PT REHAB FOLLOW UP ORDER THERAPEUTIC EXERCISES RE, EA 15 MIN. Giovana Kasper MD [address] [address] [place] [address] [place] [address] Reason Comments Refill Request Reason Comments Procedure Reason Comments Cystoscopy-1 Patient Education Reason Comments Referral Request Reason Comments Established Patient Reason Comments Medication Problem Reason Comments Care Coordination Reason Comments Radiology Mammogram Specialty Diagnoses / Procedures Referred By Contac t Referred To Contact BR IMAGING Diagnoses Mass of upper outer quadrant of left breast Procedures US BREAST LTD LT US BREAST UNI REAL TIME [place] [address] [id number] [facility] [address] [place] [address] Referral ID Status Reason Start Date Expiration Date V isits Requested Visits Authorized [id number] Closed Auto-Generate d Referral 08/05/2022 08/28/2023 1 1 Reason Comments [employer] Approval of Coverage [place] Thy roid 120 mg Reason Onset Date Comments Refill Request 09/30/2022 Reason Onset Date Comments Refill Request 12/02/2022 Reason Comments Lab Orders Referral ID Status Reason Start Date Expiration Date V isits Requested Visits Authorized [id number] Authorized 08/29/2021 11/21/2023 99 99 Reason Comments Radio Gen [id number] Specialty Diagnoses / Procedures Referred By Contac t Referred To Contact XR IMAGING Diagnoses Rib pain on right side Procedures XR RIBS/CHEST 3V AP RIB/OBLS/CXR RIGHT RADEX RIBS UNI W/POSTEROANT CH MINIMUM 3 VIEWS Paula Tello, LOADERS.BLEACH RANGE OPERATOR [address] [place] [address] [place] [address] Referral ID Status Reason Start Date Expiration Date V isits Requested Visits Authorized [id number] Closed Auto-Generate d Referral 10/07/2023 11/05/2024 1 1 Reason Comments Consult Referral ID Status Reason Start Date Expiration Date V isits Requested Visits Authorized [id number] Authorized 08/29/2021 11/21/2024 99 99 Reason Comments PHOTOS TAKEN Reason Comments Consult Reason Comments Breast/chest Surgery Goals (unrecognized section and content) Goals may be documented in a n alternate section FOR RECORDS PERTAINING TO PATIENTS WHO ARE OR HAVE BEEN ENROLLED IN A CHEMICAL DEPENDENCY/SUBSTANCEABUSE PROGRAM, SOME INFORMATION MAY BE OMITTED. This clinical summary was aggregated from multiple sources. Caution should be exercised in using it in the provision of clinical care. This summary normalizes information from multiple sources, and as a consequence, information in this document may materially change the coding, format and clinical context of patient data. In addition, data may be omitted in some cases. CLINICAL DECISIONS SHOULD BE BASED ON THE PRIMARY CLINICAL RECORDS. [facility] [employer] [facility]. provides no warranty or guarantee of the accuracy or completeness of information in this document.
== END 2024-08-24 11:47 | disposition home or self-care (01) ==
LOC: RAD 11:47
PROVIDERS: PCP Family Medicine; Visit Provider Family Medicine
DX: M25.532 Pain in left wrist (principal); M79.642 Pain in left hand
CPT/HCPCS: 73110; 73130